=== PATIENT | female | born 2000 | race Caucasian/White ===

== ENCOUNTER 2023-08-17 13:30 | Outpatient (AMB) | payer OTHER, SELFPAY ==
--- NOTE | 2023-08-17 13:33 | MHC.OFFVIS ---
Intake Vital Signs 08/17/23 13:38 Height 5 ft 1 in Weight 210 lb BMI 39.7 BP 116/84 Blood Pressure Location Rt brachial Position Sitting Pulse 104 H Pulse Source Pulse Oximeter Pulse Oximetry (%) 99 Intake Visit Reasons: E-[employer]:RODRÍGUEZ/Insomnia/RLS?/concussion/BRIA/Unable to Lvm Intake Note: Patient presents for insomnia,BRIA and concussion. Patient states I've had alot of head trauma and a ot of symptoms with it to I also have insomnia. Allergies No Known Allergies Allergy (Verified 08/17/23 13:40) Medication List - Last Reconciled 08/17/23 by Glory Grace, ALEJANDRA alprazolam 0.5 mg PO DAILY PRN bupropion HCl 100 mg PO QAM dextroamphetamine-amphetamine 25 mg ER 1 cap PO QAM levonorgestrel-ethinyl estrad 0.1-20 mg-mcg (Vienva) 1 tab PO DAILY pantoprazole 40 mg PO DAILY topiramate 50 mg PO DAILY venlafaxine ER 37.5 mg PO DAILY HPI HPI Comments History of Present Illness Details Right-handed 23-yr-old female presents for new pt evaluation of headache and sleep disorder. Pt is accompanied by her friend. Pt reports she has had headaches since age 12-13 after she had a bad concussion. She had had 3 milder concussions prior to that. Headache questionnaire: Previous work-up? None Typical headache characteristics: Prodrome symptoms? Unsure Aura? Unsure Location, quality, characteristics? Pulling tightness in her mid-frontal- pressing/tightness pain. Pain intensity? 9/10 Associated symptoms? Photophobia, phonophobia, nausea, occasionally vomiting, brain fog, dizziness, yawning, fatigue, activity intolerance. Focal weakness, Parethesias, Autonomic s/s? Hand numbness (w/wo headaches), Postdrome? Usually not Triggers? not eating/drinking, poor sleep Any positional, valsalva, exertional, sexual activity triggers? None Menstrual triggers? None- on OCP Time of day? Usually later in the day Duration? A few hours Frequency? 4-5 times per week How does headache impact your life? She may not be able to do her daily activities. 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 Current acute medication use/interventions: Excedrin- not effective Previous acute medication use: None Current preventative medication use: Topiramate 50mg- for wet loss, but has not helped headaches. Venlafaxine- for mood, has not helped headaches, Previous preventative medication use: Sertraline- for mood and prevention. Non-pharmacological interventions: Ice pack History of musculoskeletal disorders or injury? Has some back pain. Had a back injury around age 12- from a figure skating accident. Used to have neck pain prior to perla mammoplasty in 2019. History of concussion/head injury? She had another concussion 2 yrs ago- s/s lasted just over a month. History of mood disorder? anxiety, depression, mood disorder, panic attacks. Currently looking for new psychiatrist. History of sleep disorder? Difficulty initiating and staying asleep, fatigue, snoring, am dry mouth. ESS- 12. She endorses BLE restlessness at rest and when in bed. She has h/o anemia. History of respiratory disease? Asthma History of CV disease? None History of coagulopathy? None History of endocrine or metabolic disease? None. Working w/ [employer] History of seizure? None History of GI disorder? GERD. Constipation, Diarrhea, blood in stool. Family planning? None- on OCP Family history of migraine or other headache disorder? mother has migraine and sleep apnea. PFSH Surgical History (Updated 08/17/23 @ 13:42 by ROBERT Isabel) Hx of bilateral breast reduction surgery Hx of cholecystectomy Family History (Updated 08/17/23 @ 13:43 by ROBERT Isabel) Mother Sleep apnea HTN (hypertension) Father Asthma Social History (Updated 08/17/23 @ 13:43 by ROBERT Isabel) Alcohol intake: current Patient Tobacco Use Status: Never used Tobacco Substance Use Type: Marijuana Questionnaire Restless Legs Rating Scale Overall, how would you rate the RLS discomfort in your legs or arms?: Severe Overall, how would you rate the need to move around because of your RLS symptoms?: Severe Overall, how much relief of your RLS arm or leg discomfort do you get from moving around?: Slight Relief Overall, how severe is your sleep disturbance from your RLS symptoms?: Severe How severe is your tiredness or sleepiness from your RLS symptoms?: Severe Overall, how severe is your RLS as a whole?: Severe How often do you get RLS symptoms?: Severe (This means 4 to 5 days a week.) When you have RLS symptoms, how severe are they on an average day?: Severe (This means 3 to 8 per 24 hour day.) Overall, how severe is the impact of your RLS symptoms on your ability to carry out your daily affairs, for example carrying out a satisfactory family, home, social, school, or work life?: Moderate How severe is your mood disturbance from your RLS symptoms-for example angry, depressed, sad, anxious, or irritable?: Moderate Total Score: 28 Rate your symptoms severity for the preceding week overall.: Severe Review of Systems Const Details: See scanned ROS form Physical Exam Vital Signs: Last Vital Signs Pulse 104 H 08/17/23 13:38 BP 116/84 08/17/23 13:38 Pulse Ox 99 08/17/23 13:38 BMI result Body Mass Index 39.7 Const Orientation/consciousness: patient oriented x3 HEENT Other: No palpable scalp tenderness. Mallampati grade IV Head: Yes normocephalic Resp Effort & Inspection: normal respiratory effort and able to speak in complete sentences Neuro Other: BUE- negative Tinel, Phalen, Medial compression tets Decreased right hand grasp Pronator drift- normal Right hand- decreased sensation General: patient oriented x3 Cranial nerves: Yes CN's II-XII intact bilaterally Cognition (Neuro): normal cognition Gait exam (Neuro): Normal gait present Deep tendon reflexes (DTR's): Right triceps reflex intensity grade: 2+, Left triceps reflex intensity grade: 2+, Rt Biceps (C5, C6): 2+, Left biceps reflex intensity grade: 2+, Right brachioradialis reflex intensity grade: 2+, Left brachioradialis reflex intensity grade: 2+, Right patellar reflex intensity grade: 2+ and Left patellar reflex intensity grade: 2+ Coordination: [id number] test normal Pupils: Normal pupillary reactivity/response: bilateral Psych Appearance: grossly normal Mental Status: mental status grossly normal Speech and movement: Normal speech and movement present Affect: normal affect Attitude: cooperative Thought process: Normal thought process present Assessment & Plan Assessment & Plan (1) Restless leg syndrome: Code(s): G25.81 - Restless legs syndrome (2) Anemia: Code(s): D64.9 - Anemia, unspecified (3) Numbness in both hands: Code(s): R20.0 - Anesthesia of skin (4) Worsening headaches: Code(s): R51.9 - Headache, unspecified (5) Weakness of right hand: Code(s): R29.898 - Other symptoms and signs involving the musculoskeletal system (6) Sleep difficulties: Code(s): G47.9 - Sleep disorder, unspecified (7) Snoring: Code(s): R06.83 - Snoring (8) Excessive daytime sleepiness: Code(s): G47.19 - Other hypersomnia (9) Chronic migraine without aura: Code(s): G43.709 - Chronic migraine without aura, not intractable, without status migrainosus Plan Pt advised to undergo: Brain MRI w/wo- to assess for central etiologies of worsening headaches, BUE paresthesias, decreased right hand grasp. BUE EMG/NCS HST to assess for sleep apnea. Will check labs to assess for common etiologies of RLS s/s. For overall headache management: Discussed importance of good self-care, including but not limited to maintaining a healthy diet, adequate fluid intake, adequate sleep, and engaging in regular physical activity. For headache triggers: Track headaches For acute headache treatment: Discussed importance of taking acute medications at the first sign of headache, however stressed importance of avoiding acute medication overuse (especially with combined headache medications). Trial Sumatriptan 100mg tab, 1/2 - 1 tab (50-100mg) at onset of headache, may repeat in 2 hours. Max of 2 tabs (200mg) per 24 hours. May adjunct with OTC Tylenol 650mg q 4 hours, Ibuprofen 600mg q 6 hours, or Naproxen 440mg q 12 hrs prn. Reviewed potential adverse effects of triptans, including but not limited to nausea, fatigue, chest tightness/tingling (usually passes within a few minutes), medication overuse headaches. Previous acute migraine medication trials: Excedrin Acute migraine medication contraindications: None at this time For headache prevention medication: Discussed that preventative medications should be taken routinely as prescribed for best effect, it may take several weeks for full effect to take effect. Start Emgality 240mg sc x's 1, then 120mg sc q month Continue Topiramate 50mg qd- for st loss Continue Venlafaxine 37.5mg qd- for mood Reviewed potential adverse effects of Emgality, including but not limited to injection site reactions. Previous migraine prevention medication trials: Sertraline- ineffective. Migraine prevention medication contraindications: Would not increase Topiramate furtehr- d/t pt already has paresthesias. BBs d/t asthma dx. Aimovig d/t constipation. Pt to follow-up in 3 months or sooner prn. Orders: Orders Comprehensive Met. Panel 08/17/23 D64.9 - Anemia, unspecified, G25.81 - Restless legs syndrome, R20.0 - Anesthesia of skin, R51.9 - Headache, unspecified MR head/brain wo/w con 08/17/23 R20.0 - Anesthesia of skin, R29.898 - Other symptoms and signs involving the musculoskeletal system, R51.9 - Headache, unspecified RT home sleep study Today G47.19 - Other hypersomnia, G47.9 - Sleep disorder, unspecified, R06.83 - Snoring Complete Blood Count Auto Diff 08/17/23 D64.9 - Anemia, unspecified, G25.81 - Restless legs syndrome, R20.0 - Anesthesia of skin, R51.9 - Headache, unspecified Vitamin B12 and Folate 08/17/23 D64.9 - Anemia, unspecified, G25.81 - Restless legs syndrome, R20.0 - Anesthesia of skin, R51.9 - Headache, unspecified Ferritin 08/17/23 D64.9 - Anemia, unspecified, G25.81 - Restless legs syndrome, R20.0 - Anesthesia of skin, R51.9 - Headache, unspecified IRON PROFILE 08/17/23 D64.9 - Anemia, unspecified, G25.81 - Restless legs syndrome, R20.0 - Anesthesia of skin, R51.9 - Headache, unspecified Folate 08/17/23 D64.9 - Anemia, unspecified, G25.81 - Restless legs syndrome, R20.0 - Anesthesia of skin, R51.9 - Headache, unspecified NE electromyogram (EMG) 08/17/23 R20.0 - Anesthesia of skin, R29.898 - Other symptoms and signs involving the musculoskeletal system Medications: New sumatriptan succinate 50 - 100 mg orally at onset of headache, may repeat in 2 hrs PRN; max 2 tabs per day or 4 tabs/week (may take with Ibuprofen) 12 tabs 6RF migraine headache 30 days galcanezumab-gnlm (Emgality Pen) 120 mg subcut ONCE 1 mL 6RF 30 days Coding Level of Care Code New Pt Level 4 (28984) Diagnoses Restless leg syndrome G25.81 Anemia D64.9 Numbness in both hands R20.0 Worsening headaches R51.9 Weakness of right hand R29.898 Sleep difficulties G47.9 Snoring R06.83 Excessive daytime sleepiness G47.19 Chronic migraine without aura G43.709
[2023-08-17 13:38] VITALS: BP 116/84; PULSE 104; O2SAT 99; BMI 39.7
== END 2023-08-17 15:14 | disposition home or self-care (01) ==
PROVIDERS: PCP Pediatrics; Visit Provider Nurse Practitioner Family
DX: G25.81 Restless legs syndrome (principal); D64.9 Anemia, unspecified; R20.0 Anesthesia of skin; R51.9 Headache, unspecified; R29.898 Other symptoms and signs involving the musculoskeletal system; G47.9 Sleep disorder, unspecified; R06.83 Snoring; G47.19 Other hypersomnia; G43.709 Chronic migraine without aura, not intractable, without status migrainosus
CPT/HCPCS: 99204

== ENCOUNTER → 2023-08-17 13:30 | Outpatient (BNVA) | payer OTHER, SELFPAY | PROVIDERS: PCP Pediatrics; Visit Provider Nurse Practitioner Family ==

== ENCOUNTER 2023-10-12 13:55 | Outpatient (REF) | payer OTHER, SELFPAY | END 2023-10-12 13:56 | disposition home or self-care (01) | LOC: HO.NEURO 13:55 | PROVIDERS: PCP Pediatrics; Visit Provider Nurse Practitioner Family | DX: R20.0 Anesthesia of skin (principal); R29.898 Other symptoms and signs involving the musculoskeletal system | CPT/HCPCS: 95886; 95911 ==

== ENCOUNTER → 2023-10-12 13:58 | Outpatient (BNV) | payer OTHER, SELFPAY | PROVIDERS: PCP Pediatrics; Visit Provider Physical Medicine & Rehabilitation | DX: R20.2 Paresthesia of skin (principal); M79.641 Pain in right hand; M79.642 Pain in left hand | CPT/HCPCS: 95886; 95911 ==

== ENCOUNTER → 2023-11-13 15:53 | Outpatient (REF) | payer OTHER, SELFPAY | LOC: HO.SL 15:53 | PROVIDERS: PCP Pediatrics; Visit Provider Nurse Practitioner Family | DX: G47.9 Sleep disorder, unspecified (principal); G47.19 Other hypersomnia; R06.83 Snoring | CPT/HCPCS: 95806 ==

== ENCOUNTER → 2023-11-13 16:01 | Outpatient (BNV) | payer OTHER, SELFPAY | PROVIDERS: PCP Pediatrics; Visit Provider Psychiatry & Neurology Neurology | DX: R06.83 Snoring (principal) | CPT/HCPCS: 95806 ==

== ENCOUNTER 2023-11-27 09:54 | Outpatient (AMB) | payer OTHER, SELFPAY ==
--- NOTE | 2023-11-27 10:10 | A.OFFVIS_ITS ---
Intake Vital Signs 11/27/23 10:11 Height 5 ft 1 in Weight 204 lb BMI 38.5 Pulse 100 Pulse Source Pulse Oximeter Pulse Oximetry (%) 99 Oxygen Delivery Method Room Air Intake Visit Reasons: 3 mo f/u-[place]elongo/Insonmina/RLs/concussion/Bari-LVM Intake Note: 3 month follow up insomnia. I've been sick lately because of my liver and stomach I'm looking into seeing a specialist at [facility]. Allergies No Known Allergies Allergy (Verified 11/27/23 10:15) Medication List - Last Reconciled 11/27/23 by ALEJANDRA Espinosa alprazolam 0.5 mg PO DAILY PRN bupropion HCl 100 mg PO QAM dextroamphetamine-amphetamine 25 mg ER 1 cap PO QAM galcanezumab-gnlm (Emgality Pen) 240 mg (2 mL) subcut ONCE 30 days levonorgestrel-ethinyl estrad 0.1-20 mg-mcg (Vienva) 1 tab PO DAILY pantoprazole 40 mg PO DAILY phentermine 15 mg PO DAILY sumatriptan succinate 50 - 100 mg orally at onset of headache, may repeat in 2 hrs PRN; max 2 tabs per day or 4 tabs/week (may take with Ibuprofen) 30 days topiramate 50 mg PO DAILY venlafaxine ER 37.5 mg PO DAILY HPI HPI Comments History of Present Illness Details 23-yr-old female presents for f/u visit. Pt reports she has had another exacerbation of her anorexia/vomiting s/s. She was out-of-work with this for 3 weeks in Oct. She continues to have days of vomiting, anorexia but when she does get hungry and eats- then she gets sick. She does have constant thirst- drinks water and Gatorade frequently. She is f/b PCP and weight loss clinic at [place]. Does need to establish care w/ an adult PCP. BUE EMG/NCS was normal. HST was done just recently, results pending. Initial lab work in August showed mildly elevated WBC, mildly low potassium, mildly elevated ALT, ferritin low normal at 26. She did have follow-up labs in October at [facility], which showed resolution of leukocytosis and hypokalemia, however her ALT and AST are now both elevated. See results below. Pt reports she has had migraines, more so when she does not feel well with her GI s/s. She continues to have some RUE numbness. In the past 2 weeks, she has had 2 migraine days per week. She tried Sumatriptan- caused some nausea, helped some. She did not start Emgality- was waiting for the loading dose. Baseline headache characteristics: Severe, Pulling tightness in her mid-frontal- pressing/tightness pain a/w photophobia, phonophobia, nausea, occasionally vom iting, brain fog, dizziness, yawning, fatigue, activity intolerance, Hand numbness (w/wo headaches). PFSH Surgical History Hx of bilateral breast reduction surgery Hx of cholecystectomy Family History Mother Sleep apnea HTN (hypertension) Father Asthma Social History (Updated 08/17/23 @ 13:43 by ROBERT Isabel) Alcohol intake: current Patient Tobacco Use Status: Never used Tobacco Substance Use Type: Marijuana Physical Exam Vital Signs: Last Vital Signs Pulse 100 11/27/23 10:11 Pulse Ox 99 11/27/23 10:11 Oxygen Delivery Method Room Air 11/27/23 10:11 BMI result Body Mass Index 38.5 Const General: cooperative and no acute distress Orientation/consciousness: patient oriented x3 Resp Effort & Inspection: normal respiratory effort and able to speak in complete sentences Neuro General: patient oriented x3 Cranial nerves: Yes CN's II-XII intact bilaterally Cognition (Neuro): normal cognition Psych Appearance: grossly normal Mental Status: mental status grossly normal Speech and movement: Normal speech and movement present Affect: normal affect Attitude: cooperative Results Reviewed Results Reviewed: BRL 10/11/23 11:15 08/17/23 15:39 WBC 8.4 12.6 H RBC 4.92 4.74 HGB 12.9 12.5 HCT 42 39.3 MCV 85.4 82.9 Platelet 325 299 ESR 15 Sodium 142 140 potassium 4.1 3.5 L chloride 107 108 bicarb level 24 19 anion gap 11 13 glucose level 94 73 BUN 11 11 creatinine 1.0 0.8 calcium 9.6 9.3 protein total 6.9 6.9 albumin 4.3 4.4 Ag ratio 1.7 1.8 alkaline phosphatase 91 98 lipase 20 AST 67 H 25 ALT 122 36 bilirubin total 0.6 0.6 vitamin B12 291 folic acid level 20 iron level 97 iron binding capacity unsaturated 342 iron binding capacity estimated 439 % iron sat 22 ferritin level 64 264 CRP 1.2 1.5 V-1-Bcyberkcxrs 207 Antitrypsin Phenotyping MM Ceruloplasmin 43 IgA 209 Tissue Transglutaminase Ab IgA < 0.5 Anti Hepatitis A IgM NEGATIVE Hepatitis B Surface Antigen NEGATIVE Hepatitis C Ab NEGATIVE Assessment & Plan Assessment & Plan (1) Chronic migraine without aura: Code(s): G43.709 - Chronic migraine without aura, not intractable, without status migrainosus (2) Nausea and vomiting: Code(s): R11.2 - Nausea with vomiting, unspecified (3) Postprandial vomiting: Code(s): R11.10 - Vomiting, unspecified (4) Weakness of right hand: Code(s): R29.898 - Other symptoms and signs involving the musculoskeletal system Plan Pt again advised to undergo: Brain MRI w/wo- to assess for central etiologies of worsening headaches, BUE paresthesias, decreased right hand grasp. HST completed- will review results when available. Reviewed recent labs- Aug 2024- notable for elevated WBC and K+- normal on f/u Oct 2023 labs, however increased AST/ALT. Will refer to GI. Reviewed BUE EMG/NCS- normal. For overall headache management: Continue to try to optimize good self-care, including but not limited to maintaining a healthy diet, adequate fluid intake, adequate sleep, and engaging in regular physical activity. For headache triggers: Track headaches For acute headache treatment: Hold Sumatriptan 100mg tab- not fully effective Trial rizatriptan 10 mg p.r.n., max daily dose 20 mg. Reviewed potential adverse effects of triptans, including but not limited to nausea, fatigue, chest tightness/tingling (usually passes within a few minutes), medication overuse headaches. Previous acute migraine medication trials: Excedrin Acute migraine medication contraindications: None at this time For headache prevention medication: Start Emgality 240mg sc x's 1, then 120mg sc q month Continue Topiramate 50mg qd- for wt loss Continue Venlafaxine 37.5mg qd- for mood Reviewed potential adverse effects of Emgality, including but not limited to injection site reactions. Previous migraine prevention medication trials: Sertraline- ineffective. Migraine prevention medication contraindications: Would not increase Topiramate further- d/t pt already has paresthesias. BBs d/t asthma dx. Aimovig d/t constipation. Future considerations: Amitriptyline which may help vomiting symptoms as well. Pt to follow-up in 3 months or sooner prn. Orders: Referrals Gastroenterology Referral G43.709 - Chronic migraine without aura, not intractable, without status migrainosus, R11.10 - Vomiting, unspecified, R11.2 - Nausea with vomiting, unspecified, R79.89 - Other specified abnormal findings of blood chemistry Medications: New rizatriptan max 2 tabs per day or 4 tabs per week 5 - 10 mg (0.5 - 1 x 10 mg) PO Q2H 21 days PRN 12 tabs 3RF migraine headache Changed From galcanezumab-gnlm (Emgality Pen) for 1st loading dose 120 mg subcut ONCE 30 days 2 mL 0RF To galcanezumab-gnlm (Emgality Pen) for 1st loading dose 240 mg (2 mL) subcut ONCE 30 days 2 mL 0RF Coding Level of Care Code Est Pt Level 4 (99635) Diagnoses Chronic migraine without aura G43.709 Nausea and vomiting R11.2 Postprandial vomiting R11.10 Weakness of right hand R29.897
[2023-11-27 10:11] VITALS: PULSE 100; O2SAT 99; BMI 38.5
== END 2023-11-27 11:05 | disposition home or self-care (01) ==
PROVIDERS: PCP Pediatrics; Visit Provider Nurse Practitioner Family
DX: G43.709 Chronic migraine without aura, not intractable, without status migrainosus (principal); R11.2 Nausea with vomiting, unspecified; R11.10 Vomiting, unspecified; R29.898 Other symptoms and signs involving the musculoskeletal system
CPT/HCPCS: 99214

== ENCOUNTER → 2023-11-27 09:54 | Outpatient (BNVA) | payer OTHER, SELFPAY | PROVIDERS: PCP Pediatrics; Visit Provider Nurse Practitioner Family ==

== ENCOUNTER 2023-12-31 10:25 | Outpatient (REF) | payer OTHER, SELFPAY ==
[2023-12-31 13:06] LABS: Alanine Aminotransferase 37 U/L (0-31); Albumin Level 4.1 g/dL (3.5-5.0); Alkaline Phosphatase 94 U/L (39-117); Aspartate Amino Transferase 26 U/L (5-31); Bilirubin Direct 0.2 mg/dL (0.0-0.5); Bilirubin Total 0.4 mg/dL (0.0-1.0); Lipase 12 U/L (8-78); Total Protein 7.3 g/dL (6.5-8.0)
[2023-12-31 13:25] LABS: Folate 8.8 ng/mL (> or = 4.0); Vitamin B12 285 pg/mL (200-900)
[2024-01-04 11:32] LABS: Vitamin D 25-OH, D2 <4 ng/mL; Vitamin D 25-OH, D3 35 ng/mL; Vitamin D 25-OH, Total 35 ng/mL (30-100)
[2024-01-05 16:28] LABS: Transglutaminase Ab IgG <1.0 U/mL; Transglutaminase IgA <1.0 U/mL
== END 2023-12-31 10:26 | disposition home or self-care (01) ==
LOC: HO.LAB 10:25
PROVIDERS: PCP Pediatrics; Visit Provider Nurse Practitioner Family
DX: R10.9 Unspecified abdominal pain (principal); E55.9 Vitamin D deficiency, unspecified; R74.01 Elevation of levels of liver transaminase levels; R19.7 Diarrhea, unspecified
CPT/HCPCS: 36415; 80076; 82306; 82607; 82746; 83690; 86364

== ENCOUNTER 2023-12-31 10:25 | Outpatient (AMB) | payer OTHER, SELFPAY ==
[2023-12-31 10:37] VITALS: BP 130/68; PULSE 78; O2SAT 99; BMI 38.5
--- NOTE | 2023-12-31 10:37 | A.OFFVIS_ITS ---
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 Patient reports that her symptoms of nausea and vomiting started about a year ago after [place]. Patient had couple episodes when she end up in the emergency room with last visit this past October. Patient reports that she used to smoke marijuana in the evening to help her go to sleep, however was told that that can cause hyperemesis and she stopped smoking. Patient states that she has not smoked since. Patient does not smoke any cigarettes does not drink any alcohol. She reports that when she gets those symptoms she will start vomiting and she is afraid to eat. In the past few weeks patient has been feeling okay without dyspepsia, dysphagia or odynophagia. No epigastric pain, however she does admit that she will have occasional loose stools. However patient does report that she is constipated and has been constipated for a long time. Patient reports that she was sent to middle school teacher when she was teenager for weight loss and she states that she rapidly last weight which caused her liver enzymes to go very high. Patient reports that since then she has gained lots of weight and now is going to bariatric services at [facility] for medical weight management. Patient does admit to be going under stress. 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 Patient denies any melena, hematochezia, unintentional weight loss or ribbon like stools. [facility] Surgical History Hx of bilateral breast reduction surgery Hx of cholecystectomy Family History Mother Sleep apnea HTN (hypertension) Father Asthma Social History Alcohol intake: current Patient Tobacco Use Status: Never used Tobacco Substance Use Type: Marijuana Review of Systems Const Denies weight gain and Denies weight loss ENT Reports no additional complaints, Denies dysphagia and Denies odynophagia Card Reports no additional complaints Resp Reports no additional complaints GI Reports abdominal pain, Denies belching, Denies melena, Denies bloating, Denies change in bowel habits, Reports constipation, Denies dysphagia, Denies excessive flatus, Denies dyspepsia, Denies heartburn, Denies diarrhea, Denies loose stools, Reports nausea, Denies odynophagia and Reports vomiting Reports no additional complaints Musc Reports no additional complaints Neuro Reports no additional complaints Psych Reports no additional complaints Endo Reports no additional complaints Physical Exam Vital Signs: Last Vital Signs Pulse 78 12/31/23 10:37 BP 130/68 12/31/23 10:37 Pulse Ox 99 12/31/23 10:37 Oxygen Delivery Method Room Air 12/31/23 10:37 BMI result Body Mass Index 38.5 Const General: healthy appearing and no acute distress Nutritional Appearance: obese Orientation/consciousness: patient oriented x3 Resp Effort & Inspection: normal respiratory effort, able to speak in complete sentences, no tracheal deviation and symmetric chest movement Auscultation: clear to auscultation bilaterally Cardio Rate: regular rate GI Inspection: Yes normal to inspection, No distended and Yes obesity Palpation (GI): Soft to palpation, not firm, nontender and No hepatosplenomegaly present Auscultation: normal bowel sounds General: Yes no CVA tenderness Back/Spine/Pelvis Back: no CVA tenderness Skin General skin exam: elasticity normal, turgor normal and dry skin Neuro General: patient oriented x3 Psych Appearance: grossly normal Mental Status: mental status grossly normal Assessment & Plan Assessment & Plan (1) Elevated LFTs: Code(s): R79.89 - Other specified abnormal findings of blood chemistry (2) Postprandial vomiting: Code(s): R11.10 - Vomiting, unspecified (3) Nausea and vomiting: Code(s): R11.2 - Nausea with vomiting, unspecified Qualifiers: Vomiting type: unspecified Qualified Code(s): R11.2 - Nausea with vomiting, unspecified (4) Postprandial epigastric pain: Code(s): R10.13 - Epigastric pain (5) IBS (irritable bowel syndrome): Code(s): K58.9 - Irritable bowel syndrome without diarrhea Qualifiers: Irritable bowel syndrome type: without diarrhea Qualified Code(s): K58.9 - Irritable bowel syndrome without diarrhea (6) History of cholecystectomy: Code(s): Z90.49 - Acquired absence of other specified parts of digestive tract (7) Constipation: Code(s): K59.00 - Constipation, unspecified Qualifiers: Constipation type: slow transit constipation Qualified Code(s): K59.01 - Slow transit constipation Plan We will rule out celiac, malabsorption, H pylori, thyroid study. Will recheck liver panel again. Patient will be started on Nexium. She was on pantoprazole, however she stopped taking it over a month ago. Avoid dietary triggers and late night snacking. Staying upright for minimum 3 hours after meals discussed with patient. Patient does report postprandial abdominal bloating. Low FODMAP diet discussed with patient. List of food recommended as well as list of food to avoid given to patient. Constipation, increase fluid intake and activity to promote better bowel motility. Patient can take senna daily. I will see patient in 3 months, sooner on as needed basis. If patient continues with symptoms despite current treatment we will send her for upper endoscopy to further evaluate for gastritis, esophagitis, duodenitis, gastric or peptic ulcers, celiac, H pylori. She is agreeable to this plan and verbalizes understanding of instructions. She was given the opportunity to ask questions and all questions answered. Thank you for allowing me to participate in her care Orders: Orders Transglutaminase Ab IgG Today R10.9 - Unspecified abdominal pain Transglutaminase IgA Today R10.9 - Unspecified abdominal pain Vitamin D 25-OH (D2 and D3) Today E55.9 - Vitamin D deficiency, unspecified H Pylori Breath Test Today K21.9 - Gastro-esophageal reflux disease without esophagitis Lipase Today R10.9 - Unspecified abdominal pain Liver Panel Today R74.01 - Elevation of levels of liver transaminase levels Vitamin B12 and Folate Today R19.7 - Diarrhea, unspecified Medications: New esomeprazole magnesium (Nexium) 40 mg PO DAILY 30 caps 5RF K21.9 - Gastro- esophageal reflux disease without esophagitis sennosides (Natural Senna Laxative) 17.2 mg (2 x 8.6 mg) PO BEDTIME 60 tabs 3RF constipation K59.00 - Constipation, unspecified Coding Level of Care Code New Pt Level 4 (21146) Diagnoses Elevated LFTs R79.89 Postprandial vomiting R11.10 Nausea and vomiting, unspecified vomiting type R11.2 Vomiting type: unspecified Postprandial epigastric pain R10.13 Irritable bowel syndrome without diarrhea K58.9 Irritable bowel syndrome type: without diarrhea History of cholecystectomy Z90.49 Slow transit constipation K59.01 Constipation type: slow transit constipation Time Spent (min) 45 Comment 30 minutes spent with patient and additional 15 minutes spent reviewing her records
== END 2023-12-31 11:40 | disposition home or self-care (01) ==
PROVIDERS: PCP Pediatrics; Visit Provider Nurse Practitioner Family
DX: R79.89 Other specified abnormal findings of blood chemistry (principal); R11.10 Vomiting, unspecified; R11.2 Nausea with vomiting, unspecified; R10.13 Epigastric pain; K58.9 Irritable bowel syndrome, unspecified; Z90.49 Acquired absence of other specified parts of digestive tract; K59.01 Slow transit constipation
CPT/HCPCS: 99204

== ENCOUNTER 2024-02-28 15:31 | Outpatient (AMB) | payer OTHER, SELFPAY ==
--- NOTE | 2024-02-28 15:32 | MHC.OFFVIS ---
Vital Signs 02/28/24 15:45 Height 5 ft 1 in Weight 200 lb 6 oz BMI 37.9 BP 130/80 Blood Pressure Location Lt brachial Position Sitting Pulse 105 H Pulse Source Pulse Oximeter Pulse Oximetry (%) 98 Oxygen Delivery Method Room Air Intake Visit Reasons: 3 mo f/u-[place]/RLs-LVM Intake Note: Patient presents for 3 months f/u. Headaches are less frequent and still difficulty sleeping at night. Wants to know if Emgality could effect weight or appetite? Still getting nausea episodes. Allergies No Known Allergies Allergy (Verified 02/28/24 15:41) Medication List - Last Reconciled 02/28/24 by ALEJANDRA Espinosa alprazolam 0.5 mg PO DAILY PRN bisacodyl (Dulcolax (bisacodyl)) 10 mg (2 x 5 mg) PO BEDTIME bupropion HCl SR 100 mg PO QAM dextroamphetamine-amphetamine 25 mg ER 1 cap PO QAM docusate sodium 100 mg PO DAILY esomeprazole magnesium (Nexium) 40 mg PO DAILY galcanezumab-gnlm (Emgality Pen) 240 mg (2 mL) subcut ONCE 30 days levonorgestrel-ethinyl estrad 0.1-20 mg-mcg (Vienva) 1 tab PO DAILY rizatriptan 5 - 10 mg (0.5 - 1 x 10 mg) PO Q2H PRN 21 days sennosides (Natural Senna Laxative) 17.2 mg (2 x 8.6 mg) PO BEDTIME sumatriptan succinate 50 - 100 mg orally at onset of headache, may repeat in 2 hrs PRN; max 2 tabs per day or 4 tabs/week (may take with Ibuprofen) 30 days topiramate 50 mg PO DAILY venlafaxine ER 37.5 mg PO DAILY HPI Comments Details: 23-yr-old female presents for f/u visit. Pt denies any significant interval medical changes. Has not had MRI brain yet. HST was inconclusive- she still has snoring, daytime tiredness and sleep difficulties. Pt has seen GI- initial work-up was negative. Started on omeprazole. Continues to have bouts of nausea. She is managing the constipation better- but has still had some breakthrough bouts. Has been craving salty snacks- which is new for her- she was wondering if this is r/t Emgality use. She reports she is having fewer migraine attacks. Now migraines come more so when there is a provoking trigger, such as not eating or drinking. She continues to have some RUE numbness. She did start Emgality- seems to be helping. Rizatriptan is more helpful. Baseline headache characteristics: Severe, Pulling tightness in her mid-frontal- pressing/tightness pain a/w photophobia, phonophobia, nausea, occasionally vomiting, brain fog, dizziness, yawning, fatigue, activity intolerance, Hand numbness (w/wo headaches). PFSH Surgical History Hx of bilateral breast reduction surgery Hx of cholecystectomy Family History Mother Sleep apnea HTN (hypertension) Father Asthma Social History Alcohol intake: current Patient Tobacco Use Status: Never used Tobacco Substance Use Type: Marijuana Physical Exam Vital Signs: Last Vital Signs Pulse 105 H 02/28/24 15:45 BP 130/80 02/28/24 15:45 Pulse Ox 98 02/28/24 15:45 Oxygen Delivery Method Room Air 02/28/24 15:45 BMI result Body Mass Index 37.9 Const General: cooperative and no acute distress Orientation/consciousness: patient oriented x3 Resp Effort & Inspection: normal respiratory effort and able to speak in complete sentences Neuro General: patient oriented x3 Cranial nerves: Yes CN's II-XII intact bilaterally Cognition (Neuro): normal cognition Psych Appearance: grossly normal Mental Status: mental status grossly normal Speech and movement: Normal speech and movement present Affect: normal affect Attitude: cooperative Assessment & Plan Assessment & Plan (1) Chronic migraine without aura: Code(s): G43.709 - Chronic migraine without aura, not intractable, without status migrainosus Category: Medical (2) Sleep difficulties: Code(s): G47.9 - Sleep disorder, unspecified Category: Medical (3) Snoring: Code(s): R06.83 - Snoring Category: Medical (4) Excessive daytime sleepiness: Code(s): G47.19 - Other hypersomnia Category: Medical (5) Weakness of right hand: Code(s): R29.898 - Other symptoms and signs involving the musculoskeletal system Category: Medical (6) RUE numbness: Code(s): R20.0 - Anesthesia of skin Category: Medical Plan Pt again advised to undergo Brain MRI w/wo- to assess for central etiologies of worsening headaches, BUE paresthesias, decreased right hand grasp. HST- inconclusive. Pt advsied to undergo in-lab sleep study to better assess for sleep apnea and PLMS. Reviewed BUE EMG/NCS- normal. ? For overall headache management: Continue to try to optimize good self-care, including but not limited to maintaining a healthy diet, adequate fluid intake, adequate sleep, and engaging in regular physical activity. For headache triggers: Track headaches ? For acute headache treatment: Continue rizatriptan 10 mg p.r.n., max daily dose 20 mg. Previous acute migraine medication trials: Excedrin Acute migraine medication contraindications: None at this time ? For headache prevention medication: Continue Emgality 120mg sc q month. This likely is not affecting her appetite- thoigh rarely may increase constipation risk. Continue Topiramate 50mg qd- for wt loss Continue Venlafaxine 37.5mg qd- for mood Reviewed potential adverse effects of Emgality, including but not limited to injection site reactions. Previous migraine prevention medication trials: Sertraline- ineffective. Migraine prevention medication contraindications: Would not increase Topiramate further- d/t pt already has paresthesias. BBs d/t asthma dx. Aimovig d/t constipation. Future considerations: Amitriptyline which may help vomiting symptoms as well. Qulipta- may help w/ wt loss. ? Pt to follow-up in 6 months or sooner prn. Orders: Orders RT PSG in-lab sleep study Today G47.19 - Other hypersomnia, G47.9 - Sleep disorder, unspecified, R06.83 - Snoring Medications: Discontinued sumatriptan succinate Discontinued Reason: Doctor's Order (0.5 - 1 x 100 mg) 50 - 100 mg orally at onset of headache, may repeat in 2 hrs PRN; max 2 tabs per day or 4 tabs/week (may take with Ibuprofen) 30 days 12 tabs 6RF migraine headache Coding Level of Care Code Est Pt Level 4 (95292) Diagnoses Chronic migraine without aura G43.709 Sleep difficulties G47.9 Snoring R06.83 Excessive daytime sleepiness G47.19 Weakness of right hand R29.898 RUE numbness R20.0
[2024-02-28 15:45] VITALS: BP 130/80; PULSE 105; O2SAT 98; BMI 37.9
== END 2024-02-28 16:40 | disposition home or self-care (01) ==
PROVIDERS: PCP Pediatrics; Visit Provider Nurse Practitioner Family
DX: G43.709 Chronic migraine without aura, not intractable, without status migrainosus (principal); G47.9 Sleep disorder, unspecified; R06.83 Snoring; G47.19 Other hypersomnia; R29.898 Other symptoms and signs involving the musculoskeletal system; R20.0 Anesthesia of skin
CPT/HCPCS: 99214

== ENCOUNTER → 2024-02-28 15:31 | Outpatient (BNVA) | payer OTHER, SELFPAY | PROVIDERS: PCP Pediatrics; Visit Provider Nurse Practitioner Family | DX: R11.2 Nausea with vomiting, unspecified (principal); G43.709 Chronic migraine without aura, not intractable, without status migrainosus; R11.10 Vomiting, unspecified ==

== ENCOUNTER 2024-03-31 11:06 | Outpatient (AMB) | payer OTHER, SELFPAY ==
--- NOTE | 2024-03-31 11:07 | A.OFFVIS_ITS ---
Vital Signs 03/31/24 11:18 Height 5 ft 1 in Weight 198 lb 13.711 oz BMI 37.6 BP 94/60 Blood Pressure Location Rt brachial Position Sitting Pulse 92 Pulse Source Pulse Oximeter Pulse Oximetry (%) 99 Oxygen Delivery Method Room Air Intake Visit Reasons: Follow up 3 months Intake Note: Melody presents to the office today for a scheduled 3 mos FUV. CC; Pt was rx'd senna and nexium at last visit. Pt was also instructed to stop taking nexium within the last 2 weeks. Pt did take the esomeprazole as of yesterday. Pt has confusion regarding the names of the medications and which ones to stop. Pt reports that they are still experiencing sx and have remained unchanged. Pt has been experiencing nausea, vomiting, lack of appetite. Pt has been having a lack of intake due to sx. Starch And Prosize Mixer Required: No Allergies No Known Allergies Allergy (Verified 03/31/24 11:15) HPI HPI Follow up 3 months: Details: LAST VISIT Elevated LFTs Postprandial vomiting Nausea and vomiting Postprandial epigastric pain IBS (irritable bowel syndrome) History of cholecystectomy Constipation Plan We will rule out celiac, malabsorption, H pylori, thyroid study. Will recheck liver panel again. Patient will be started on Nexium. She was on pantoprazole, however she stopped taking it over a month ago. Avoid dietary triggers and late night snacking. Staying upright for minimum 3 hours after meals discussed with patient. Patient does report postprandial abdominal bloating. Low FODMAP diet discussed with patient. List of food recommended as well as list of food to avoid given to patient. Constipation, increase fluid intake and activity to promote better bowel motility. Patient can take senna daily. I will see patient in 3 months, sooner on as needed basis. If patient continues with symptoms despite current treatment we will send her for upper endoscopy to further evaluate for gastritis, esophagitis, duodenitis, gastric or peptic ulcers, celiac, H pylori. She is agreeable to this plan and verbalizes understanding of instructions. She was given the opportunity to ask questions and all questions answered. ? Thank you for allowing me to participate in her care Orders Orders Transglutaminase Ab IgG Today R10.9 Transglutaminase IgA Today R10.9 Vitamin D 25-OH (D2 and D3) Today E55.9 H Pylori Breath Test Today K21.9 Lipase Today R10.9 Liver Panel Today R74.01 Vitamin B12 and Folate Today R19.7 Medications New esomeprazole magnesium (Nexium) 40 mg PO DAILY 30 caps 5RF K21.9 sennosides (Natural Senna Laxative) 17.2 mg (2 x 8.6 mg) PO BEDTIME 60 tabs 3RF constipation K59.00 * TODAY'S VISIT Patient is here today for follow-up and to discuss lab results. Patient is accompanied by her mother. Patient continues to have epigastric pain postprandially. Less vomiting, however she continues to have nausea and occasional vomiting postprandially. Patient had her blood work done and everything except for ALT was normal. Mildly elevated ALT, normal bili. Patient reports postprandial dyspepsia. Patient did not stop Nexium so we are unable to do breakfast today. Patient will take famotidine once or twice a day for the next couple weeks and will return for breath test. Patient denies any issues with anesthesia in the past. No history of sleep apnea. Not on any an ticoagulation medication. [facility] Surgical History Hx of bilateral breast reduction surgery Hx of cholecystectomy Family History Mother Sleep apnea HTN (hypertension) Father Asthma Social History Alcohol intake: current Patient Tobacco Use Status: Never used Tobacco Substance Use Type: Marijuana Review of Systems Const Denies weight gain and Denies weight loss ENT Reports no additional complaints, Denies dysphagia and Denies odynophagia Card Reports no additional complaints Resp Reports no additional complaints GI Denies abdominal pain, Denies belching, Denies melena, Denies bloating, Denies change in bowel habits, Denies dysphagia, Denies excessive flatus, Denies dyspepsia, Denies heartburn, Denies diarrhea, Denies loose stools, Denies nausea, Denies odynophagia and Denies vomiting Musc Reports no additional complaints Neuro Reports no additional complaints Psych Reports no additional complaints Endo Reports no additional complaints Physical Exam Vital Signs: Last Vital Signs Pulse 92 03/31/24 11:18 BP 94/60 03/31/24 11:18 Pulse Ox 99 03/31/24 11:18 Oxygen Delivery Method Room Air 03/31/24 11:18 BMI result Body Mass Index 37.6 Const General: healthy appearing and no acute distress Nutritional Appearance: obese Orientation/consciousness: patient oriented x3 Resp Effort & Inspection: normal respiratory effort, able to speak in complete sentences, no tracheal deviation and symmetric chest movement Auscultation: clear to auscultation bilaterally Cardio Rate: regular rate GI Inspection: Yes normal to inspection, No distended and Yes obesity Palpation (GI): Soft to palpation, not firm, nontender and No hepatosplenomegaly present Auscultation: normal bowel sounds General: Yes no CVA tenderness Back/Spine/Pelvis Back: no CVA tenderness Skin General skin exam: elasticity normal, turgor normal and dry skin Neuro General: patient oriented x3 Psych Appearance: grossly normal Mental Status: mental status grossly normal Results Reviewed Results Reviewed: Laboratory Tests 12/31/23 11:37 Total Bilirubin 0.4 Direct Bilirubin 0.2 AST 26 ALT 37 H Alkaline Phosphatase 94 Lipase 12 Vitamin B12 285 25-OH Vitamin D Total 35 Folate 8.8 Tiss Transglutamin IgG <1.0 Tiss Transglutamin IgA <1.0 Assessment & Plan Assessment & Plan (1) Elevated LFTs: Code(s): R79.89 - Other specified abnormal findings of blood chemistry Category: Medical (2) Postprandial vomiting: Code(s): R11.10 - Vomiting, unspecified Category: Medical (3) Nausea and vomiting: Code(s): R11.2 - Nausea with vomiting, unspecified Category: Medical Qualifiers: Vomiting type: unspecified Qualified Code(s): R11.2 - Nausea with vomiting, unspecified (4) Postprandial epigastric pain: Code(s): R10.13 - Epigastric pain (5) IBS (irritable bowel syndrome): Code(s): K58.9 - Irritable bowel syndrome without diarrhea Qualifiers: Irritable bowel syndrome type: without diarrhea Qualified Code(s): K58.9 - Irritable bowel syndrome without diarrhea (6) History of cholecystectomy: Code(s): Z90.49 - Acquired absence of other specified parts of digestive tract (7) Constipation: Code(s): K59.00 - Constipation, unspecified Qualifiers: Constipation type: slow transit constipation Qualified Code(s): K59.01 - Slow transit constipation Plan Patient is moving her bowels better now. Can continue taking Dulcolax daily. Start famotidine for the next 2 weeks and will resume Nexium after her breath testing. Discussed with patient avoiding dietary triggers and late night snacking. Staying upright for minimum 3 hours after meals discussed with patient. Patient will be sent for upper endoscopy to rule out gastritis, esophagitis, gastric or peptic ulcer, Bhatia's, H pylori. I will see patient a fter the procedure, sooner on as needed basis. She is agreeable to this plan and verbalizes understanding of instructions. She was given the opportunity to ask questions and all questions answered. Thank you for allowing me to participate in her care Medications: New famotidine (Pepcid) 20 mg PO BID 30 tabs 0RF K29.70 - Gastritis, unspecified, without bleeding Refilled bisacodyl (Dulcolax (bisacodyl)) 10 mg (2 x 5 mg) PO BEDTIME 180 tabs 3RF Coding Level of Care Code Est Pt Level 4 (97269) Diagnoses Elevated LFTs R79.89 Postprandial vomiting R11.10 Nausea and vomiting, unspecified vomiting type R11.2 Vomiting type: unspecified Postprandial epigastric pain R10.13 Irritable bowel syndrome without diarrhea K58.9 Irritable bowel syndrome type: without diarrhea History of cholecystectomy Z90.49 Slow transit constipation K59.01 Constipation type: slow transit constipation Time Spent (min) 35 Comment 20 minutes spent with patient and additional 15 minutes spent reviewing her records
[2024-03-31 11:18] VITALS: BP 94/60; PULSE 92; O2SAT 99; BMI 37.6
== END 2024-03-31 12:45 | disposition home or self-care (01) ==
PROVIDERS: PCP Pediatrics; Visit Provider Nurse Practitioner Family
DX: R79.89 Other specified abnormal findings of blood chemistry (principal); R11.10 Vomiting, unspecified; R11.2 Nausea with vomiting, unspecified; R10.13 Epigastric pain; K58.9 Irritable bowel syndrome, unspecified; Z90.49 Acquired absence of other specified parts of digestive tract; K59.01 Slow transit constipation
CPT/HCPCS: 99214

== ENCOUNTER → 2024-03-31 11:06 | Outpatient (BNVA) | payer OTHER, SELFPAY | PROVIDERS: PCP Pediatrics; Visit Provider Nurse Practitioner Family ==

== ENCOUNTER 2024-04-16 12:54 | Outpatient (REF) | payer OTHER, SELFPAY ==
[2024-04-17 11:36] LABS: H Pylori Breath Test Negative (Negative)
== END 2024-04-16 12:55 | disposition home or self-care (01) ==
LOC: HO.LNP 12:54
PROVIDERS: PCP Pediatrics; Visit Provider Nurse Practitioner Family
DX: R11.2 Nausea with vomiting, unspecified (principal); K21.9 Gastro-esophageal reflux disease without esophagitis
CPT/HCPCS: 83013; 99211

== ENCOUNTER 2024-04-16 12:54 | Outpatient (AMB) | payer OTHER, SELFPAY ==
--- NOTE | 2024-04-16 13:38 | AM.OFFVISNUR ---
Intake Visit Reasons: H Pylori test Allergies No Known Allergies Allergy (Verified 03/31/24 11:15) Nursing Note Patient presents for collection of H Pylori breath test. Patient has been fasting for 1 hour (nothing to eat, drink, no chewing gum or smoking) has not taken any antacid medication for at least 2 weeks and has no allergies to artificial sweeteners.?? Assessment & Plan Assessment & Plan (1) Nausea and vomiting: Code(s): R11.2 - Nausea with vomiting, unspecified Category: Medical Qualifiers: Vomiting type: unspecified Qualified Code(s): R11.2 - Nausea with vomiting, unspecified Plan Patient presents for collection of H Pylori breath test. Patient has been fasting for 1 hour (nothing to eat, drink, no chewing gum or smoking) has not taken any antacid medication for at least 2 weeks and has no allergies to artificial sweeteners.???This test checks for an overgrowth of bacteria in your stomach. We all have bacteria but some may have more than others. It is treatable. if the test comes back negative there is nothing else to do. If the test result is positive we will treat you with 2 antibiotics and a medication to decrease the acid in your stomach (PPI) for 2 weeks. Two weeks after you have completed the treatment we will retest you to make sure the overgrowth has resolved. Patient Instructions: Process for specimen collection and reason for testing was explained to the patient. Specimen collection. Patient instructed to take a deep breath and then exhale into the blue bag, filling it up as much as possible. Patient instructed to drink a mixture of water and the artificial sweetener with a straw. A 15 minute wait period was observed. Patient instructed to take a deep breath and then exhale into the pink bag, filling it up as much as possible.
== END 2024-04-16 13:39 | disposition home or self-care (01) ==
PROVIDERS: PCP Pediatrics; Visit Provider Nurse Practitioner Family
DX: R11.2 Nausea with vomiting, unspecified (principal)

== ENCOUNTER 2024-09-03 08:10 | Day surgery (SDC) | payer OTHER, SELFPAY ==
[2024-09-01 13:24] VITALS: BMI 37.6
--- NOTE | 2024-09-03 08:54 | HO.ANESPROP2 ---
HPI - Anesthesia Eval Consult details Narrative: colon screen PMFSH Active Problems Active Problems: All Active Problems RUE numbness (Acute) Elevated LFTs (Acute) Postprandial vomiting (Acute) Nausea and vomiting (Acute) Chronic migraine without aura (Acute) Excessive daytime sleepiness (Acute) Snoring (Acute) Sleep difficulties (Acute) Worsening headaches (Acute) Weakness of right hand (Acute) Numbness in both hands (Acute) Restless leg syndrome (Acute) Anemia (Acute) Past Medical History Medical History Sleep difficulties Postprandial vomiting RLS (restless legs syndrome) Anemia Migraines Family History Family History Mother Sleep apnea HTN (hypertension) Father Asthma Family history of problems with anesthesia: No Surgical History Surgical History Hx of bilateral breast reduction surgery Hx of cholecystectomy History of Problems with Anesthesia: No Social History Social History Alcohol intake: current Patient Tobacco Use Status: Never used Tobacco Substance Use Type: Marijuana Advance Directives: No Advance Directives Information Provided: Yes Meds Allergies Allergy/AdvReac Type Severity Reaction Status Date / Time No Known Allergies Allergy Verified 03/31/24 11:15 Home Medications ?Medication ?Instructions ?Recorded ?Confirmed ?Last Taken ?Type alprazolam 0.5 mg tablet 0.5 mg PO DAILY PRN Anxiety 08/17/23 09/01/24 Unknown History dextroamphetamine-amphetamine ER 1 cap PO QAM 08/17/23 09/01/24 Unknown History 25 mg 24hr capsule,extend release levonorgestrel-ethinyl estradiol 1 tab PO DAILY 08/17/23 09/01/24 Unknown History 0.1 mg-20 mcg tablet (Vienva) topiramate 50 mg tablet 50 mg PO DAILY 08/17/23 09/01/24 Unknown History bupropion HCl 150 mg tablet,12 hr 150 mg PO DAILY 03/31/24 09/01/24 Unknown History sustained-release ondansetron HCl 4 mg tablet 4 mg PO DAILY PRN Nausea And 03/31/24 09/01/24 Unknown History Vomiting venlafaxine 75 mg tablet,extended 75 mg PO DAILY 03/31/24 09/01/24 Unknown History release 24 hr Exam Height,Weight and Vital Signs: Height 5 ft 1 in Weight 90.265 kg Airway Mallampati Class: II TM Dist: >3cm Neck ROM: Full Denture: Upper Heart: rrr Lungs: cta Assessment and Plan Assessment Anesthesia Assessment: Anesthesia Plan Discussed Final Anesthetic Review Family History of Problems with Anesthesia: No History of Problems with Anesthesia: No NPO: Yes ASA Class: II Final Preanesthetic Review: No Changes in Pt Med Stat, Meds/Allgs Chart Reviewed, Consent Obtained/Reviewed and Anes Risks/Benef Reviewed Patient Risk: Low Procedure Risk: Low Anesthetic Plan Anesthetic Plan: MAC: Disposition: Standard PACU
[2024-09-03 08:57] VITALS: BMI 36.9
--- NOTE | 2024-09-03 09:03 | MHC.SHP ---
Pre-Procedural Eval Section A - 24 Hr Update-Section A only Date of Service: 09/03/24 Section B - Complete if H&P > 30 days Chief Complaint: Projectile vomiting,epigasgtric pain,vomiting,IBS Relevant Family History (Specify if Yes): No Relevant Social History: Other (specify) (thc) Present Medications: see Short Stay Collaborative assessment Medical History: Significant History (Sleep difficulties Postprandial vomiting RLS (restless legs syndrome) Anemia Migraines) History of Previous Operations: Relevant previous surgery/procedure and date(s) ( Hx of bilateral breast reduction surgery Hx of cholecystectomy) Allergies: Allergies Allergy/AdvReac Type Severity Reaction Status Date / Time No Known Allergies Allergy Verified 03/31/24 11:15 Review of Systems Sugical H&P ROS: Negative: Constitution, Cardiovascular, Respiratory, Neurological, Psychiatric, Hem-Onc, Allergic/Immunologic, Gastrointestinal, Genitourinary, Musculoskeletal, Integumentary, Endocrine and Eyes/Ears/Nose/Throat Exam Surgical H&P Exam: Normal: HEENT, Normal: Heart, Normal: Lungs, Normal: Extremities, Normal: Abdomen, Normal: Skin and Normal: Neurological Plan Diagnosis/Plan: Unchanged I have reviewed the history and physical and performed a pertinent physical examination on my patient. No changes have occurred unless specified. EGD, colo for assessment of sx Time Spent With Patient Time: Total time managing care of this patient today ____ minutes.
[2024-09-03 09:25] VITALS: BP 100/64; PULSE 88; RESP 16; TEMP 36.7; O2SAT 99
[2024-09-03 09:37] LABS: UPreg QC Valid YES; Urine Pregnancy NEGATIVE (NEGATIVE)
[2024-09-03] MEDS: Lactated Ringers 1,000 ML 50 ML IVCONT (09:38)
--- NOTE | 2024-09-03 10:24 | P.OPN-COLO_ITS ---
Colonoscopy Operative Note Operative Note Date of Service: 09/03/24 Narrative: Operative Information Procedure Description: EGD, Colonoscopy Indication: nausea, vomiting, abn bowel habit Anesthesia: MAC FLEXIBLE TRANSORAL UPPER GASTROINTESTINAL ENDOSCOPY AND COLONOSCOPY PROCEDURE NOTE UPPER ENDOSCOPY Consent: Indications for the procedure and potential complications of bleeding, perforation, reaction to medications and missed diagnosis were discussed with the patient and informed consent was obtained. Instrument: Olympus GIF H 190 J mid size upper endoscope Monitoring: Vital signs and clinical assessment, continuous EKG monitoring, Pulse oximetry, Carbon Dioxide monitoring and blood pressure monitoring were done throughout the procedure. Procedure: The patient was placed in the left lateral decubitis position and pre-procedure medications were administered and a bite block was placed. The endoscope was inserted into the mouth and advanced under direct vision to the third part of duodenum. A careful inspection was made as the upper endoscope was withdrawn including a retroflexed examination of the proximal stomach; Findings and interventions are described below. Findings: Larynx:normal Esophagus: GE junction at 38 cm, diaphragm hiatus at 38 cm, mild esophagitis, bx taken from GEJ, and random esophagus Stomach: Patchy erythema Biopsies were obtained. Grade 2 flap valve on retroflexed examination of the cardia. Duodenum: Normal bulb and descending duodenum, bx taken Intervention: Biopsies as noted above, COLONOSCOPY Instrument: Olympus variable stiffness pediatric scope 190L Colonoscopy Monitoring: Vital signs and clinical assessment, continuous EKG monitoring, Pulse oximetry, Carbon Dioxide monitoring and blood pressure monitoring were done throughout the procedure. Colon withdrawal time was 8 minutes. Procedure: The patient was placed in the left lateral decubitis position and pre-procedure medications were administered. After a digital rectal examination of the ano-rectum, the video colonoscope was inserted into the rectum and advanced through the colon to the cecum/TI. The colonoscope was slowly withdrawn in a retrograde panoramic fashion and the colon mucosa was carefully examined including a retroflexed view of the rectum. Findings and interventions are described below. Procedure Difficulty:moderate Findings: Terminal Ileum-not intubated Cecum:normal Ascending Colon: normal Transverse Colon -normal Descending Colon:normal Sigmoid Colon: normal Rectum: Retroflexion with small internal hemorrhoids, grade I Anorectum - normal Colon preparation: [place] Bowel Preparation Scale Right colon; 1 Transverse colon: 1 Left colon; 1 (0 = Unprepared colon segment with mucosa not seen due to solid stool that cannot be cleared. 1 = Portion of mucosa of the colon segment seen, but other areas of the colon segment not well seen due to staining, residual stool and/or opaque liquid. 2 = Minor amount of residual staining, small fragments of stool and/or opaque liquid, but mucosa of colon segment seen well. 3 = Entire mucosa of colon segment seen well with no residual staining, small fragments of stool or opaque liquid) Impression and Post Procedure Diagnosis: Endoscopy Findings: gastritis Colonoscopy Findings: poor prep internal hemorrhoids Plan: Await Pathology results Repeat Colonoscopy in 6-12 months or earlier if clinically indicated and compliance with prep High fiber diet leaflet avoid straining at stool, epsom salts and sitz bath, anusol supps or cream if H pylori pos then treat Above findings were reviewed with the patient and relevant handouts were provided if indicated.
[2024-09-03 10:29] VITALS: BP 92/54; PULSE 77; RESP 12; TEMP 36.4; O2SAT 98
[2024-09-03 10:44] VITALS: BP 110/75; PULSE 84; RESP 16; O2SAT 97
[2024-09-03 11:00] VITALS: BP 100/81; PULSE 89; RESP 16; TEMP 36.4; O2SAT 100
== END 2024-09-03 12:00 | disposition home or self-care (01) ==
PROVIDERS: Anesthesiology; PCP Pediatrics; Visit Provider Internal Medicine Gastroenterology
PROC: (CPT 45378; principal; 2024-09-03 09:50)
DX: K64.0 First degree hemorrhoids (principal); K58.9 Irritable bowel syndrome, unspecified; R19.4 Change in bowel habit; K29.70 Gastritis, unspecified, without bleeding; R79.89 Other specified abnormal findings of blood chemistry; R11.12 Projectile vomiting; R11.10 Vomiting, unspecified; Z90.49 Acquired absence of other specified parts of digestive tract
CPT/HCPCS: 45378; 43239; 81025; 88305; 88342; J2003; J2250; J2704

== ENCOUNTER → 2024-09-03 08:10 | Outpatient (BNV) | payer OTHER, SELFPAY | PROVIDERS: PCP Pediatrics; Visit Provider Internal Medicine Gastroenterology | DX: R11.2 Nausea with vomiting, unspecified (principal); K21.9 Gastro-esophageal reflux disease without esophagitis; K29.70 Gastritis, unspecified, without bleeding; R19.4 Change in bowel habit; K64.0 First degree hemorrhoids; Z91.199 Patient's noncompliance with other medical treatment and regimen due to unspecified reason | CPT/HCPCS: 43239; 45378 ==

== ENCOUNTER 2024-09-19 14:59 | Outpatient (AMB) | payer OTHER, SELFPAY ==
--- OUTSIDE RECORDS SUMMARY | 2024-09-19 15:02 | XMS_ITS ---
Author Name [facility] Organization Unknown History of Medication Use Medication Directions Dispensed Refills Start Date End Date [facility] acetaminophen (TYLENOL) tablet 650 mg 650 mg, oral, Once, On 09/13/24 at 0121, For 1 dose 09/15/2024 10/07/9999 completed cephalexin (KEFLEX) 500 mg capsule Take 1 capsule (500 mg total) by mouth 3 (three) times a day for 7 days. 09/15/2024 10/07/9999 active mupirocin (BACTROBAN) 2 % ointment Apply to each affected area twice daily for 5-days. 08/13/2024 10/07/9999 active LORazepam (ATIVAN) tablet 1 mg 1 mg, oral, Once, On 08/10/24 at 1329, For 1 dose 08/13/2024 10/07/9999 completed lidocaine-EPINEPHrin e-tetracaine (L.E.T.) 4-0.18-0.5 % topical gel Topical, Once, On 08/10/24 at 1329, For 1 dose 08/13/2024 10/07/9999 completed lidocaine (XYLOCAINE) 1 % injection 5 mL 5 mL, infiltration, Once, On 08/10/24 at 1329, For 1 dose 08/13/2024 10/07/9999 completed ondansetron (ZOFRAN-ODT) 4 MG disintegrating tablet Take 1 tablet (4 mg total) by mouth every 8 (eight) hours as needed for nausea. 05/07/2024 active cephalexin (KEFLEX) 500 MG capsule Take 1 capsule (500 mg total) by mouth 4 (four) times a day. 05/07/2024 active mupirocin (BACTROBAN) 2 % ointment Apply topically 3 (three) times a day. 05/07/2024 active lidocaine (PF) (XYLOCAINE-MPF) 1 % injection 5 mL 5 mL, Infiltration, Once, On Sun05/05/24 at 1515, For 1 dose 05/07/2024 completed cephalexin (KEFLEX) capsule 500 mg 500 mg, Oral, Once, On 05/05/24 at 1545, For 1 dose 05/07/2024 completed Problems Problem Status Onset Date Problem Type Date of Resoluti on Source Abscess of axilla, left active EncounterDiagnosisAct CTTJM H
--- NOTE | 2024-09-19 15:18 | A.OFFVIS_ITS ---
Intake Visit Reasons: 7 Month F/U Intake Note: Patient presents for 7 month follow up. Allergies budesonide [From Pulmicort] Allergy (Verified 09/19/24 15:19) Rash HPI Comments Details: 23-yr-old female presents for f/u visit. Pt denies any significant interval medical changes. She fell in 2012 hit her head on the concrete, has had a change in personality since. HST was inconclusive- she still has snoring, daytime tiredness and sleep difficulties. Diet: is poor, she is managing the constipation better. Has been craving salty snacks- which is new for her- she was wondering if this is d/t Emgality use. Sleep: Bedtime is 10pm, gets up at 12:30, and then at 4am, continues to have fragmented sleep daily, with snoring, choking and gasping for air and nightmares. Baseline headache characteristics: Severe, Pulling tightness in her mid-frontal- pressing/tightness pain a/w photophobia, phonophobia, nausea, occasionally vomiting, brain fog, dizziness, yawning, fatigue, activity intolerance, Hand n umbness (w/wo headaches). She reports she continues to have migraines, 2-3 a week lasting couple of hours, she is fatigued. Now migraines come more so when there is a provoking trigger, such as not eating or drinking. She continues to have some RUE numbness. She did start Emgality- seems to be helping. Rizatriptan is more helpful. 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 She is trying to find a PCP, hers is retiring, and needs a [facility] referral to manage her meds better. BMI is elevated, Struggles with weight, drinks beverages all day long, 64 ounces of water daily, drinks pedialyte 1-2 / week. Needs a pscyhiatrist to help her with navigating through some difficult challenges. [facility] Medical History Sleep difficulties Postprandial vomiting RLS (restless legs syndrome) Anemia Migraines Surgical History H/O eye surgery Hx of bilateral breast reduction surgery Hx of cholecystectomy Family History Mother Sleep apnea HTN (hypertension) Father Asthma Social History Alcohol intake: current Alcohol intake frequency: holidays/special occasions only Patient Tobacco Use Status: Never used Tobacco Substance Use Type: Marijuana Review of Systems Const All systems reviewed & are unremarkable except as noted in HPI and below ENT Reports Normal hearing present Neuro Reports Normal hearing present Physical Exam Const General: cooperative, comfortable and no acute distress Nutritional Appearance: average body habitus, obese (BMI is elevated ) and overweight Orientation/consciousness: patient oriented x3 Eyes Pupils: Equal, round and reactive pupils present Resp Effort & Inspection: normal respiratory effort and able to speak in complete sentences Neuro General: patient oriented x3 and moves all extremities Cranial nerves: Yes CN's II-XII intact bilaterally, Yes Facial sensation intact/muscles of mastication intact, Yes Equal, round and reactive pupils present, Yes Normal accommodation reflex present, Yes Bilaterally intact EOM present, Yes Nystagmus not present, Yes Normal facial strength present, Yes Midline tongue present, Yes Normal hearing present, Yes Ability to bilaterally rotate head present and Yes Ability to bilaterally elevate shoulders present Motor exam (neuro): 5/5 motor strength present throughout Deep tendon reflexes (DTR's): Right triceps reflex intensity grade: 2+, Left triceps reflex intensity grade: 2+, Rt Biceps (C5, C6): 2+, Left biceps reflex intensity grade: 2+, Right brachioradialis reflex intensity grade: 2+, Left brachioradialis reflex intensity grade: 2+, Right patellar reflex intensity grade: 2+ and Left patellar reflex intensity grade: 2+ Psych Appearance: grossly normal Mental Status: mental status grossly normal Affect: Labile affect present and Anxious affect present Attitude: cooperative and Avoids eye contact (attititude/behavior) Thought process: Normal thought process present Thought content: Normal thought content present Insight: Good insight present (Psych) Judgement: Good judgement present (Psych) Results Reviewed Results Reviewed: HST - inconclusive study GI Assessment & Plan Assessment & Plan (1) Sleep difficulties: Code(s): G47.9 - Sleep disorder, unspecified Category: Medical (2) Snoring: Code(s): R06.83 - Snoring Category: Medical (3) Excessive daytime sleepiness: Code(s): G47.19 - Other hypersomnia Category: Medical (4) Chronic migraine without aura: Code(s): G43.709 - Chronic migraine without aura, not intractable, without status migrainosus Category: Medical Qualifiers: Status migrainosus presence: without status migrainosus Intractability: intractable Qualified Code(s): G43.719 - Chronic migraine without aura, intractable, without status migrainosus Plan -Patient is looking for a PCP, hers is retiring, [place] [facility] [place]. -Patient needs ongoing therapy for mood, anxiety and depression, referral to Psychiatry. -Meds to be managed by Psychiatrist: Venlafaxine, Wellbutrin , Adderall , Alprazolam Prn, Topiramate -Obesity BMI is elevated, patient requested referral to Weight managemgent -HST was inconclusive patient continues to have fragmented sleep with snoring and abnormal sleep behaviours referral for In lab sleep study -Migraines are at baseline worse, some day and better Emgality and Rizatriptan continue to help, she will start monitoring frequency and intensity better, as lot so external factors into play at this time. Refilled Rizatriptan PRN migraine onset. Emgality she doesn't need right now. Patient Education: Diet and Exercise, speak to a therapist, and focus on sleep hygiene strategies. Orders: Orders MR head/brain wo/w con 02/28/24 R11.2 - Nausea with vomiting, unspecified, R20.0 - Anesthesia of skin, R29.898 - Other symptoms and signs involving the musculoskeletal system, R51.9 - Headache, unspecified RT PSG in-lab sleep study Today G43.709 - Chronic migraine without aura, not intractable, without status migrainosus, G47.19 - Other hypersomnia, G47.9 - Sleep disorder, unspecified, R06.83 - Snoring Referrals Medical Weight Management Referral E66.9 - Obesity, unspecified Psychiatry Outpatient Consultation Service F32.A - Depression, unspecified, F41.0 - Panic disorder [episodic paroxysmal anxiety], F41.9 - Anxiety disorder, unspecified Medications: Refilled rizatriptan max 2 tabs per day or 4 tabs per week 5 - 10 mg (0.5 - 1 x 10 mg) PO Q2H 21 days PRN 12 tabs 3RF migraine headache Coding Level of Care Code Est Pt Level 4 (63893) Diagnoses Sleep difficulties G47.9 Snoring R06.83 Excessive daytime sleepiness G47.19 Intractable chronic migraine without aura and without status migrainosus G43.719 Status migrainosus presence: without status migrainosus Intractability: intractable
== END 2024-09-19 16:08 | disposition home or self-care (01) ==
PROVIDERS: PCP Pediatrics; Visit Provider Physician Assistant Medical
DX: G47.9 Sleep disorder, unspecified (principal); R06.83 Snoring; G47.19 Other hypersomnia; G43.719 Chronic migraine without aura, intractable, without status migrainosus
CPT/HCPCS: 99214

== ENCOUNTER 2024-10-20 09:23 | Outpatient (REF) | payer OTHER, SELFPAY ==
--- OUTSIDE RECORDS SUMMARY | 2024-10-20 12:02 | XMS_ITS | Continuity of Care Document ---
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 Name Role Phone Marcia Grey MD Primary Care Physician [id number] Date(s): 07/28/24 - 09[facility]19/24 [facility] [address], [address] [place] [id number] Attending Physician: Liya Polanco MD Referring Physician: Marcia Grey MD Encounter Type: Pre Office Visit Allergies, Adverse Reactions, Alerts Substance Criticality Severity Reaction Reaction Severity Status Pulmicort Turbuhaler Active Medications acetaminophen 325 mg oral tablet 975 mg, 3, tablet, By Mouth, Every 6 hours, PRN, # 90 tablet, Refills 0, Tot. Refills 0, Maintenance, as needed for pain, 02/07/23 10:30:00 AM EDT, Route to Pharmacy Electronically, [facility]/pharmacy #[id number],Partial fill upon patient request if the prescription is for a schedule II opioid drug., 153, cm, 12/06/22 11:12:00 EST, Height, 94.6, kg, 02/07/23 8:22:00 EDT, Dry Weight Start Date: 02/07/23 Status: Ordered Quantity: 90.0 Unit: tablet Repeat number: 1 Adderall 20 mg oral tablet 1 tablet = 20 mg, By Mouth, Daily in AM, 0 Refills, Maintenance, 06/14/18 2:04:53 PM EDT Start Date: 06/14/18 Status: Ordered Repeat number: 1 Albuterol (Eqv-ProAir HFA) 90 mcg/inh inhalation aerosol TAKE 2 PUFFS BY MOUTH EVERY 4 HOURS NEEDED Start Date: 12/27/20 Status: Ordered Repeat number: 1 hydrALAZINE 0 Refills, Maintenance, 09/14/22 3:58:00 PM EST, Partial fill upon patient request if the prescription is for a schedule II opioid drug. Start Date: 09/14/22 Status: Ordered Repeat number: 1 ibuprofen 800 mg oral tablet 800 mg, 1, tablet, By Mouth, Every 8 hours, # 50 tablet, Refills 0, Tot. Refills 0, Maintenance, 02/07/23 10:30:00 AM EDT, Route to Pharmacy Electronically, [facility]/pharmacy #[id number], Partial fill upon patient request if the prescription is for a schedule II opioid drug., 153, cm, 12/06/22 11:12:00 EST, Height, 94.6, kg, 02/07/23 8:22:00 EDT, Dry Weight Start Date: 02/07/23 Status: Ordered Quantity: 50.0 Unit: tablet Repeat number: 1 venlafaxine 37.5 mg oral capsule, extended release 1 capsule = 37.5 mg, By Mouth, Daily, # 30 capsule, 1 Refills, Maintenance, 06/24/21 1:36:00 PM EDT,ER Capsule, [facility]/pharmacy #[id number], Partial fill upon patient request if the prescription is for a schedule II opioid drug., 155, cm, 06/09/21 17:07:00 EDT, Height, 72.7, kg, 06/09/21 17:07:00 EDT, Dry Weight Start Date: 06/24/21 Status: Ordered Quantity: 30.0 Unit: capsule Repeat number: 2 Vienva 100 mcg-20 mcg oral tablet 1 tablet, By Mouth, Daily, # 84 tablet, 3 Refills, Maintenance, 11/08/23 2:32:00 PM EST, [facility] ST[id number], 84, TAKE 1 TABLET BY MOUTH EVERY DAY, 154, cm, 03/28/23 8:33:00 EDT, Height, 90.1, kg, 238:33:00 EDT, Dry Weight Start Date: 11/08/23 Status: Ordered Quantity: 84.0 Unit: tablet Repeat number: 1 Vienva 100 mcg-20 mcg oral tablet See Instructions, TAKE 1 TABLET BY MOUTH EVERY DAY, # 84 tablet, 1 Refills, Maintenance, 09/18/24 5:20:00 PM EST, [id number], 84, TAKE 1 TABLET BY MOUTH EVERY DAY, 154, cm, 06/03/24 17:43:00 EDT, Height, 90.1, kg, 03/28/23 8:33:00 EDT, Dry Weight Start Date: 09/18/24 Status: Ordered Quantity: 84.0 Unit: tablet Repeat number: 2 Wellbutrin By Mouth, 0 Refills, Maintenance, 09/14/22 3:57:00 PM EST, Partial fill upon patient request if the prescription is for a schedule II opioid drug. Start Date: 09/14/22 Status: Ordered Repeat number: 1 Xanax 0.25 mg oral tablet 0.25 mg, 1, tablet, By Mouth, 3 times a day, PRN, Refills 0, Maintenance, for anxiety, 05/14/19 2:24:28 PM EDT Start Date: 05/14/19 Status: Ordered Repeat number: 1 Problem List Condition Confirmation Course Effective Dates Status H ealth Status Informant Breast mass Confirmed Active Childhood obesity Confirmed Active Chronic tension-type headache Confirmed Active Ha duct, cyst Confirmed Active Incomplete emptying of bladder Confirmed Active Obese class II Confirmed Active Oligomenorrhea Confirmed Active Contraception management Confirmed Active Social History Social History Type Response Smoking Status Never (less than 100 in lifetime) entered on: 06/09/21 Sex Female Sex Representation Female (finding) Patient Care team information Care Team Personnel Name: Marcia Grey MD Position: [facility] Physician - Pediatrics Member Role: PCP Address: [address] [place] [address] [place] [address]- Telecom: Care Team Related Persons Name: COREY ORDOÑEZ Name: OSWALDO MENDOZA Name: CHA MENDOZA Name: CHA MENDOZA Insurance Providers Guarantor name: [facility] Plan Information #: 1 Payer: [facility] POS Member Number: [id number] Policy Number: NA Group Number: NA Health Plan Information #: 2 Payer: [facility] POS Member Number: [id number] Policy Number: NA Group Number: NA
[2024-10-20 12:39] LABS: C Reactive Protein 12.06 mg/dL (< or = 0.50)
== END 2024-10-20 09:24 | disposition home or self-care (01) ==
LOC: HO.LAB 09:23
PROVIDERS: PCP Nurse Practitioner Family; Visit Provider Nurse Practitioner Family
DX: K58.9 Irritable bowel syndrome, unspecified (principal)
CPT/HCPCS: 36415; 86140

== ENCOUNTER 2024-10-20 09:23 | Outpatient (AMB) | payer OTHER, SELFPAY ==
--- NOTE | 2024-10-20 09:31 | MHC.OFFVIS ---
Vital Signs 10/20/24 09:32 Height 5 ft 1 in Weight 190 lb BMI 35.9 BP 101/59 L Blood Pressure Location Lt brachial Position Sitting Pulse 103 H Intake Visit Reasons: s/p EGD + [place] Intake Note: Patient follow up for EGD/Colonoscopy results. Patient cc: abdominal discomfort with bloating, acid reflex with burning sensation, diarrhea and couples of weeks constipation with bloody BM. 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 Can continue taking Dulcolax daily. Start famotidine for the next 2 weeks and will resume Nexium after her breath testing. Discussed with patient avoiding dietary triggers and late night snacking. Staying upright for minimum 3 hours after meals discussed with patient. Patient will be sent for upper endoscopy to rule out gastritis, esophagitis, gastric or peptic ulcer, Bhatia's, H pylori. I will see patient after the procedure, sooner on as needed basis. She is agreeable to this plan and verbalizes understanding of instructions. She was given the opportunity to ask questions and all questions answered. ? Thank you for allowing me to participate in her care Medications New famotidine (Pepcid) 20 mg PO BID 30 tabs 0RF K29.70 Refilled bisacodyl (Dulcolax (bisacodyl)) 10 mg (2 x 5 mg) PO BEDTIME 180 tabs 3RF UPPER ENDOSCOPY AND COLONOSCOPY Findings: Larynx:normal Esophagus: GE junction at 38 cm, diaphragm hiatus at 38 cm, mild esophagitis, bx taken from GEJ, and random esophagus Stomach: Patchy erythema Biopsies were obtained. Grade 2 flap valve on retroflexed examination of the cardia. Duodenum: Normal bulb and descending duodenum, bx taken Intervention: Biopsies as noted above, COLONOSCOPY Instrument: Olympus variable stiffness pediatric scope 190L Colonoscopy Monitoring: Vital signs and clinical assessment, continuous EKG monitoring, Pulse oximetry, Carbon Dioxide monitoring and blood pressure monitoring were done throughout the procedure. Colon withdrawal time was 8 minutes. Procedure: The patient was placed in the left lateral decubitis position and pre-procedure medications were administered. After a digital rectal examination of the ano-rectum, the video colonoscope was inserted into the rectum and advanced through the colon to the cecum/TI. The colonoscope was slowly withdrawn in a retrograde panoramic fashion and the colon mucosa was carefully examined including a retroflexed view of the rectum. Findings and interventions are described below. Procedure Difficulty:moderate Findings: Terminal Ileum-not intubated Cecum:normal Ascending Colon: normal Transverse Colon -normal Descending Colon:normal Sigmoid Colon: normal Rectum: Retroflexion with small internal hemorrhoids, grade I Anorectum - normal Colon preparation: [place] Bowel Preparation Scale Right colon; 1 Transverse colon: 1 Left colon; 1 (0 = Unprepared colon segment with mucosa not seen due to solid stool that cannot be cleared. 1 = Portion of mucosa of the colon segment seen, but other areas of the colon segment not well seen due to staining, residual stool and/or opaque liquid. 2 = Minor amount of residual staining, small fragments of stool and/or opaque liquid, but mucosa of colon segment seen well. 3 = Entire mucosa of colon segment seen well with no residual staining, small fragments of stool or opaque liquid) Impression and Post Procedure Diagnosis: Endoscopy Findings: gastritis Colonoscopy Findings: poor prep internal hemorrhoids Plan: Await Pathology results Repeat Colonoscopy in 6-12 months or earlier if clinically indicated and compliance with prep High fiber diet leaflet avoid straining at stool, epsom salts and sitz bath, anusol supps or cream if H pylori pos then treat Above findings were reviewed with the patient and relevant handouts were provided if indicated. PATHOLOGY RESULTS Diagnosis A. Duodenum, biopsy: Duodenal mucosa with preserved villi and no specific change. B. Stomach, biopsy: Gastric antral and body mucosa with minimal chronic inactive gastritis; negative for H.pylori, intestinal metaplasia and dysplasia. C. Gastroesophageal junction, biopsy: Squamous mucosa with hyperplasia and rare intraepithelial eosinophils (up to 1 per high-power field), suggesting esophagitis; no columnar mucosa present. D. Esophagus, random, biopsy: Squamous mucosa with no specific change; no columnar mucosa present. E. Colon, random, biopsy: Colonic mucosa with lymphoid aggregates and no specific change TODAY'S VISIT Patient is here today for follow-up after endoscopy and colonoscopy. Patient denies any ill effects from the prep, anesthesia or procedure itself. Patient had suboptimal prep and colonoscopy was recommended to be repeated in 6-12 months. Patient reports that she has been having loose stools. Denies any blood or mucus in her stools. Reports that any time she eats she will have epigastric pain. Patient reports that when she has loose stools she does not feel like she empties her bowels completely. Patient's sometimes have to sit in the toilet for a while before having a bowel movement. Patient is not taking any PPI. Patient states that when she was started taking Nexium, however she reports that she did not have any change. Did not noticed any difference so she stopped taking it. Currently patient does not have a PCP so she is unable to get her medication filled. Patient does feel stressed out. New PCP appointment is in April. Will try to send message to schedulers to see if they can book something sooner for patient. Patient denies melena, hematochezia. Reports dyspepsia without dysphagia or odynophagia. [facility] Medical History Sleep difficulties Postprandial vomiting RLS (restless legs syndrome) Anemia Migraines Surgical History H/O eye surgery Hx of bilateral breast reduction surgery Hx of cholecystectomy Family History Mother Sleep apnea HTN (hypertension) Father Asthma Social History Alcohol intake: current Alcohol intake frequency: holidays/special occasions only Patient Tobacco Use Status: Never used Tobacco Substance Use Type: Marijuana Review of Systems Const Denies weight gain and Denies weight loss ENT Reports no additional complaints, Denies dysphagia and Denies odynophagia Card Reports no additional complaints Resp Reports no additional complaints GI Reports abdominal pain, Denies belching, Denies melena, Reports bloating, Denies change in bowel habits, Reports constipation, Denies dysphagia, Denies excessive flatus, Reports dyspepsia, Denies heartburn, Denies diarrhea, Reports loose stools, Reports nausea, Denies odynophagia and Denies vomiting Reports no additional complaints Musc Reports no additional complaints Neuro Reports no additional complaints Psych Reports no additional complaints Endo Reports no additional complaints Physical Exam Vital Signs: Last Vital Signs Pulse 103 H 10/20/24 09:32 BP 101/59 L 10/20/24 09:32 BMI result Body Mass Index 35.9 Const General: healthy appearing and no acute distress Nutritional Appearance: obese Orientation/consciousness: patient oriented x3 Resp Effort & Inspection: normal respiratory effort, able to speak in complete sentences, no tracheal deviation and symmetric chest movement Auscultation: clear to auscultation bilaterally Cardio Rate: regular rate GI Inspection: Yes normal to inspection, No distended and Yes obesity Palpation (GI): Soft to palpation, not firm, nontender and No hepatosplenomegaly present Auscultation: normal bowel sounds General: Yes no CVA tenderness Back/Spine/Pelvis Back: no CVA tenderness Skin General skin exam: elasticity normal, turgor normal and dry skin Neuro General: patient oriented x3 Psych Appearance: grossly normal Mental Status: mental status grossly normal Assessment & Plan Assessment & Plan (1) Nausea and vomiting: Code(s): R11.2 - Nausea with vomiting, unspecified Category: Medical Qualifiers: Vomiting type: unspecified Qualified Code(s): R11.2 - Nausea with vomiting, unspecified (2) Postprandial vomiting: Code(s): R11.10 - Vomiting, unspecified Category: Medical (3) Elevated LFTs: Code(s): R79.89 - Other specified abnormal findings of blood chemistry Category: Medical (4) Postprandial epigastric pain: Code(s): R10.13 - Epigastric pain (5) IBS (irritable bowel syndrome): Code(s): K58.9 - Irritable bowel syndrome, unspecified Qualifiers: Irritable bowel syndrome type: with both diarrhea and constipation Qualified Code(s): K58.2 - Mixed irritable bowel syndrome (6) History of cholecystectomy: Code(s): Z90.49 - Acquired absence of other specified parts of digestive tract (7) Constipation: Code(s): K59.00 - Constipation, unspecified Qualifiers: Constipation type: slow transit constipation Qualified Code(s): K59.01 - Slow transit constipation (8) GERD (gastroesophageal reflux disease): Code(s): K21.9 - Gastro-esophageal reflux disease without esophagitis Qualifiers: Esophagitis presence: with esophagitis Esophagitis bleeding: without hemorrhage Qualified Code(s): K21.00 - Gastro-esophageal reflux disease with esophagitis, without bleeding Plan Patient will start taking lansoprazole in the morning and sucralfate at bedtime. Avoid dietary triggers and late night snacking. Staying upright for minimum 3 hours after meals discussed with patient. Frequent diarrhea, however patient does admit that she is constipated as well. Will send her to get CRP and fecal calprotectin. We will rule out IBD versus IBS. Patient will try fiber with probiotics. However she was encouraged to take Dulcolax in the evening to help her empty her bowels completely. Mild elevation in liver enzymes. Patient is on Topamax preventative for migraine headaches the elevation could be related to that. Message sent to surgical schedulers to book colonoscopy as patient had suboptimal prep. Patient will follow-up after. Long discussion about diet choices. Patient and her mom were given list of food recommended as well as list of food to avoid. They are both agreeable to plan of care and verbalizes understanding of instructions. They were given the opportunity to ask questions and all questions answered. Thank you for allowing me to participate in her care Orders: Orders Calprotectin, Fecal Today R15.9 - Full incontinence of feces C Reactive Protein Today K58.9 - Irritable bowel syndrome, unspecified Medications: New sucralfate 1 g PO BEDTIME 30 tabs 4RF R19.7 - Diarrhea, unspecified lansoprazole 30 mg PO DAILY 30 caps 3RF NS K21.9 - Gastro-esophageal reflux disease without esophagitis Refilled bisacodyl (Dulcolax (bisacodyl)) 10 mg (2 x 5 mg) PO BEDTIME 180 tabs 3RF Discontinued esomeprazole magnesium (Nexium) Discontinued Reason: Doctor's Order 40 mg PO DAILY 30 caps 5RF K21.9 - Gastro-esophageal reflux disease without esophagitis sennosides (Natural Senna Laxative) Discontinued Reason: Doctor's Order 17.2 mg (2 x 8.6 mg) PO BEDTIME 60 tabs 3RF constipation K59.00 - Constipation, unspecified docusate sodium Discontinued Reason: Doctor's Order 100 mg PO DAILY 30 caps 3RF K59.00 - Constipation, unspecified Coding Level of Care Code Est Pt Level 4 (03509) Diagnoses Nausea and vomiting, unspecified vomiting type R11.2 Vomiting type: unspecified Postprandial vomiting R11.10 Elevated LFTs R79.89 Postprandial epigastric pain R10.13 Irritable bowel syndrome with both constipation and diarrhea K58.2 Irritable bowel syndrome type: with both diarrhea and constipation History of cholecystectomy Z90.49 Slow transit constipation K59.01 Constipation type: slow transit constipation Gastroesophageal reflux disease with esophagitis without hemorrhage K21.00 Esophagitis presence: with esophagitis Esophagitis bleeding: without hemorrhage Time Spent (min) 40 Comment 25 minutes spent with patient and additional 15 minutes spent reviewing her records
[2024-10-20 09:32] VITALS: BP 101/59; PULSE 103; BMI 35.9
== END 2024-10-20 10:19 | disposition home or self-care (01) ==
PROVIDERS: PCP Pediatrics; Visit Provider Nurse Practitioner Family
DX: R11.2 Nausea with vomiting, unspecified (principal); R11.10 Vomiting, unspecified; R79.89 Other specified abnormal findings of blood chemistry; R10.13 Epigastric pain; K58.2 Mixed irritable bowel syndrome; Z90.49 Acquired absence of other specified parts of digestive tract; K59.01 Slow transit constipation; K21.00 Gastro-esophageal reflux disease with esophagitis, without bleeding
CPT/HCPCS: 99214

== ENCOUNTER → 2024-11-05 14:02 | Outpatient (BNVA) | payer OTHER, SELFPAY | PROVIDERS: PCP Nurse Practitioner Family; Visit Provider Surgery ==

== ENCOUNTER 2024-12-12 11:56 | Outpatient (AMB) | payer OTHER, SELFPAY ==
--- NOTE | 2024-12-12 11:58 | A.OFFPC_ITS ---
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 patient also needs med refill Cover Creaser Required: No Allergies budesonide [From Pulmicort] Allergy (Verified 12/12/24 12:16) Rash Medication List - Last Reconciled 12/12/24 by Xin Murray, CARRIER DRIVER- alprazolam 0.5 mg PO DAILY PRN bupropion HCl SR 150 mg PO DAILY dextroamphetamine-amphetamine 30 mg (Adderall) 30 mg PO DAILY famotidine (Pepcid) 20 mg PO BID 90 days galcanezumab-gnlm (Emgality Pen) 240 mg (2 mL) subcut ONCE 30 days lansoprazole 30 mg PO DAILY NS levonorgestrel-ethinyl estrad 0.1-20 mg-mcg (Vienva) 1 tab PO DAILY ondansetron HCl mg PO DAILY rizatriptan 5 - 10 mg (0.5 - 1 x 10 mg) PO Q2H PRN 21 days sucralfate 1 g PO BEDTIME topiramate mg PO DAILY venlafaxine ER 100 mg PO DAILY Tobacco use date assessed: 12/12/24 Dental Screening Dental Screen Date: 12/12/24 Did you have a dental visit in the last 12 months?: Yes Did you have a dental problem in the last 6 months where you did not have access to dental care?: No Was dental information given to patient?: Patient has dentist HPI HPI Comments History of Present Illness Details Hyun 24 y/o f with anemia, chronic migraine w ithout aura, generalized anxiety disorder with panic, major depressive disorder, obesity, RLS, elevated LFTs, IBS-C, aDHD s/p bilateral breast reduction surgery, cholecystectomy Health Maintenance: Colon/EGD 08/2024 at [facility] PAP active w MANAGER MATERIAL at [facility] Tdap 2022 Flu 2023 Specialists: Neurology Gastroenterology @ [facility] and at [facility] Psychiatry [facility] in [place] Weight management senior controller History of Present Illness - The patient is a 24-year-old female pr esenting to [facility] as a new patient with multiple chronic issues and seeking intermittent [place] certification due to chronic illnesses. - Anemia history of: Recent lab results indicate no current anemia concerns; previously noted in history without recent labs at current facility. - Chronic Migraine: Managed under the me re of neurology with ongoing consideration for updated imaging. - Generalized Anxiety Disorder with Kristopher c and Major Depressive Disorder: Actively treated with alprazolam, bupropion, and venlafaxine. Needs referral to counselor and med prescriber. PCP was managing. - Obesity: Under management with potenti al surgical intervention requested; paperwork prepared for submission. - Gastroesophageal Reflux Disease (GERD) and Constipation: Managed with a combination of medications including Pepcid, lansoprazole, sucralfate, and intermittent use of Zofran. Active w GI - Attention Deficit Hyperactivity Disord er (ADHD): Medication management ongoing with adderall. 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 - Psychosocial: Seeking management for [facility]; involves neurology, psychiatry, and gastrointestinal care. - Weight Management: Currently engaged w [facility] weight management services and considering surgical options for obesity. Review of Systems - Gastrointestinal: Reports chronic GERD , episodes of severe vomiting and diarrhea, managed with Pepcid, lansoprazole, and sucralfate. - Psychiatric: Reports anxiety and panic , depressive episodes; currently medicated. - Neurological: Reports chronic migraine s; under neurologic care. - Musculoskeletal: Reports restless legs syndrome; managed without specific medication noted. Physical Exam General: Well developed, well nourished, in no acute distress. Appears stated age. Head: Normocephalic, atraumatic. Eyes: Pupils are equal, round and reactive to light and accommodation. Conjunctivae are clear. scleras nonicteric Lungs: Clear to auscultation bilaterally. No rales, rhonchi or wheeze noted. Good air flow in all ricketts. Heart: Regular rate and rhythm. No murmurs, click, rubs or gallops are noted. Abdomen: Bowel sounds present in all quadrants. The abdomen is soft, mildly tender generally speaking with no masses or organomegaly noted. No hernias are noted. Psych: Normal eye contact, affect and mood appropriate, and normal interactions. Patient is alert and appropriate to context. Results Labs from 11/2024 done by outside GI provider reviewed in detail along w/ the ones from today - Labs: Iron studies and ferritin levels normal, no presence of anemia; liver enzymes near normal, ALT mildly elevated; Hepatitis A IgG positive, IgM negative. CBC, TSH WNL Discussion Notes During the visit, I discussed with the patient the results of her lab tests, indicating that she does not have current anemia and her liver enzyme levels are mostly normal. Past exposure to Hepatitis A was noted; however, this does not indicate active infection. The patient?s request for FMLA was acknowledged, and the necessary documentation was initiated. I outlined the proper management of her mental health and chronic migraine conditions as led by current specialists, neurology, and psychiatry, and coordinated the ongoing medication management. I provided options for potentially expediting her mental health appointment process and filled prescriptions for needed medications. The patient expressed understanding of the ongoing management of her conditions and was agreeable to the plan. Follow-up in terms of employment certification and mental health management was established, with instructions for interim communication through the patient portal. Assessment and Plan 1. Anemia: No current concerns from rece nt labs; continued observation recommended. 2. Chronic Migraine: Managed by neurolog y with ongoing medication and imaging evaluations. 3. Generalized Anxiety Disorder with Partida ic and Major Depressive Disorder: Managed with medications, pending psychiatry follow-up for comprehensive updates in care. NN referral 4. Obesity: Candidate for surgical inter vention, pending final decision and administrative completion. 5. Gastroesophageal Reflux Disease (GERD ) and Constipation: Medications managing symptoms effectively; continues under current regimen unless new symptoms arise. FU with GI locally and at [place] 6. Past Hepatitis A Infection: Previous exposure noted, no current active treatment necessary at this time. Patient Instructions - Continue current medication therapy as prescribed. - Follow up with specialists as schedule d: neurology, gastroenterology, weight management. - Utilize patient portal for health comm unication related to appointments or new symptoms. - Submit FMLA certification paperwork fo r HR according to guidelines provided. - Expect contact from nurse navigation valeria connelly within two weeks; reach out via patient portal if not contacted. RTO April CPE sooner PRN Consent Patient was informed and verbally consented to the use of an ambient scribe for clinic note documentation during this visit. Total time spent caring for the patient today was 45 minutes. This includes time spent before the visit reviewing the chart, time spent during the visit, and time spent after the visit on documentation, reviewing laboratory results, diagnostic imaging, medications, performing a medically necessary evaluation, counseling on diagnoses, care coordination, ordering appropriate tests, ordering appropriate medications, review of tests performed by other providers, reporting test results with the patient, communication with other healthcare providers. [facility] Medical History (Updated 12/12/24 @ 15:54 by Xin Murray, [facility]) Anemia Anxiety and depression Bipolar affect, depressed Concussion GERD (gastroesophageal reflux disease) Migraines Postprandial vomiting RLS (restless legs syndrome) Shingles Sleep difficulties Surgical History H/O eye surgery Hx of bilateral breast reduction surgery Hx of cholecystectomy Family History (Updated 12/12/24 @ 12:59 by Melinda Delgadillo MA) Mother Sleep apnea HTN (hypertension) High cholesterol Father Asthma Social History (Updated 12/12/24 @ 12:10 by Melinda Delgadillo MA) Household Members: Family Both parents involved: Yes Caregiver staying overnight: No Housing: House Are you a primary career development engineer to a significant other at home: No Do you presently have visiting nurse or other home services: No 75 years or older and lives alone: No Alcohol intake: current Alcohol intake frequency: holidays/special occasions only Patient Tobacco Use Status: Never used Tobacco e-Cigarette/Vaping Use: Never Used Second Hand Smoke Exposure: No Substance Use Type: Marijuana service: No Current occupational status: employed 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 1. Little interest or pleasure in doing things: more than half the days 2. Feeling down, depressed, or hopeless: several days 3. Trouble falling or staying asleep, or sleeping too much: more than half the days 4. Feeling tired or having little energy: more than half the days 5. Poor appetite or overeating: more than half the days 6. Feeling bad about yourself - or that you are a failure or have let yourself or your family down: more than half the days 7. Trouble concentrating on things, such as reading the newspaper or watching television: not at all 8. Moving or speaking so slowly that other people could have noticed. Or the opposite - being so fidgety or restless that you have been moving around a lot more than usual: not at all 9. Thoughts that you would be better off or of hurting yourself in some way: not at all Total score: 11 Depression Screening Interpretation: Positive Depression Screening Follow-up: Existing condition and In treatment Depression Screening Done: Yes 06121 - PHQ-9 Billing: Yes Source: Developed by Drs. Jeff Stewart, Tonya Noel, Jean Carlos Nova and colleagues, with an educational funmi from [employer]. Thrive Questionnaire Date Thrive assessed: 12/12/24 I am a: Patient What is your living situation today?: I have a steady place to live Within the past 12 months, did the food you bought not last and you didn't have the money to get more?: Never true Within the past 12 months, did you worry whether your food would run out before you got money to buy more?: Never true Do you have trouble paying for medicines?: No Do you have trouble getting transportation to medical appointments?: No Do you have trouble paying your heating and electricity bill?: No Do you have trouble taking care of your child, family member or friend?: No Do you have trouble with day-to-day activities such as bathing, preparing meals, shopping, managing finances, etc.?: No Are you currently unemployed and looking for a job?: No Are you interested in more education?: Yes Please select the resources that you would like help with: Education and None Currently or been in a relationship where the following occur: I choose not to answer THRIVE Score: 0 AUDIT C Alcohol Use Questionnaire (AUDIT-C) 1. How often do you have a drink containing alcohol?: 2-4 times a month 2. How many drinks containing alcohol do you have on a typical day when you are drinking?: 1 or 2 3. How often do you have six or more drinks on one occasion?: Never Total Score: 2 Score Reviewed/Action Taken: Yes REGGIE-7 AMB Questionnaire REGGIE-7 Date REGGIE - 7 assessed: 12/12/24 Feeling nervous, anxious, or on edge: 2 = More than half the days Not being able to stop or control worryin = More than half the days Worrying too much about different things: 2 = More than half the days Trouble relaxin = More than half the days Being so restless that it is hard to sit still: 1 = Several days Becoming easily annoyed or irritable: 1 = Several days Feeling afraid as if something awful might happen: 1 = Several days Total REGGIE-7 score (0-4 normal; 5-9 mild; 10-14 moderate; 15-21 severe): 11 Source: Developed by Drs. Jeff Stewart, Tonya Noel, Jean Carlos Nova and colleagues, with an educational funmi from [employer]. REGGIE-7 Assessment Billing REGGIE-7 Assessment Tool: REGGIE-7 Assessment 00071 Physical exam (Primary Care) Vital Signs: Last Vital Signs Temp 96.8 F 12/12/24 12:10 Pulse 81 12/12/24 12:10 Resp 12 12/12/24 12:10 BP 98/67 12/12/24 12:10 Pulse Ox 99 12/12/24 12:10 Oxygen Delivery Method Room Air 12/12/24 12:10 BMI result Body Mass Index 34.8 BMI Assessment/Plan discussion: High BMI High, discussed plan: lifestyle Tobacco/Smoking Status: Tobacco use Status Tobacco use date assessed 12/12/24 12/12/24 12:12 Patient Tobacco Use Status Never used Tobacco 12/12/24 12:10 e-Cigarette/Vaping Use Never Used 12/12/24 12:12 PHQ-9: PHQ-9 Score PHQ-9: Total score 11 12/12/24 12:58 Depression Screening Interpretation: Positive Depression Screening Follow-up: Existing condition and In treatment Thrive Assessment: Date of Thrive Assessment Date Thrive assessed 12/12/24 12/12/24 12:01 Currently or been in a relationship where the following occur: I choose not to answer Coding Level of Care Code New Pt Level 4 (53218) Complex EM visit Add On G2211 Diagnoses REGGIE (generalized anxiety disorder) F41.1 Moderate episode of recurrent major depressive disorder F33.1 Major depression episode severity: moderate ADHD (attention deficit hyperactivity disorder), inattentive type F90.0 Intractable chronic migraine without aura and without status migrainosus G43.719 Intractability: intractable Status migrainosus presence: without status migrainosus Elevated LFTs R79.89 Encounters for administrative purpose Z02.9 Obesity, Class I, BMI 30.0-34.9 (see actual BMI) E66.811 BMI 34.0-34.9,adult Z68.34 Additional Codes REGGIE-7 Assessment Billing - REGGIE-7 Assessment Tool: REGGIE-7 Assessment 94577 ([id number]) PHQ-9 - 46830 - PHQ-9 Billing: Yes ([id number]) Assessment & Plan Assessment & Plan (1) REGGIE (generalized anxiety disorder): Code(s): F41.1 - Generalized anxiety disorder Category: Medical (2) MDD (major depressive disorder), recurrent episode: Code(s): F33.9 - Major depressive disorder, recurrent, unspecified Category: Medical Qualifiers: Major depression episode severity: moderate Qualified Code(s): F33.1 - Major depressive disorder, recurrent, moderate (3) ADHD (attention deficit hyperactivity disorder), inattentive type: Code(s): F90.0 - Attention-deficit hyperactivity disorder, predominantly inattentive type Category: Medical (4) Chronic migraine without aura: Code(s): G43.709 - Chronic migraine without aura, not intractable, without status migrainosus Category: Medical Qualifiers: Intractability: intractable Status migrainosus presence: without status migrainosus Qualified Code(s): G43.719 - Chronic migraine without aura, intractable, without status migrainosus (5) Elevated LFTs: Code(s): R79.89 - Other specified abnormal findings of blood chemistry Category: Medical (6) Encounters for administrative purpose: Code(s): Z02.9 - Encounter for administrative examinations, unspecified Plan: Intermittent FMLA 12/12-06/14/25 incapacity 1/week x 3 days per episode appts 1/week x 1 day per appt (7) Obesity, Class I, BMI 30.0-34.9 (see actual BMI): Code(s): E66.811 - Obesity, class 1 Category: Medical (8) BMI 34.0-34.9,adult: Code(s): Z68.34 - Body mass index [BMI] 34.0-34.9, adult Category: Medical Plan . Orders: Referrals Nurse Navigator Referral F33.9 - Major depressive disorder, recurrent, unspecified, F41.1 - Generalized anxiety disorder, F90.0 - Attention-deficit hyperactivity disorder, predominantly inattentive type Medications: New dextroamphetamine-amphetamine 30 mg (Adderall) 30 mg PO DAILY 30 tabs 0RF alprazolam 0.5 mg PO DAILY PRN 10 tabs 0RF Anxiety Changed From venlafaxine ER 100 mg PO DAILY To venlafaxine ER 75 mg PO DAILY 90 tabs 0RF Patient Instructions: Walk-In Care (Urgent Care): We Make it Easy Walk-in for urgent medical issues such as: ? Seasonal Allergies ? Insect Bites ? Cough ? Diarrhea ? Acute Asthma Attacks ? Back, Knee or Joint Pain ? Ear Infection ? Fever without a Rash ? Headaches ? Nausea ? [place], Rash or Skin Irritation ? Sore Throat ? Sports Physicals ? Vomiting Most insurances are accepted. Patients do not need to be part of the [facility] to seek care at the walk-in clinic. Locations [address] [place] [address] , [place] [address] ? [phone] [facility] Walk-In Care in [place] provides services to ages 18 and over. Open Sunday-Sunday: 8 a.m. to 5 p.m. and Sunday: 9 a.m. to 3 p.m.* *Hours may vary due to staffing availability. To confirm Walk-In Care hours in [place], please call [phone]. [address] [place] [address] ? [phone] [facility] Walk-In Care in [place] provides services to ages 12 and over. Open Sunday-Sunday: 8 a.m. to 5 p.m. Hours may vary due to staffing availability. To confirm Walk-In Care hours in [place], please call [phone]. LABORATORY SERVICES: [facility] Lab ? Primary Location [address] [place] [address] Sunday through Sunday 6:00 AM ? 5:00 PM Sunday 7:00 AM ? 11:00 AM* [phone] The [facility] is centrally located near the front entrance of the [facility] for easy outpatient access. Convenient parking is provided for outpatients. *Hours may vary due to staffing availability. To confirm Laboratory hours for any location, please call [phone]. Offsite Location For your convenience, we offer offsite laboratory draw stations at the following locations: [address], [place] ? [facility] [address], [address], [place] Sunday through Sunday 7:30 AM ? 1:00 PM* [phone] *Hours may vary due to staffing availability. To confirm Laboratory hours for any location, please call [phone]. [place] ? [facility] [address] [facility] [place] Sunday through Sunday 6:00 AM ? 3:30 PM* Sunday 6:30 AM ? 3 PM* [phone] *Hours may vary due to staffing availability. To confirm Laboratory hours for any location, please call [phone] [place] [address] Sunday through Sunday 7:30 AM ? 4:00 PM* [phone] *Hours may vary due to staffing availability. To confirm Laboratory hours for any location, please call [phone] [place] [address] Sunday through 9:00 AM ? 4:00 PM* *Hours may vary due to staffing availability. To confirm Laboratory hours for any location, please call [phone]. Appointments are not necessary. Walk-ins are welcome. Like all the departments throughout the [facility], our Lab undergoes frequent reviews to ensure the quality and accuracy of test results, and our staff takes special pride in its status as a nationally accredited facility. Patient Portal: ONE PATIENT. ONE RECORD. BETTER CARE. [facility] has a fully integrated, cutting- edge mobile electronic health information system that has revolutionized the way we care for our patients and manage our organization. This system improves communication and coordination enabling us to provide safe, higher-quality care, and an overall positive experience for staff and patients. Our first priority, as always, is to deliver the highest quality care possible. The system is running in the background supporting that priority. This portal is for all [facility] services and practices. If you are experiencing any technical difficulties with enrolling or logging into the Patient Portal please complete the [facility] Patient Portal Technical Support Form. [facility] now offers a new secure on-line interactive tool for patients to review their health information ? ?Patient Portal. This interactive web portal will enable patients and their families to take an active role in their care by providing easy, secure access to their health information via the internet. The Patient Portal provides patients with instant access to their health information, including laboratory results, medications, allergies, demographic information, visit history, and more. In addition to managing their own care, parents and health care proxies with authorized consent will appreciate the ability to access the records of those individuals for whom they provide care. Please note: if you wish to gain access (Proxy) to another patient?s portal, you will be required to come to the Medical Records Department in person at [facility]. Both the patient giving proxy access and the proxy will need to provide photo identification and complete the appropriate authorization. The Patient Portal also allows track their appointments online. The [facility] Patient Portal also saves patients time by allowing them to submit updates to their demographic and contact information prior to their visits. Portal email notifications will also alert patients to any new activity on their portal, such as test results and new appointments. In order to initially enroll in the [facility] Patient Portal, you will need to enter some required information including the following: * your [facility] Medical Record number * your personal home email address * name * date of Please note: In order to enroll in the [facility] Patient Portal, we need to have your email address on file in your electronic medical record. ?The email address needs to be specific for one person (yourself) in order for your Portal enrollment to be successful. ?You can update your email address in person with our Registration staff when you are registering for a hospital visit. ?Otherwise, you will need to come to the Health Information Management (Medical Records) Department at [facility]. ?We are open from Sunday ? Sunday from 7:30 a.m. ? 4:30 p.m. ?You will be required to present a photo id. Once you have successfully enrolled in the Patient Portal, you will receive a one-time user id and password for the Portal, sent to your email address. ?This will allow you to log into the Patient Portal within 99 hrs and reset your own logon id and password, and define personal security questions. ?Once your permanent login and password have been set, you can log into the [facility] Patient Portal at any time via the blue button above or from the Portal Logon button on any page of the [facility] website. [facility] encourage all of our patients to enroll in Patient Portal as it presents a valuable opportunity for patients and their families to actively participate in their care and stay healthy Welcome to [facility]. ?We look forward to working with you.
[2024-12-12 12:10] VITALS: BP 98/67; PULSE 81; RESP 12; TEMP 36; O2SAT 99; BMI 34.8
--- OUTSIDE RECORDS SUMMARY | 2024-12-12 13:48 | XMS_ITS | Encounter Summary ---
Author Organization [facility] Address [address] [place] [address] Care Team Providers Care Rn Imcu Name Role Phone Xin Murray APRN Primary Care Provider + Encounter Details Date Type Department Care Team (Late st Contact Info) Description 10/22/2024 Scanned Document [address] [place] [phone] Provider, Generic Social History Tobacco Use Types Packs/Day Years Used Date Smoking Tobacco: Never Assessed Sex and Gender Information Value Date Recorded Sex Assigned at Not on file Gender Identity Not on file Sexual Orientation Not on file documented as of this encounter Plan of Treatment Not on file documented as of this encounter Visit Diagnoses Not on filedocumented in this encounter Care Teams Rn Imcu Relationship Specialty Start Date End Date Xin Murray APRN [address] [place] [phone] PCP - General Family Medicine 10/22/24 documented as of this encounter
--- OUTSIDE RECORDS SUMMARY | 2024-12-12 13:48 | XMS_ITS | Clinical Summary ---
Author Organization [facility] Address [address] [place] [address] Care Team Providers Care Mill Attendant Name Role Phone Braeden Murrayistin Deejay GLORIA Primary Care Provider + Allergies Active Allergy Reactions Criticality Noted Date Comments Budesonide Hives Medium 10/15/2023 Medications Medication Sig Dispensed Refills Start Date End Date Status amphetamine-dextroamph etamine (ADDERALL XR) 30 MG 24 hr capsule Take 30 mg by mouth every morning. 08/07/2024 Active buPROPion (WELLBUTRIN SR) 150 MG 12 hr tablet Take 150 mg by mouth every morning. 08/06/2024 Active levonorgestrel-ethinyl estradiol (Vienva) 0.1-20 MG-MCG per tablet See Instructions, TAKE 1 TABLET BY MOUTH EVERY DAY, # 84 tablet, 1 Refills, Maintenance, 09/18/24 5:20:00 PM EST, [facility], 84, TAKE 1 TABLET BY MOUTH EVERY DAY, 154, cm, 06/03/24 17:43:00 EDT, Height, 90.1, kg, 03/28/23 8:33:00 EDT, Dry Weight 09/18/2024 Active sucralfate (CARAFATE) 1 g tablet 10/20/2024 Active topiramate (TOPAMAX) 100 MG tablet TAKE 1 TABLET BY MOUTH 2 TIMES DAILY FOR 90 DAYS. 09/15/2024 Active venlafaxine 75 MG Tablet SR 24 hr Take 75 mg by mouth 1 time. Active Encounters Date Type Department Care Team Description 10/22/2024 4:30 PM EST Office Visit [facility] [address] [place] [address] Earl Celis MD [place], [place], [place] Viral URI with cough (Primary Dx) 10/22/2024 Scanned Document [facility] [address] [facility] [address] [place] [phone] Provider, Generic 10/22/2024 Travel 10/22/2024 Scanned Document [facility] [address] [facility] [address] [place] [phone] Provider, Generic from Last 3 Months Social History Tobacco Use Types Packs/Day Years Used Date Smoking Tobacco: Never Assessed Sex and Gender Information Value Date Recorded Sex Assigned at Not on file Gender Identity Not on file Sexual Orientation Not on file Last Filed Vital Signs Vital Sign Reading Time Taken Comments Blood Pressure 126/81 10/22/2024 4:26 PM EST Pulse 88 10/22/2024 4:26 PM EST Temperature 37.4 ??C (99.4 ??F) 10/22/2024 4:26 PM ES T Respiratory Rate 16 10/22/2024 4:26 PM EST Oxygen Saturation 100% 10/22/2024 4:26 PM EST Inhaled Oxygen Concentration - - Weight 86.2 kg (190 lb) 10/22/2024 4:26 PM EST Height 154.9 cm (5' 1 ) 10/22/2024 4:26 PM EST Body Mass Index 35.9 10/22/2024 4:26 PM EST Plan of Treatment Health Maintenance Due Date Last Done Comments Hepatitis C Virus Screening 2000 HIV Screening 2013 HPV Vaccines (1 - 3-dose series) 2015 DTaP/Tdap/Td Vaccines (1 - Tdap) 2019 Hepatitis B Vaccines (1 of 3 - 19+ 3-dose series) 2019 Pap Smear (Ages 21-65) 2021 Influenza Vaccine 05/08/2024 COVID-19 Vaccine (2 - 2023-2 5 season) 2024 10/05/2021 Pneumococcal Vaccine: Pediat liana (0-5 Years) and At-Risk Patients (6 to 49 Years) Aged Out No longer eligible b ased on patient's age to complete this topic Procedures Procedure Name Priority Date/Time Associated Diagnosis Comments POCT RAPID INFLUENZA Routine 10/22/2024 4:46 PM EST Viral URI with cough POCT RAPID COVID-19 AG (FDA EUA) Routine 10/22/2024 4:37 PM EST Viral URI with cough from Last 3 Months Results * POCT Rapid Influenza (10/22/2024 4:46 PM EST) Inflenza A Ag Negative Negative Influenza B Ag Negative Negative Nasopharyngeal 10/22/2024 4: 46 PM EST [facility] POINT OF CARE TEST O RDERABLES * POCT Rapid COVID-19 Antigen (FDA EUA) (10/22/2024 4:37 PM EST) COVID-19 Rapid Antigen, POC (FDA EUA) Negative Result Comments: A Positive Result does not rule out bacterial infection or co-infection with other viruses. Clinical correlation advised. A Negative Result in symptomatic patients should be considered presumptive and needs confirmation by PCR. Kit Lot Number [id number] Print Graphic Designer Pass Pass Swab, Nasal Specimen from nose / Unknown 10/22/2024 4:37 PM EST [facility] POINT OF CARE TEST O RDERABLES from Last 3 Months Care Teams Mill Attendant Relationship Specialty Start Date End Date Xin Murray APRN [address] [place] [phone] PCP - General Family Medicine 10/22/24
--- OUTSIDE RECORDS SUMMARY | 2024-12-12 13:48 | XMS_ITS | Encounter Summary ---
Author Organization [facility] Address [address] [place] [phone] Care Team Providers Care Math Instructor Name Role Phone Xin Murray NP Primary Care Provider [phone] Reason for Visit * Reason Onset Date Comments Other 12/08/2024 Medical records Encounter Details Date Type Department Care Team ([facility] Contact Info) Description 12/08/2024 Telephone [facility] at [address] [place] [address] [place] [phone] Orin Ahn MD [address] [place] [phone] Other (Medical records) Social History Tobacco Use Types Packs/Day Years Used Date Smoking Tobacco: Never Assessed PHQ-2 Answer Date Recorded PHQ-2 Total Score 0 12/10/2024 Comments Unknown Sex and Gender Information Value Date Recorded Sex Assigned at Not on file Legal Sex Female 1:32 PM EST Gender Identity Not on file Sexual Orientation Not on file documented as of this encounter Miscellaneous Notes * Telephone Encounter - Christina Escobar - 12/09/2024 12:02 PM EST Copied from [facility] #[id number]. Topic: General Inquiry - General Inquiry >> Dec 09, 2024 12:00 PM Christina Phillip wrote: I called Xiomara MARTINEZ [phone] left detailed message regarding fax request sent yesterday. Pt is scheduled for tomorrow with Dr. Ahn and will need records prior to visit or we'll need to r/s pt's appt. Pod:Bariatrics/Colorectal/Digestive (BCD) * Telephone Encounter - Christina Escobar - 12/08/2024 4:51 PM EST Copied from [facility] #[id number]. Topic: General Inquiry - General Inquiry >> Dec 08, 2024 4:50 PM Christina Phillip wrote: Per IB message from Jimy Covington Anamika Margaret Chudhury, MD [facility] Digestive HealthScheduling; Dolores Grant This patient is a second opinion appointment. Please obtain imaging, endoscopic reports, labs, recent OV notes from MICHELLE Bobo at [facility] [place]. Make sure that this info is in the chart before herappt on Sunday. If we cannot get this information before Sunday, the appointment should be rescheduled as I cannot formulate a plan without access to her extensive prior work-up. I faxed request to [facility] attn Viri Bobo, AUTOMATION TESTER fax [phone] direct tel#[phone] for the above requested records. Pod:Bariatrics/Colorectal/Digestive (BCD) documented in this encounter Plan of Treatment Upcoming Encounters Date Type Department Care Team ([facility] st Contact Info) Description 03/24/2025 9:30 AM EDT Office Visit [facility] at [address] [place] [phone] Orin Ahn MD [address] [place] [phone] documented as of this encounter Visit Diagnoses Not on filedocumented in this encounter Care Teams Math Instructor Relationship Specialty Start Date End Date Xin Murray NP [address] [place] [phone] PCP - General 11/17/24 documented as of this encounter
--- OUTSIDE RECORDS SUMMARY | 2024-12-12 13:48 | XMS_ITS | Clinical Summary ---
Author Organization [facility] Address [address] [place] [address] Phone Care Team Providers Care Speech Pathology Teacher Name Role Phone Marcia Grey MD Primary Care Provider [phone] Allergies No known active allergies Medications topiramate (TOPAMAX) 100 mg tabletIndication s:Other obesity due to excess calories TAKE 1 TABLET BY MOUTH 2 TIMES DAILY FOR 90 DAYS. 180 tablet 09/15/2024 Active Active Problems No known active problems Encounters Date Type Department Care Team Description 09/12/2024 9:50 PM EST - 09/13/2024 2:31 AM EST Emergency [facility] Emergency [address] [place] [phone] Brijesh Hua MD Contusion of left lower extremity, initial encounter (Primary Dx); Traumatic ecchymosis of left lower leg, initial encounter Discharge Disposition: Home or Self Care from Last 3 Months Surgical History Surgery Date Site/Laterality Comments CHOLECYSTECTOMY PROCEDURE:CHOLECYSTECTOMY Medical History Medical History Date Comments Asthma DX:Asthma Social History Tobacco Use Types Packs/Day Years Used Date Smoking Tobacco: Never Smokeless Tobacco: Never Alcohol Use Standard Drinks/Week Comments Never 0 (1 standard drink = 0.6 oz pur e alcohol) Comments Unknown Sex and Gender Information Value Date Recorded Sex Assigned at Female 08/10/2024 2:11 PM EST Legal Sex Female 3:17 PM EST Gender Identity Not on file Sexual Orientation Not on file Obstetrics History Last Filed Vital Signs Vital Sign Reading Time Taken Comments Blood Pressure 114/81 09/12/2024 9:47 PM EST Pulse 94 09/12/2024 9:47 PM EST Temperature 37.2 ??C (99 ??F) 09/12/2024 9:47 PM EST Respiratory Rate 17 09/12/2024 9:47 PM EST Oxygen Saturation 98% 09/12/2024 9:47 PM EST Inhaled Oxygen Concentration - - Weight 88.5 kg (195 lb) 09/12/2024 9:47 PM EST Height 154.9 cm (5' 1 ) 09/12/2024 9:47 PM EST Body Mass Index 36.84 09/12/2024 9:47 PM EST Plan of Treatment Health Maintenance Due Date Last Done Comments Gonorrhea/Chlamydia Screening 2000 HPV Vaccines (1 - 3-dose series) 2015 DTaP,Tdap,and Td Vaccines (1 - Tdap) 2019 Hepatitis B Vaccines (1 of 3 - 19+ 3-dose series) 2019 Pneumococcal Vaccine: Pediat rics (0 to 5 Years) and At-Risk Patients (6 to 64 Years) (1 of 2 - PCV) 2019 Cervical Cancer Screening: P ap Smear 2021 Cholesterol Screening (Lipid Panel) 11/06/2023 Depression Screening 11/06/2023 HIV Screening 11/06/2023 Hepatitis C Screening 11/06/2023 Social Influencers of Health Screening 11/06/2023 COVID-19 Vaccine (2 - 2023-2 5 season) 2024 10/05/2021 Influenza Vaccine (#1) 2024 HIB Vaccines Aged Out No longer eligi ble based on patient's age to complete this topic Hepatitis A Vaccines Aged Out No long er eligible based on patient's age to complete this topic IPV Vaccines Aged Out No longer eligi ble based on patient's age to complete this topic MMR Vaccines Aged Out No longer eligi ble based on patient's age to complete this topic Meningococcal ACWY Vaccine Aged Out N o longer eligible based on patient's age to complete this topic Meningococcal B Vacine Aged Out No lo nger eligible based on patient's age to complete this topic RSV Immunization Patients Un bianca 20 months Aged Out No longer eligible b ased on patient's age to complete this topic Varicella Vaccines Aged Out No longer eligible based on patient's age to complete this topic Procedures Procedure Name Priority Date/Time Associated Diagnosis Comments XR TIBIA FIBULA 2 VIEWS LEFT STAT 09/13/2024 1:41 AM EST from Last 3 Months Results * XR Tibia Fibula 2 Views Left (09/13/2024 1:41 AM EST) Anatomical Region Laterality Modality Lower Extremities, Lower Leg Left Rad iographic Imaging 09/13/2024 2:04 AM EST Impressions 09/13/2024 2:04 AM EST 1. No acute fracture or dislocation injury identified at the left tibia or left fibula. This document has been electronically signed by: Huey Galindo MD on 09/13/2024 02:04:00 Narrative 09/13/2024 2:04 AM EST 2 view left tibia-fibula Comparison: None Findings No acute fractures or dislocations. Normal bony alignment. Small posterior calcaneal enthesophyte at the site of the Achilles tendon insertion. Procedure Note Huey Galindo MD - 09/13/2024 2 view left tibia-fibula Comparison: None Findings No acute fractures or dislocations. Normal bony alignment. Smallposterior calcaneal enthesophyte at the site of the Achilles tendon insertion. IMPRESSION: 1. No acute fracture or dislocation injury identified at the left tibiaor left fibula. This document has been electronically signed by: Huey Galindo MD on 09/13/2024 02:04:00 Brijesh Hua MD IMG XR PROCEDURES Final Result from Last 3 Months Insurance * Guarantor: Melody Grover Account Type Relation to Patient Date of Phone Billing Address Personal/Family Self 2000 [address] [place] [address] [facility] Care Teams Speech Pathology Teacher Relationship Specialty Start Date End Date Marcia Grey MD [address] [place] [phone] PCP - General 12/28/22
--- OUTSIDE RECORDS SUMMARY | 2024-12-12 13:48 | XMS_ITS | Encounter Summary ---
Author Organization [facility] Address [address] [place] [address] Care Team Providers Care Merchandising Director Name Role Phone Xin Murray APRN Primary Care Provider + Encounter Details Date Type Department Care Team (Late st Contact Info) Description 10/22/2024 Scanned Document [address] [place] [phone] Provider, Generic Social History Tobacco Use Types [...] on filedocumented in this encounter Care Teams Merchandising Director Relationship Specialty Start Date End Date Xin Murray APRN [address] [place] [phone] PCP - General Family Medicine 10/22/24 documented as of this encounter
--- OUTSIDE RECORDS SUMMARY | 2024-12-12 13:48 | XMS_ITS | Encounter Summary ---
Author Organization [facility] Address [address] [place] [id number] Care Team Providers Care Director [employer] Name Role Phone Xin Murray NP Primary Care Provider [id number] Reason for Referral * Consultation (Urgent) - New Request Specialty Diagnoses / Procedures Referred By Contac t Referred To Contact Gastroenterology Diagnoses Transaminitis Steven Mooney MD [address] [place] [address] [id number] [place] [address] Phone: tel: fax: [facility] [address] [facility] [address] [place] [address] Phone: tel: fax: Referral ID Status Reason Start Date Expiration Date Visits Requested Visits Authorized [id number] New Request Specialty Services Required 11/17/2024 11/17/2025 1 1 Reason for Visit * Reason Comments Abdominal Pain Intermittent RUQ abd pain x 1 year with N/V with intermittent diarrhea and constipation. Pt seen by GI outpatient and tested of h.pylori, colonoscopy, all came back negative. Pt scheduled to have another test outpatient. Pt seen at multiple hospitals in [place] for similar symptoms. Pt recommended by a GI MD Delaney to come to [place]. Poor Po intake. Hx pf gallbladder removal at 15 y.o. Encounter Details Date Type Department Care Team ([facility] Contact Info) Description 11/17/2024 2:47 PM EST - 11/17/2024 8:48 PM EST Emergency [facility] Emergency Department [address] [place] [phone] John Styles MD [address] [place] [phone] Transaminitis (Primary Dx); Nonspecific mesenteric lymphadenitis; Abdominal pain, vomiting, and diarrhea Discharge Disposition: Home or Self Care Social History Tobacco Use Types Packs/Day Years Used Date Smoking Tobacco: Never Assessed Comments Unknown Sex and Gender Information Value Date Recorded Sex Assigned at Not on file Legal Sex Female 1:32 PM EST Gender Identity Not on file Sexual Orientation Not on file documented as of this encounter Last Filed Vital Signs Vital Sign Reading Time Taken Comments Blood Pressure 109/72 11/17/2024 8:31 PM EST Pulse 75 11/17/2024 8:31 PM EST Temperature 37.2 ??C (98.9 ??F) 11/17/2024 8:31 PM ES T Respiratory Rate 16 11/17/2024 8:31 PM EST Oxygen Saturation 98% 11/17/2024 8:31 PM EST Inhaled Oxygen Concentration - - Weight - - Height - - Body Mass Index - - documented in this encounter Discharge Instructions * Attachments The following attachments cannot be sent through Care Everywhere. * Mesenteric Lymphadenitis Discharge Instructions (Maldivian) * Severe Abdominal Pain (Maldivian) documented in this encounter Medications at Time of Discharge famotidine (PEPCID) 20 mg tablet Take 1 tablet (20 mg total) by mouth 2 (two) times daily. 30 tablet 11/17/2024 ondansetron (ZOFRAN) 4 mg tablet Take 2 tablets (8 mg total) by mouth every 8 (eight) hours as needed for nausea. 12 tablet 11/17/2024 documented as of this encounter ED Notes * Feng Donnelly RN - 11/17/2024 8:47 PM EST Pt is discharged home AAOx4, VSS, NAD, AVS printed and given to pt, Pt ambulatory and left with mother. * Feng Donnelly RN - 11/17/2024 7:26 PM EST 7:26 PM Report received from TERESA Zhang. Continuation of care. Chief Complaint Patient presents with Abdominal Pain Intermittent RUQ abd pain x 1 year with N/V with intermittent diarrhea and constipation. Pt seen by outpatient and tested of h.pylori, colonoscopy, all came back negative. Pt scheduled to have another test outpatient. Pt seen at multiple hospitals in [place] for similar symptoms. Pt recommended by a GI MD Delaney to come to [place]. Poor Po intake. Hx pf gallbladder removal at 15 y.o. Encounter Diagnoses Code Name Primary? R74.01 Transaminitis Yes I88.0 Nonspecific mesenteric lymphadenitis R10.9, R11.10, R19.7 Abdominal pain, vomiting, and diarrhea * John Styles MD - 11/17/2024 3:07 PM EST Chief Complaint Patient presents with Abdominal Pain Intermittent RUQ abd pain x 1 year with N/V with intermittent diarrhea and constipation. Pt seen by outpatient and tested of h.pylori, colonoscopy, all came back negative. Pt scheduled to have another test outpatient. Pt seen at multiple hospitals in [place] for similar symptoms. Pt recommended by a GI MD Delaney to come to [place]. Poor Po intake. Hx pf gallbladder removal at 15 y.o. History of Present Illness The patient, with a history of cholecystectomy, presents with recurrent abdominal pain, vomiting, and diarrhea. The symptoms have been increasing in frequency and severity, to the point where she is unable to keep anything down. She has been under the care of a lighter in [place], who has performed a colonoscopy and suggested further imaging studies, such as a CT scan or ultrasound. However, these have not yet been arranged. The lighter has raised the possibility of Crohn's disease as a diagnosis, but this has not been confirmed. The patient also reports new onset chest pain, which has not been previously experienced. 24F G0 with PMH migraines, ADHD, anxiety, cholecystectomy (age 15), GERD who presents to the ED with two years of intermittent diffuse abdominal pain, nausea, vomiting, diarrhea. States that episodeshad been mostly present every few months, now becoming more frequent 2-3x monthly. Also notes BR blood in the stool with nearly every BM, though this has been present many years prior to her presenting concern. Denies known triggers, tends to avoid eating to prevent episodes but recently has began having episodes regardless. Last night, patient could not keep down water, which prompted her visit to the ED today. Currently, patient continues to report right-sided cramping abdominal pain, which radiates around to her back. Also notes epigastric pain that radiates towards her chest. Today patient also reports new 8/10 chest pressure like something sitting on her chest . Denies SOB, RODRÍGUEZ/dizziness, vaginal bleeding, hematemesis. Per patient, follows with GI Makayla [facility]o at [facility], H.pylori, colonoscopy neg. CRP elevated, recommended CT with contrast. Patient's mother present at bedside and contributes to history. MDM: 24F with chronic epigastric/right abdominal pain n/v/d, as well as chest pressure likely due to costochondritis. CXR normal. CTAP with mesentery lymph node. Lipase to evaluate for pancreatitis. Labs s/f transaminitis, which is of unsure significance for acute etiology given patient is s/p cholecystectomy. Discussed with GI, recommends outpatient follow up. Will po challenge and re-evaluate. An acute or life threatening problem was considered during this evaluation A decision regarding hospitalization was made during this visit Patient does not require admission or further ED Observation at this time External data reviewed: Labs Care limited by SDOH: Leveler Helper Access. Care limited due to: No primary care doctor Directly spoke with: Machine Adjuster (GI-urgent follow-up) Physical Exam ED Triage Vitals [11/17/24 1333] BP: 109/77 Pulse: (!) 98 Pulse from O2 sat: n/a Resp: 16 Temp: 98.2 ??F (36.8 ??C) Temp src: Oral SpO2: 97 % BP 104/71 Pulse 71 Temp 98 ??F (36.7 ??C) (Oral) Resp 17 SpO2 100% Physical Exam Constitutional: General: She is not in acute distress. Appearance: She is well-developed. She is not ill-appearing. HENT: Head: Normocephalic and atraumatic. Mouth/Throat: Mouth: Mucous membranes are moist. Pharynx: Oropharynx is clear. Eyes: Extraocular Movements: Extraocular movements intact. Cardiovascular: Rate and Rhythm: Normal rate and regular rhythm. Heart sounds: No murmur heard. Pulmonary: Effort: Pulmonary effort is normal. No respiratory distress. Breath sounds: Normal breath sounds. No wheezing, rhonchi or rales. Chest: Chest wall: Tenderness (sternal ttp) present. Abdominal: General: Abdomen is flat. Bowel sounds are normal. There is no distension. Palpations: Abdomen is soft. There is no mass. Tenderness: There is abdominal tenderness in the right upper quadrant, epigastric area and periumbilical area. There is no right CVA tenderness, left CVA tenderness, guarding or rebound. Hernia: No hernia is present. Skin: General: Skin is warm and dry. Capillary Refill: Capillary refill takes less than 2 seconds. Neurological: General: No focal deficit present. Mental Status: She is alert. Psychiatric: Mood and Affect: Mood normal. Behavior: Behavior normal. Physical Exam CHEST: Lungs clear to auscultation, regular rate and rhythm. ABDOMEN: Tenderness in epigastric area and right upper quadrant. Procedures Attestation/Critical Care Clinical Impressions as of 11/17/241911 Transaminitis Nonspecific mesenteric lymphadenitis Abdominal pain, vomiting, and diarrhea ED Disposition No disposition selected since last refresh of note. Attending Supervised: Resident I saw and examined the patient. I agree with the findings and plan of care as documented in the resident's note except as noted below. Additional acute and/or chronic problems addressed: Concern for intractable vomiting in the setting of chronic abdominal pain, vomiting, diarrhea Plan for labs including CBC, BMP, LFTs, lipase, CT abdomen pelvis Assessment & Plan Recurrent Abdominal Pain, Vomiting, Diarrhea Frequent episodes of abdominal pain, vomiting, and diarrhea. History of gallbladder removal. Possible diagnosis of Crohn's disease under consideration by GI specialist in [place]. Patient is not able to keep anything down. -Order CT scan to further evaluate the cause of symptoms. -Order blood work and urine test to rule out other causes. -Consider prescribing Ondansetron for nausea control. Chest Pain New onset of chest pain reported. No further details provided in the conversation. -Consider chest x-ray to evaluate the cause of chest pain. Follow-up -Review results of CT scan, blood work, and urine test. -Discuss next steps based on test results. -Consider referral to a lighter if necessary. Electronically signed: Linda Rodriguez MD ([id number]) Obstetrics and Gynecology Best contact via [facility] 11/17/24 7:12 PM I provided a concise overview of the ambient note generation solution. Melody Grover or their legally authorized hardware supplies sales representative verbally consented to a temporary audio recording of their visit to assist with completing the visit documentation using an AI-powered solution. This note was reviewed for accuracy by John Styles MD who performed the clinical service. John Goins MD 11/17/24 191 documented in this encounter Plan of Treatment Upcoming Encounters Date Type Department Care Team (Late st Contact Info) Description 03/24/2025 9:30 AM EDT Office Visit [facility] [address] [place] [id number] Orin Ahn MD [address] [place] [phone] Scheduled Referrals Name Type Priority Associated Diagnoses Order Schedule Ambulatory referral to Gastroenterology Outpatient Referral Routine Transaminitis Ordered: 11/17/2024 documented as of this encounter Procedures Procedure Name Priority Date/Time Associated Diagnosis Comments CT ABDOMEN PELVIS W IV CONTRAST STAT 11/17/2024 5:28 PM EST XR CHEST PA AND LATERAL Within 1 hour (STAT) 11/17/2024 5:23 PM EST COMPREHENSIVE METABOLIC PANEL STAT 11/17/2024 5:07 PM EST CBC WITH AUTO DIFFERENTIAL STAT 11/17/2024 5:07 PM EST CBC AND DIFFERENTIAL STAT 11/17/2024 5:07 PM EST LIPASE STAT 11/17/2024 5:07 PM EST COMPREHENSIVE METABOLIC PANEL STAT 11/17/2024 5:07 PM EST POCT URINE STAT 11/17/2024 4:59 PM EST documented in this encounter Results * CT Abdomen Pelvis with IV Contrast without oral (BMI>25) (11/17/2024 5:28 PM EST) Anatomical Region Laterality Modality Abdomen, Pelvis, Ortho Pelvis, Abdomen and Pelvi s Computed Tomography 11/17/2024 5:37 PM EST Impressions 11/17/2024 6:10 PM EST No acute findings. Subcentimeter mesenteric lymph nodes are nonspecific. [facility] Classification: Routine. Report initiated by: ??José Antonio Burns MD Reported and signed by: Anali Da Silva MD [facility] Narrative 11/17/2024 6:[address] ABDOMEN PELVIS W IV CONTRAST HISTORY: 2 years of chronic abdominal pain, presents with acute worsening. Right-sided abdominal pain radiating to back. COMPARISON: No similar prior imaging is available for comparison at this time. TECHNIQUE: CT images of the abdomen and pelvis were obtained from the diaphragms to the pubic symphysis after the administration of intravenous contrast. IV CONTRAST: ??80 ML IOHEXOL (OMNIPAQUE) 350 MG IODINE/ML INJECTION FINDINGS: LUNG BASES: Unremarkable. LIVER: Unremarkable. GALLBLADDER: Surgically absent. SPLEEN: Unremarkable. PANCREAS: Unremarkable. ADRENALS: Unremarkable. KIDNEYS: Unremarkable. BOWEL: No evidence of bowel obstruction. APPENDIX: Unremarkable. (Image 594 series 3) PERITONEUM: Unremarkable. LYMPH NODES: Prominent subcentimeter mesenteric lymph nodes.. VESSELS: Unremarkable. URINARY BLADDER: Decompressed and unremarkable. PELVIS: Unremarkable. BONES & SOFT TISSUE: No aggressive osseous lesion. Procedure Note Anali Da Silva MD - 11/17/2024 CT ABDOMEN PELVIS W IV CONTRAST HISTORY: 2 years of chronic abdominal pain, presents with acute worsening.Right- sided abdominal pain radiating to back. COMPARISON: No similar prior imaging is available for comparison at thistime. TECHNIQUE: CT images of the abdomen and pelvis were obtained from thediaphragms to the pubic symphysis after the administration of intravenouscontrast. IV CONTRAST: 80 ML IOHEXOL (OMNIPAQUE) 350 MG IODINE/ML INJECTION FINDINGS: LUNG BASES: Unremarkable. LIVER: Unremarkable. GALLBLADDER: Surgically absent. SPLEEN: Unremarkable. PANCREAS: Unremarkable. ADRENALS: Unremarkable. KIDNEYS: Unremarkable. BOWEL: No evidence of bowel obstruction. APPENDIX: Unremarkable. (Image 594 series 3) PERITONEUM: Unremarkable. LYMPH NODES: Prominent subcentimeter mesenteric lymph nodes.. VESSELS: Unremarkable. URINARY BLADDER: Decompressed and unremarkable. PELVIS: Unremarkable. BONES & SOFT TISSUE: No aggressive osseous lesion. IMPRESSION: No acute findings. Subcentimeter mesenteric lymph nodes are nonspecific. [facility] Classification: Routine. Report initiated by: José Antonio Burns MD Reported and signed by: Anali Da Silva MD [facility] John Styles MD IMG CT ORDERABLES Final Result * CXR (11/17/2024 5:23 PM EST) Anatomical Region Laterality Modality Chest Digital Radiogra phy 11/17/2024 5:24 PM EST Impressions 11/17/2024 5:26 PM EST No acute cardiothoracic abnormality. [facility] Classification: Routine. Report initiated by: ??Hanny Sanford MD, MS Reported and signed by: Anali Da Silva MD [facility] Narrative 11/17/2024 5:26 PM EST XR CHEST PA AND LATERAL INDICATION: chest pain COMPARISON: NONE FINDINGS: ?? The cardiomediastinal silhouette is within normal limits. No focal consolidation, pulmonary edema, pneumothorax, or pleural effusion. There is no acute displaced osseous injury. Right upper quadrant surgical clips. Procedure Note Anali Da iSlva MD - 11/17/2024 XR CHEST PA AND LATERAL INDICATION: chest pain COMPARISON: NONE FINDINGS: The cardiomediastinal silhouette is within normal limits. No focal consolidation, pulmonary edema, pneumothorax, or pleuraleffusion. There is no acute displaced osseous injury. Right upper quadrant surgical clips. IMPRESSION: No acute cardiothoracic abnormality. [facility] Classification: Routine. Report initiated by: Hanny Sanford MD, MS Reported and signed by: Anali Da Silva MD [facility] John Styles MD [facility] ORDERABLES Final Result * (ABNORMAL) Comprehensive metabolic panel (11/17/2024 5:07 PM EST) Sodium 141 136 - 144 mmol/L 11/17/2024 6:13 PM [facility] Potassium 3.6 3.3 - 5.3 mmol/L 11/17/2024 6:13 PM [facility] Chloride 107 98 - 107 mmol/L 11/17/2024 6:13 PM [facility] CO2 20 20 - 30 mmol/L 11/17/2024 6:13 PM [facility] Anion Gap 14 7 - 17 11/17/2024 6:13 PM [facility] Glucose 83 70 - 100 mg/dL 11/17/2024 6:13 PM [facility] BUN 9 6 - 20 mg/dL 11/17/2024 6:13 PM [facility] Creatinine 0.99 0.40 - 1.30 mg/dL 11/17/2024 6:13 PM [facility] Calcium 8.9 8.8 - 10.2 mg/dL 11/17/2024 6:13 PM [facility] BUN/Creatinine Ratio 9.1 8.0 - 23.0 11/17/2024 6:13 PM [facility] Total Protein 7.3 5.9 - 8.3 g/dL 025 6:13 PM [facility] Comment:As of 2024, th e reference interval for Total Protein has been changed from (6.6 to 8.7 g/dL) to (5.9 to 8.3 g/dL). Albumin 4.2 3.6 - 5.1 g/dL 11/17/2024 6:13 PM [facility] Comment:As of 2024, th e reference interval for Albumin has been changed from (3.6 to 4.9 g/dL) to (3.6 to 5.1 g/dL). Total Bilirubin 0.6 <=1.2 mg/dL 11/17/19 6:13 PM [facility] Alkaline Phosphatase 133(H) 9 - 122 U/L 11/17/2024 6:13 PM [facility] Alanine Aminotransferase (ALT) 113(H) 10 - 35 U/L 11/17/2024 6:13 PM [facility] Comment:Calcium dobesilate c an cause artificially low ALT results at therapeutic concentrations Aspartate Aminotransferase (AST) 76(H) 10 - 35 U/L 11/17/2024 6:13 PM [facility] Globulin 3.1 2.0 - 3.9 g/dL 11/17/2024 6:13 PM [facility] Comment:As of 2024, e reference interval for Globulin has been changed from (2.3 to 3.5 g/dL) to (2.0 to 3.9 g/dL). A/G Ratio 1.4 1.0 - 2.2 11/17/2024 6:13 PM [facility] AST/ALT Ratio 0.7 Reference Range Not Established 11/17/2024 6:13 PM [facility] eGFR (Creatinine) >60 >=60 mL/min/1.73m2 11/17/2024 6:13 PM [facility] Comment: [facility] utilizes CKD-EPI Creatinine 2020 to report eGFR. Values < 60 mL/min/1.73 m2 may indicate CKD if present for more than three months AND creatinine is at steady state. The eGFR provides a rough estimate of kidney function. For further guidance, please refer to the CKD: Adult Leveler Helper Signature pathway. Creatinine Delta 11/17/19 6:13 PM [facility] Comment:No previous creatini ne <5.00 mg/dL is available within the previous 12 months to calculate a delta creatinine. Blood Venipuncture / Unknown 11/17/2024 5:07 PM EST 11/17/2024 5:23 PM EST us oJhn Styles MD LAB BLOOD ORDERABLES Fi nal Result [facility] MEDICINE [address] [place] [address] * (ABNORMAL) CBC auto differential (11/17/2024 5:07 PM EST) WBC 7.4 4.0 - 11.0 x1000/??L 11/17/2024 5:32 PM [facility] RBC 4.79 4.00 - 6.00 M/??L 11/17/2024 5:32 PM [facility] Hemoglobin 12.8 11.7 - 15.5 g/dL 11/17/2024 5:32 PM [facility] Hematocrit 40.10 35.00 - 45.00 % 11/17/2024 5:32 PM [facility] MCV 83.7 80.0 - 100.0 fL 11/17/2024 5:32 PM [facility] MCH 26.7(L) 27.0 - 33.0 pg 11/17/2024 5:32 PM [facility] MCHC 31.9 31.0 - 36.0 g/dL 11/17/2024 5:32 PM [facility] RDW-CV 13.7 11.0 - 15.0 % 11/17/2024 5:32 PM [facility] Platelets 259 150 - 420 x1000/??L 11/17/2024 5:32 PM [facility] MPV 10.5 8.0 - 12.0 fL 11/17/2024 5:32 PM [facility] Neutrophils 36.8(L) 39.0 - 72.0 % 11/17/2024 5:32 PM [facility] Lymphocytes 44.2 17.0 - 50.0 % 11/17/2024 5:32 PM [facility] Monocytes 13.8(H) 4.0 - 12.0 % 11/17/2024 5:32 PM [facility] Eosinophils 4.2 0.0 - 5.0 % 11/17/2024 5:32 PM [facility] Basophil 0.5 0.0 - 1.4 % 11/17/2024 5:32 PM [facility] Immature Granulocytes 0.5 0.0 - 1.0 % 11/17/2024 5:32 PM [facility] nRBC 0.0 0.0 - 1.0 % 11/17/2024 5:32 PM [facility] Absolute Lymphocyte Count 3.27 0.60 - 3.70 x 1000/??L 11/17/2024 5:32 PM [facility] Monocyte Absolute Count 1.02(H) 0.00 - 1.00 x 1000/??L 11/17/2024 5:32 PM [facility] Eosinophil Absolute Count 0.31 0.00 - 1.00 x 1000/??L 11/17/2024 5:32 PM [facility] Basophil Absolute Count 0.04 0.00 - 1.00 x 1000/??L 11/17/2024 5:32 PM [facility] Absolute Immature Granulocyte Count 0.04 0.00 - 0.30 x 1000/??L 11/17/2024 5:32 PM [facility] Absolute nRBC 0.00 0.00 - 1.00 x 1000/??L 11/17/2024 5:32 PM [facility] ANC (Abs Neutrophil Count) 2.71 2.00 - 7.60 x 1000/??L 11/17/2024 5:32 PM [facility] Blood Venipuncture / Unknown 11/17/2024 5:07 PM EST 11/17/2024 5:23 PM EST us John Styles MD LAB BLOOD ORDERABLES Fi nal Result [facility] OF LAB[facility]ATORY MEDICINE [address] [place] [address] * Lipase (11/17/2024 5:07 PM EST) Lipase 26 11 - 55 U/L 11/17/2024 5:57 PM EST [facility] Blood Venipuncture / Unknown 11/17/2024 5:07 PM EST 11/17/2024 5:23 PM EST John Styles MD LAB BLOOD ORDERABLES Fi nal Result [facility] LAB[facility]ATORY MEDICINE [address] [place] [address] * POCT urine (11/17/2024 4:59 PM EST) Preg Test, Ur, POC Negative Negative [facility] Line in Control Window? (+ Control) Yes [facility] Background Clear? (- Control) Yes [facility] Kit Lot Number [id number] [facility] Expiration Date 03/04/2026 [facility] Urine URINE SPECIMEN / Unknown 11/17/2024 4:59 PM EST Result [facility] John Styles MD POINT OF CARE TEST ORDE RABFRANCK Final Result Performing Organization Address [facility] Co de Phone Number [facility] documented in this encounter Visit Diagnoses Diagnosis Transaminitis- Primary Nonspecific elevation of levels of transaminase or lactic acid dehydrogenase (LDH) Nonspecific mesenteric lymphadenitis Abdominal pain, vomiting, and diarrhea documented in this encounter Administered Medications Inactive Administered Medications - up to 3 most recent administrations Medication Order MAR Action Action Date Dose Rate Site famotidine (PEPCID) tablet 20 mg 20 mg, Oral, ONCE, On Sun11/17/24 at 1600, For 1 dose, Common Side Effects: Dizziness, headache, stomach upset, confusion., Pharmacist will implement [facility] Renal Dose Adjustment Protocol unless otherwise specified: Implement Protocol Given 11/17/2024 5:01 PM EST 20 mg iohexoL (OMNIPAQUE) 350 mg iodine/mL injection 80 mL 80 mL, Intravenous, IMG ONCE PRN, other, Starting on Sun11/17/24 at 1729, For 1 dose, Vesicant agents may cause severe tissue damage, including necrosis, if they extravasate into tissue; Common Side Effects: Headache, nausea, allergic reaction. Given 11/17/2024 5:29 PM EST 80 mLs ondansetron (ZOFRAN-ODT) disintegrating tablet 4 mg 4 mg, Translingual, ONCE, On Sun11/17/24 at 1600, For 1 dose, Common Side Effects: Lightheaded, stomach upset, headache. Given 11/17/2024 5:01 PM EST 4 mg Oral/Enteral Rehydration Fluids (Electrolyte Drink/Water) 960 mL 960 mL, Oral, Every 4 Hours While Awake, First dose on Sun11/17/24 at 2200, Consider sugar-free products for diabetic patients. Consider electrolyte drink for patients with low serum electrolytes. For flowsheet documentation, document actual volume consumed, regardless of the ordered volume (goal volume) 480 mL = 16 fluid ounces = 2 cups 960 mL = 32 fluid ounces = 4 cups Electrolyte Drink = gatorade or pedialyte or equivalent Approximate target time if ordered as a one time bolus - finish 480 mL (2 Cups) over 1 hour and 30 minutes - finish 960 mL (4 Cups) over 3 hours, Fluid Type: Water, Electrolyte Drink sodium chloride 0.9% large volume syringe for autoinjector 20 mL 20 mL, Intravenous, IMG ONCE PRN, other, Imaging, Starting on Sun11/17/24 at 1729, For 1 dose Given 11/17/2024 5:29 PM EST 20 mLs documented in this encounter Active and Recently Administered Medications Times are shown in EST. Scheduled Medication Order 11/15/2024 11/16/2024 11/17/2024 famotidine (PEPCID) tablet 20 mg (COMPLETED) 20 mg, Oral, ONCE, On Sun11/17/24 at 1600, For 1 dose, Common Side Effects: Dizziness, headache, stomach upset, confusion., Pharmacist will implement [facility] Renal Dose Adjustment Protocol unless otherwise specified: Implement Protocol 1701 (Given - Provid er: Owen Walter RN) ondansetron (ZOFRAN-ODT) disintegrating tablet 4 mg (COMPLETED) 4 mg, Translingual, ONCE, On Sun11/17/24 at 1600, For 1 dose, Common Side Effects: Lightheaded, stomach upset, headache. 170 (Given - Provid er: Owen Walter RN) Oral/Enteral Rehydration Fluids (Electrolyte Drink/Water) 960 mL 960 mL, Oral, Every 4 Hours While Awake, First dose on Sun11/17/24 at 2200, Consider sugar-free products for diabetic patients. Consider electrolyte drink for patients with low serum electrolytes. For flowsheet documentation, document actual volume consumed, regardless of the ordered volume (goal volume) 480 mL = 16 fluid ounces = 2 cups 960 mL = 32 fluid ounces = 4 cups Electrolyte Drink = gatorade or pedialyte or equivalent Approximate target time if ordered as a one time bolus - finish 480 mL (2 Cups) over 1 hour and 30 minutes - finish 960 mL (4 Cups) over 3 hours, Fluid Type: Water, Electrolyte Drink PRN Medication Order 11/15/2024 11/16/2024 11/17/2024 iohexoL (OMNIPAQUE) 350 mg iodine/mL injection 80 mL (COMPLETED) 80 mL, Intravenous, IMG ONCE PRN, other, Starting on Sun11/17/24 at 1729, For 1 dose, Vesicant agents may cause severe tissue damage, including necrosis, if they extravasate into tissue; Common Side Effects: Headache, nausea, allergic reaction. 1728 (Given - Provid er: Griselda Szymanski) sodium chloride 0.9% large volume syringe for autoinjector 20 mL (COMPLETED) 20 mL, Intravenous, IMG ONCE PRN, other, Imaging, Starting on Sun11/17/24 at 1729, For 1 dose 1728 (Given - Provid er: Griselda Szymanski) documented in this encounter Care Teams [employer] Relationship Specialty Start Date End Date Xin Murray NP [address] [place] [phone] PCP - General 11/17/24 documented as of this encounter
--- OUTSIDE RECORDS SUMMARY | 2024-12-12 13:48 | XMS_ITS | Encounter Summary ---
Author Organization [facility] Address [address] [place] [address] Care Team Providers Care Rac Specialist Name Role Phone Xin Murray SLIDE FASTENERS INSPECTOR Primary Care Provider [phone] Reason for Visit * Reason Onset Date Comments Other 12/09/2024 Encounter Details Date Type Department Care Team (Late st Contact Info) Description 12/09/2024 Telephone EXTERNAL REFERRAL SOURCE [address] [place] [address] Xin Murray, [employer]IDE [employer]STEN[employer] INSPECTOR [address] [place] [address] Other Social History Tobacco Use Types Packs/Day Years [...] encounter Miscellaneous Notes * Telephone Encounter - Allyson Tran - 12/09/2024 1:27 PM EST Copied from [facility] #[id number]. Topic: General Inquiry - General Inquiry >> Dec 09, 2024 1:21 PM Allyson Villalba wrote: Called patient at the request of provider to ask about previous GI provider and recent procedures. Patient stated the last colonoscopy and upper endoscopy was 11.27.24. Pod:Bariatrics/Colorectal/Digestive (BCD) documented in this encounter Plan of Treatment Upcoming Encounters Date Type Department Care Team (Late st Contact Info) Description 03/24/2025 9:30 AM EDT Office Visit [facility] [address] [facility] [address] [place], [place] [phone] Orin Ahn MD [address] [place] [address] documented as of this encounter Visit Diagnoses Not on filedocumented in this encounter Care Teams Rac Specialist Relationship Specialty Start Date End Date Xin Murray NP [address] [place] [address] PCP - General 11/17/24 documented as of this encounter
--- OUTSIDE RECORDS SUMMARY | 2024-12-12 13:48 | XMS_ITS | Clinical Summary ---
Author Organization [facility] Address [address] [place] [address] Care Team Providers Care Cp Bleacher Operator Name Role Phone Marcia Grey MD Primary Care Provider [phone] Allergies Active Allergy Reactions Criticality Noted Date Comments Budesonide 10/15/2023 Medications Medication Sig Dispensed Refills Start Date End Date Status ondansetron (ZOFRAN-ODT) 4 MG disintegrating tablet Take 1 tablet (4 mg total) by mouth every 8 (eight) hours as needed for nausea. 15 tablet 0 10/15/2023 Active mupirocin (BACTROBAN) 2 % ointment Apply topically 3 (three) times a day. 22 g 0 05/05/2024 Active cephalexin (KEFLEX) 500 MG capsule Take 1 capsule (500 mg total) by mouth 4 (four) times a day. 28 capsule 0 05/05/2024 Active Active Problems No known active problems Social History Tobacco Use Types Packs/Day Years Used Date Smoking Tobacco: Never Smokeless Tobacco: Never Tobacco Cessation:Counseling Given: Not Answered Alcohol Use Standard Drinks/Week Comments Never 0 (1 standard drink = 0.6 oz pur e alcohol) Sex and Gender Information Value Date Recorded Sex Assigned at Female 10/15/2023 10:41 AM EST Gender Identity Not on file Sexual Orientation Not on file Job Start Date Occupation Industry Not on file Not on file Not on file Last Filed Vital Signs Vital Sign Reading Time Taken Comments Blood Pressure 109/86 05/05/2024 2:26 PM EDT Pulse 84 05/05/2024 2:26 PM EDT Temperature 36.6 ??C (97.9 ??F) 05/05/2024 2:26 PM ED T Respiratory Rate 18 05/05/2024 2:26 PM EDT Oxygen Saturation 98% 05/05/2024 2:26 PM EDT Inhaled Oxygen Concentration - - Weight 89.8 kg (198 lb) 05/05/2024 2:26 PM EDT Height 154.9 cm (5' 1 ) 05/05/2024 2:26 PM EDT Body Mass Index 37.41 05/05/2024 2:26 PM EDT Plan of Treatment Health Maintenance Due Date Last Done Comments Hepatitis B Vaccines (1 of 3 - 3-dose series) 2000 Hepatitis C Screening 2000 COVID-19 Vaccine (#1) 2000 Depression Screening 2012 Gonorrhea and Chlamydia Screening 2013 Preventative Health Evaluation 2018 DTap / Tdap / Td (1 - Tdap) 2019 Cervical Cancer Screening (P ap Smear) 2021 Influenza Vaccine (#1) 2024 Pneumococcal Vaccine Aged Out No long er eligible based on patient's age to complete this topic RSV Ped < 20 months Aged Out No longe r eligible based on patient's age to complete this topic Care Teams Cp Bleacher Operator Relationship Specialty Start Date End Date Marcia Grey MD [address] [place] [address] PCP - General Pediatrics 10/15/23
--- OUTSIDE RECORDS SUMMARY | 2024-12-12 13:49 | XMS_ITS | Encounter Summary ---
Author Organization [facility] Address [address] [place] [phone] Care Team Providers Care Specialist Wound Care Name Role Phone Xin Murray NP Primary Care Provider [phone] Encounter Details Date Type Department Care Team (Late st Contact Info) Description 12/09/2024 Scanned Document [facility] SCHEDULING [address] [place], [place] [phone] Provider, Historical . Social History Tobacco Use Types Packs/Day Years Used Date Smoking Tobacco: Never Assessed PHQ-2 Answer Date Recorded PHQ-2 Total Score 0 12/10/2024 Comments Unknown Sex and Gender Information Value Date Recorded Sex Assigned at Not on file Legal Sex Female 1:32 PM EST Gender Identity Not on file Sexual Orientation Not on file documented as of this encounter Plan of Treatment Upcoming Encounters Date Type Department Care Team (Late st Contact Info) Description 03/24/2025 9:30 AM EDT Office Visit [facility] at [address] [place] [phone] Orin Ahn MD [address] [place] [phone] documented as of this encounter Procedures Procedure Name Priority Date/Time Associated Diagnosis Comments LAB SCAN Routine 10/20/2024 1:37 PM EST LAB SCAN Routine 10/20/2024 1:30 PM EST COLONOSCOPY (IMAGES) Routine 09/03/2024 1:33 PM EST documented in this encounter Results * Lab Scan (10/20/2024 1:37 PM EST) Historical Provider LAB BLOOD ORDERABLES Final R esult * Lab Scan (10/20/2024 1:30 PM EST) Historical Provider LAB BLOOD ORDERABLES Final R esult * Colonoscopy (09/03/2024 1:33 PM EST) [facility] Provider GI PROCEDURE ORDERABLES Laura l Result documented in this encounter Visit Diagnoses Not on filedocumented in this encounter Care Teams Specialist Wound Care Relationship Specialty Start Date End Date Xin Murray NP [address] [place] [address] PCP - General 11/17/24 documented as of this encounter
--- OUTSIDE RECORDS SUMMARY | 2024-12-12 13:49 | XMS_ITS | Clinical Summary ---
Author Organization [facility] Address [address] [id number] Care Team Providers Care Build Automation Engineer Name Role Phone Marcia Grey MD Primary Care Provider [phone] Source Comments Please note that some or all of the patient's information could have additional privacy protections. State laws allow health care providers to render certain types of treatment to minors without parental consent. Please do not assume that this information can be shared solely by obtaining just the consent of the patient's parent/guardian. Please determine if all or part of the patient's care was rendered without parent/guardian involvement. And, if so, obtain the minor's consent prior to disclosure.[facility] Allergies No known active allergies Medications sertraline (ZOLOFT) 50 MG tabletIndications :Chronic post-traumatic headache, not intractable Take 1 daily 90 tablet 1 03/30/2015 Active Active Problems Problem Noted Date Diagnosed Date Post-concussion headache 09/30/2015 Obesity due to excess calori es, unspecified obesity severity 09/30/2015 Anxiety disorder 03/30/2015 Resolved Problems Problem Noted Date Diagnosed Date Resolved Date Headache due to old concussion 03/30/2015 09/30/2015 Concussion 08/18/2014 09/30/2015 Social History Tobacco Use Types Packs/Day Years Used Date Smoking Tobacco: Never Alcohol Use Standard Drinks/Week Comments Not Asked 0 (1 standard drink = 0.6 oz pur e alcohol) Comments Unknown Sex and Gender Information Value Date Recorded Sex Assigned at Not on file Legal Sex Female 11:37 AM EDT Gender Identity Not on file Sexual Orientation Not on file Last Filed Vital Signs Vital Sign Reading Time Taken Comments Blood Pressure 110/59 09/30/2015 1:17 PM EST Pulse 76 09/30/2015 1:17 PM EST Temperature - - Respiratory Rate - - Oxygen Saturation - - Inhaled Oxygen Concentration - - Weight 89.4 kg (197 lb 1.5 oz) 09/30/2015 1:17 P M EST Height 154.1 cm (5' 0.67 ) 09/30/2015 1:17 PM ES T Body Mass Index 37.65 09/30/2015 1:17 PM EST Plan of Treatment Health Maintenance Due Date Last Done Comments DTaP/TDAP/TD VACCINES (1 - Tdap) 2007 ADOLESCENT HIV SCREENING 2013 COVID-19 Vaccine ( - 2023-2 5 season) 2024 INFLUENZA (#1) 2024 NIRSEVIMAB VACCINES UNDER 8 MONTHS Aged Out No longer eligible based on patient's age to complete this topic Insurance * Guarantor: OSWALDO GROVER Account Type Relation to Patient Date of Phone Billing Address Personal/Family Father 1899 [address] [place] [address] [employer] Care Teams Build Automation Engineer Relationship Specialty Start Date End Date Marcia Grey MD [address] [place] [address] PCP - General 07/14/14
--- OUTSIDE RECORDS SUMMARY | 2024-12-12 13:49 | XMS_ITS | Encounter Summary ---
Author Organization [facility] and [facility] Address [address] [place] [address] Care Team Providers Care Line O Scribe Operator Name Role Phone Xin Murray NP Primary Care Provider [phone] Reason for Referral * Imaging (Routine) - New Request Specialty Diagnoses / Procedures Referred By Bea shaw Referred To Contact Diagnoses Abnormal liver function tests Procedures US ABDOMEN COMPLETE Orin Ahn MD [address] [place] [phone] Phone: tel: fax: Referral ID Status Reason Start Date Expiration Date V isits Requested Visits Authorized [id number] New Request 12/10/2024 12/10/2025 1 1 Reason for Visit * Reason Comments Initial Evaluation New Patient Visit GI consult * Consultation (Urgent) - New Request Specialty Diagnoses / Procedures Referred By Bea shaw Referred To Contact Gastroenterology Diagnoses Transaminitis Steven Mooney MD [address] [facility] [id number] [place] [address] Phone: tel: fax: [facility] [address] [facility] [address] [facility] [address] [place] [address] Phone: tel: fax: Referral ID Status Reason Start Date Expiration Date Visits Requested Visits Authorized [id number] New Request Specialty Services Required 11/17/2024 11/17/2025 1 1 Encounter Details Date Type Department Care Team (Late st Contact Info) Description 12/10/2024 9:00 AM EST [facility] Visit [facility] [address] [place] [phone] Orin Ahn MD [address] [place] [phone] Abnormal liver function tests (Primary Dx); Bilious vomiting with nausea; Rectal bleeding Social History Tobacco Use Types Packs/Day Years Used Date Smoking Tobacco: Never Tobacco Cessation:Counseling Given: Not Answered Alcohol Use Standard Drinks/Week Comments Yes 0 (1 standard drink = 0.6 oz pur e alcohol) rarely PHQ-2 Answer Date Recorded PHQ-2 Total Score 0 12/10/2024 Comments Unknown Sex and Gender Information Value Date Recorded Sex Assigned at Not on file Legal Sex Female 1:32 PM EST Gender Identity Not on file Sexual Orientation Not on file documented as of this encounter Last Filed Vital Signs Vital Sign Reading Time Taken Comments Blood Pressure 104/73 12/10/2024 8:58 AM EST Pulse 70 12/10/2024 8:53 AM EST Temperature 36.2 ??C (97.2 ??F) 12/10/2024 8:53 AM ES T Respiratory Rate - - Oxygen Saturation 100% 12/10/2024 8:53 AM EST Inhaled Oxygen Concentration - - Weight 84.2 kg (185 lb 11.2 oz) 12/10/2024 8:53 AM EST Height 153 cm (5' 0.25 ) 12/10/2024 8:53 AM EST Body Mass Index 35.97 12/10/2024 8:53 AM EST documented in this encounter Patient Instructions * Patient Instructions* Orin Ahn MD - 12/10/2024 9:00 AM EST Ultrasound was ordered Labs were drawn Start Miralax as needed for constipation We will consider starting a Tricyclic anti-depressant (nortriptyline)--speak with your doctor documented in this encounter Progress Notes * Orin Ahn MD - 12/10/2024 9:00 AM EST Images from the original note were not included. [facility] NEW PATIENT OFFICE VISIT History of Present Illness: Referred by: Xin Murray NP Reason for referral: Nausea and vomiting Ms. Grover is a 24 year old woman who presents as a second option for nausea and vomiting. For approximately one and a half to two years, she has experienced recurrent episodes of severe nausea and vomiting, which have progressively increased in frequency to up to a few times a month. These episodes are characterized by severe nausea,vomiting, and inability to tolerate PO. Lately, she has experienced diarrhea, right-sided abdominal pain, and bloating along with episodes. 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 She has lost approximately ten pounds over the course of her illness, primarily during episodes when sheis unable to eat. She has had several visits to the ED, during which she is treated suppotively. Outpatient imaging with CT, EGD and colonsocopy were non-diagnostic. She was treated with antibiotics, possibly amoxicillin or Augmentin, for a suspected gastrointestinal infection on one occasion, which provided temporary relief. She was recently evaluated at the [facility], and was noted again to have elevated liver tests. She has been prescribed Zofran for nausea, which she takes as needed, but reports it only provides minimal relief. She also takes Lansoprazole for acid reflux. Her father notes that she has recently been on a more regular eating schedule, which seems to have improved her overall condition. She has a history of using marijuana for insomnia, which she discontinued over a year ago after being advised it might contribute to her symptoms. Though her episodes are associated with diarrhea, she has constipation with hard stools and occasional bright red blood, likely from hemorrhoids, between episodes. No regular use of [id number] supplements or alcohol, consuming alcohol only on special occasions. Of note, the patient has been off of her psychiatric medications for anxiety, depression and ADHD for more than a month because her previous doctor retired. Patient History: There are no active problems to display for this patient. Past Surgical History: Procedure Laterality Date CHOLECYSTECTOMY COLONOSCOPY NASAL ENDOSCOPY Past Medical History: Diagnosis Date ADHD Anxiety Depression Gastritis Migraines No family history on file. Not on File Social History Socioeconomic History Marital status: Single Tobacco Use Smoking status: Never Vaping Use Vaping status: Never Used Substance and Sexual Activity Alcohol use: Yes Comment: rarely Drug use: Yes Types: Marijuana Social Drivers of Health Financial Resource Strain: Medium Risk (01/20/2022) Received from [facility] Financial Resource Strain Financial Concerns: 2 Transportation Needs: Unknown (12/15/2021) Received from [facility] Transportation Needs Lack of Transportation (Medical): 0 Physical Activity: Unknown (12/15/2021) Received from [facility] Physical Activity Calculated Minutes of Exercise per Week:: 0 Stress: Unknown (12/15/2021) Received from [facility] Stress Patient Reported Major Stressor(s): 0 Patient Reported Strengths: 1 Patient Reported Source(s) of Support: 1 Social Connections: Unknown (12/15/2021) Received from [facility] Social Connections Social Connection Calculated Score: 0 Housing Stability: Unknown (12/15/2021) Received from [facility] Housing Stability Housing Concerns: 0 Current Outpatient Medications: Current Outpatient Medications on File Prior to Visit Medication Sig Dispense Refill famotidine (PEPCID) 20 mg tablet Take 1 tablet (20 mg total) by mouth 2 (two) times daily. 30 tablet 0 ondansetron (ZOFRAN) 4 mg tablet Take 2 tablets (8 mg total) by mouth every 8 (eight) hours as needed for nausea. 12 tablet 0 No current facility-administered medications on file prior to visit. Physical Exam: BP 104/73 (Site: r a, Position: Sitting, Cuff Size: Large) Pulse 70 Temp 97.2 ??F (36.2 ??C) Ht 5' 0.25 (1.53 m) Wt 84.2 kg SpO2 100% BMI 35.97 kg/m?? Physical Exam: Constitutional: she appears well-developed and well-nourished. No distress. HENT: Normocephalic. Moist mucous membranes. No oropharyngeal lesions. Eyes: No scleral icterus or conjunctival pallor Cardiovascular: Normal rate and regular rhythm. No LE edema. Pulmonary/Chest: Effort normal and breath sounds normal. No respiratory distress. she has no wheezes. Abdominal: Normal bowel sounds, soft, nondistended, no masses, nontender, no guarding or rebound. Neurological: she is alert and oriented to person, place, and time. Skin: Skin is warm and dry. Psychiatric: she has a normal mood and affect. Labs & Diagnostics: Lab Review: I have reviewed the patient's pertinent laboratory data. Significant findings include: Complete Blood Count Lab Results Component Value Date WBC 7.4 11/17/2024 HGB 12.8 11/17/2024 HCT 40.10 11/17/2024 MCV 83.7 11/17/2024 PLT 259 11/17/2024 Complete Metabolic Panel Lab Results Component Value Date NA 141 11/17/2024 K 3.6 11/17/2024 CL 107 11/17/2024 CO2 20 11/17/2024 BUN 9 11/17/2024 CREATININE 0.99 11/17/2024 GLU 83 11/17/2024 CALCIUM 8.9 11/17/2024 PROT 7.3 11/17/2024 ALBUMIN 4.2 11/17/2024 BILITOT 0.6 11/17/2024 ALT 113 (H) 11/17/2024 AST 76 (H) 11/17/2024 ALKPHOS 133 (H) 11/17/2024 LIPASE 26 11/17/2024 12/31/23 Alt = 37 AST = 26, AP = 94, BT = 0.4 10/20/24 CRP = 12.06 Diagnostics: 09/03/24 EGD: Mild esophagitis, patchy gastric erythema (esophagitis, neg EoE, neg HP, neg celiac) 09/03/24 Colonoscopy: Poor prep (BBPS 3), internal hemorrhoids, otherwise normal 11/17/24 CT: IMPRESSION: No acute findings. Subcentimeter mesenteric lymph nodes are nonspecific. Assessment & Plan: Ms. Grover is a 24 year old woman who presents to discuss episodic nausea and vomiting. She has consistently had elevated liver enzymes, which were higher than baseline recently, in a mixed pattern.We will perform a full serologic evaluation and obtain an US. The US will also serve to evaluate the cause of her pain and exclude choledocholithiasis (she is s/p cholecystectomy). If this work-up is negative, we discussed treatment for a DBGI, specifically cyclic vomiting syndrome. She will be establishing care with a new PMD and hopes to restart her psych medications. She will inquire about whether there are any concerns about stating a low dose TCA for CVS, as well. In themeantime, she will continue prn zofran as abortive therapy and work on lifestyle modifications. Of note, she has been abstinent from cannabis for 1 year.. The patient does have intermittent rectal bleeding that sounds consistent with benign anorectal disease. She had a colonoscopy that was notable for a poor prep,which will eventually need to be repeated. In the meantime, she will use Miralax as needed for constipation. 1. Abnormal liver function tests - Hepatic function panel; Future - Hepatitis B surface antibody ([facility]); Future - Hepatitis B surface antigen ([facility]); Future - Hepatitis B core antibody, total; Future - Ceruloplasmin; Future - DAVID IFA screen w/rflx titer and pattern, IFA; Future - Mitochondria M2 antibody (IgG), EIA; Future - Smooth Muscle Ab Screen w/ Rflx Titer ([facility]); Future - Liver-kidney microsome antibody, IgG ([facility]); Future - Immunoglobulin G; Future - Hepatitis A antibody, total ([facility] Q); Future - GAMMA GT; Future - Iron, TIBC and ferritin panel ([facility]); Future - Hepatitis C Ab with reflex to HCV PCR; Future - US ABDOMEN COMPLETE - Hepatic function panel - Hepatitis B surface antibody ( [facility]) - Hepatitis B surface antigen ([facility]) - Hepatitis B core antibody, total - Ceruloplasmin - DAVID IFA screen w/rflx titer and pattern, IFA - Mitochondria M2 antibody (IgG), EIA - Smooth Muscle Ab Screen w/ Rflx Titer ([facility]) - Liver-kidney microsome antibody, IgG ([facility]) - Immunoglobulin G - Hepatitis A antibody, total ([facility]) - GAMMA GT - Iron, TIBC and ferritin panel ([facility]) - Hepatitis C Ab with reflex to HCV PCR 2. Bilious vomiting with nausea - ondansetron (ZOFRAN) 8 mg tablet; Take 1 tablet (8 mg total) by mouth every 12 (twelve) hours as needed for nausea or vomiting. Dispense: 60 tablet; Refill: 2 -Will consider TCA for CVS based on work up and clinical course 3. Rectal bleeding -Eventual repeat colonoscopy Orin Ahn MD 12/10/24 10:58 AM documented in this encounter Miscellaneous Notes * Addendum Note - Danis Stewart - 12/10/2024 9:00 AM ESTAddended by: DANIS STEWART on: 12/10/2024 07:45 PM Modules accepted: Orders documented in this encounter Plan of Treatment Upcoming Encounters Date Type Department Care Team (Late st Contact Info) Description 03/24/2025 9:30 AM EDT Office Visit [facility] [address] [address] Orin Ahn MD [address] [place] [phone] Pending Results Name Type Priority Associated Diagnoses Date /Time Smooth Muscle Ab Screen w/ Rflx Titer ([facility]) Lab Routine Abnormal liver function tests 12/10/2024 9:40 AM EST Scheduled Orders Name Type Priority Associated Diagnoses Orde r Schedule Smooth Muscle Ab Screen w/ Rflx Titer ([facility]) Lab Routine Abnormal liver function tests Expected: 12/10/2024, Expires: 02/08/2026 US ABDOMEN COMPLETE Imaging Routine Abnormal liver function tests Ordered: 12/10/2024 documented as of this encounter Procedures Procedure Name Priority Date/Time Associated Diagnosis Comments HEPATITIS A ANTIBODY, IGG ([facility]) Routine 12/10/2024 9:40 AM EST Abnormal liver function tests MITOCHONDRIA M2 ANTIBODY (IGG), EIA Routine 12/10/2024 9:40 AM EST Abnormal liver function tests IRON AND TIBC Routine 12/10/2024 9:40 AM EST Abnormal liver function tests LIVER-KIDNEY MICROSOME ANTIBODY, IGG ([facility] Q [facility]) Routine 12/10/2024 9:40 AM EST Abnormal liver function tests HEPATITIS C AB WITH REFLEX TO HCV PCR Routine 12/10/2024 9:40 AM EST Abnormal liver function tests IRON AND TIBC Routine 12/10/2024 9:40 AM EST Abnormal liver function tests HEPATITIS A ANTIBODY, IGM Routine 12/10/2024 9:40 AM EST Abnormal liver function tests CERULOPLASMIN Routine 12/10/2024 9:40 AM EST Abnormal liver function tests HEPATITIS B CORE ANTIBODY, TOTAL Routine 12/10/2024 9:40 AM EST Abnormal liver function tests HEPATITIS B SURFACE ANTIBODY ([facility]) Routine 12/10/2024 9:40 AM EST Abnormal liver function tests HEPATITIS B SURFACE ANTIGEN ([facility]) Routine 12/10/2024 9:40 AM EST Abnormal liver function tests DAVID IFA SCREEN W/REFL TO TITER AND PATTERN, IFA Routine 12/10/2024 9:40 AM EST Abnormal liver function tests GAMMA GT Routine 12/10/2024 9:40 AM EST Abnormal liver function tests IMMUNOGLOBULIN G Routine 12/10/2024 9:40 AM EST Abnormal liver function tests FERRITIN Routine 12/10/2024 9:40 AM EST Abnormal liver function tests HEPATIC FUNCTION PANEL Routine 9:40 AM EST Abnormal liver function tests documented in this encounter Results * Hepatitis A antibody, IgM (12/10/2024 9:40 AM EST) Hepatitis A Antibody, IgM Negative Negative 12/10/2024 11:07 PM EST [facility] Blood ARM NEC / Unknown Venipuncture / Unknown 12/10/2024 9:40 AM EST 12/10/2024 2:56 PM EST Orin Ahn MD LAB BLOOD ORDE RABLES Final Result [facility] [address] [place] [address] * Hepatitis A antibody, IgG (Y) (12/10/2024 9:40 AM EST) Hepatitis A Antibody, IgG Positive Negative 12/10/2024 11:03 PM EST [facility] Blood ARM NEC / Unknown Venipuncture / Unknown 12/10/2024 9:40 AM EST 12/10/2024 2:56 PM EST Orin Ahn MD LAB BLOOD ORDE RABLES Final Result [facility] [address] [place] [address] * Ferritin (12/10/2024 9:40 AM EST) Ferritin 40 13 - 150 ng/mL 12/10/2024 4:11 PM EST [facility] Blood ARM NEC / Unknown Venipuncture / Unknown 12/10/2024 9:40 AM EST 12/10/2024 3:14 PM EST Orin Ahn MD LAB BLOOD ORDE RABLES Final Result [facility] [address] [place] [address] * Iron and TIBC (12/10/2024 9:40 AM EST) [facility] Iron 141 37 - 145 ug/dL 12/10/2024 4:11 PM EST [facility] Comment:In the presence of h igh ferritin concentrations >1200 ng/mL, the assumption that serum iron is almost completely bound to transferrin is no longer valid. Therefore, such iron results should not be used to calculate Total Iron Binding Capacity (TIBC) or percent transferrin saturation (%SAT). Iron Saturation 36 15 - 50 % 4:11 PM EST [facility] TIBC 394 250 - 450 ug/dL 12/10/2024 4:11 PM EST [facility] Blood ARM NEC / Unknown Venipuncture / Unknown 12/10/2024 9:40 AM EST 12/10/2024 3:14 PM EST Orin Ahn MD LAB BLOOD ORDE RABLES Final Result [facility] [address] [phone] * Hepatitis C Ab with reflex to HCV PCR (12/10/2024 9:40 AM EST) [facility] Hepatitis C Antibody Negative Negative 12/10/2024 6:37 PM [facility] Comment:A negative result do es not exclude HCV infection, since antibodies are not detectable for 4-8 weeks after initial infection, or may not develop in compromised hosts. In high-risk individuals, repeat antibody testing in 2 months and/or HCV RNA PCR should be considered. Blood ARM NEC / Unknown Venipuncture / Unknown 12/10/2024 9:40 AM EST 12/10/2024 2:56 PM EST Orin Ahn MD LAB BLOOD ORDE RABLES Final Result [facility] [address] [place] [address] * GAMMA GT (12/10/2024 9:40 AM EST) GGT 34 <48 U/L 12/10/2024 4:11 PM EST [facility] Blood ARM NEC / Unknown Venipuncture / Unknown 12/10/2024 9:40 AM EST 12/10/2024 3:14 PM EST Orin Ahn MD LAB BLOOD ORDE RABLES Final Result [facility] [address] [place] [address] * Immunoglobulin G (12/10/2024 9:40 AM EST) Immunoglobulin G 1,241 700 - 1,600 mg/dL 12/10/2024 4:29 PM EST [facility] Blood ARM NEC / Unknown Venipuncture / Unknown 12/10/2024 9:40 AM EST 12/10/2024 3:14 PM EST Orin Ahn MD LAB BLOOD ORDE RABLES Final Result [facility] [address] [place] [address] * Liver-kidney microsome antibody, IgG ([facility] Q [facility]) (12/10/2024 9:40 AM EST) Liver-Kidney Microsomal Ab, IgG <2.0 <=20.0 Units 12/11/2024 1:46 PM EST [facility] Comment: Reference Interval: ? <=20.0 Units = Negative ?20.1-24.9 Units = Equivocal ? >=25.0 Units = Positive ?? Autoimmune hepatitis (AIH) can be categorized into three groups based on the presence of particular autoantibodies. AIH Type 1 (the more common type) usually demonstrates a positive DAVID and Smooth Muscle antibodies. AIH Type 2 is characterized by the absence of DAVID and Smooth Muscle antibodies and the presence of LKM-1 antibodies(cytochrome P450 2D6). AIH Type 3 is characterized by Soluble Liver antibodies, which react with liver cytokeratins. Blood ARM NEC / Unknown Venipuncture / Unknown 12/10/2024 9:40 AM EST 12/10/2024 2:57 PM EST us Orin Ahn MD LAB BLOOD ORDE SHAE Final Result [facility] [address] [place] [address] * Mitochondria M2 antibody (IgG), EIA (12/10/2024 9:40 AM EST) Mitochondrial M2 Antibody, IgG 1.3 <4.0 U/mL 12/11/2024 7:15 PM EST [facility] Comment: Reference Interval: ?<4 U/mL = Negative ? 4-6 U/mL = Equivocal ? >6 U/mL = Positive ? Mitochondrial M2 Antibody, IgG is useful for establishing the diagnosis of primary biliary cirrhosis (PBC). Autoantibodies directed against multiple mitochondrial antigens have been identified in PBC and other autoimmune disorders (M1-M9); however, autoantibodies directed against the M2 antigen fraction of the inner mitochondrial membrane, including PDC-E2, BCOADC-E2 and OGDC-E2, are the most sensitive and specific for PBC. ??A positive result with this assay can be used in conjunction with clinical findings as diagnostic for PBC. As of 10/09/2024, this assay is being performed on the [employer] System with results reported quantitively by [employer]. Blood ARM NEC / Unknown Venipuncture / Unknown 12/10/2024 9:40 AM EST 12/10/2024 2:57 PM EST Orin Ahn MD LAB BLOOD ORDE RABFRANCK Final Result [facility] [address] [place] [address] * DAVID IFA screen w/rflx titer and pattern, IFA (12/10/2024 9:40 AM EST) DAVID <1:80 <1:80 (Negative ) 12/11/2024 3:23 PM EST [facility] Comment: Specimen tested using a HEp-2 indirect immunofluorescent assay. Effective June 16, 2024, DAVID testing will be performed on the [employer] IFA platform. Please note; previous results may not directly correlate due to method change. Blood ARM NEC / Unknown Venipuncture / Unknown 12/10/2024 9:40 AM EST 12/10/2024 2:57 PM EST us Orin Ahn MD LAB BLOOD ORDE SHAE Final Result Performing Organization Address [facility] Co de Phone Number [facility] [address] [place] [address] * Ceruloplasmin (12/10/2024 9:40 AM EST) Pathologist [facility] Ceruloplasmin 39 18 - 51 mg/dL 12/10/2024 4:07 PM EST [facility] Blood ARM NEC / Unknown Venipuncture / Unknown 12/10/2024 9:40 AM EST 12/10/2024 3:14 PM EST Orin Ahn MD LAB BLOOD ORDE RABFRANCK Final Result [facility] [address] [place] [address] * Hepatitis B core antibody, total (12/10/2024 9:40 AM EST) Hepatitis B Core Antibody, Total Negative Negative 12/10/2024 6:35 PM EST [facility] Blood ARM NEC / Unknown Venipuncture / Unknown 12/10/2024 9:40 AM EST 12/10/2024 2:56 PM EST Orin Ahn MD LAB BLOOD ORDE RABFRANCK Final Result Performing Organization Address [facility] Co de Phone Number [facility] [address] [place] [address] * Hepatitis B surface antigen ([facility] L LMW Y) (12/10/2024 9:40 AM EST) Pathologist [facility] Hepatitis B Surface Antigen Negative Negative 12/10/2024 6:36 PM EST [facility] Blood ARM NEC / Unknown Venipuncture / Unknown 12/10/2024 9:40 AM EST 12/10/2024 2:56 PM EST Orin Ahn MD LAB BLOOD ORDE SHAE Final Result Performing Organization Address [facility] de Phone Number [facility] [address] [place] [address] * Hepatitis B surface antibody ([facility] L LMW Y) (12/10/2024 9:40 AM EST) Pathologist [facility] Hepatitis B Surface Antibody <8.00 > or = 12 mIU/mL 12/10/2024 6:33 PM EST [facility] Comment: Patient is considered to be not immune to infection with HBV. This assay was restandardized from the 1st to the 2nd WHO International Reference Standard on 03/19/18. A slight upward shift in values was noted. Blood ARM NEC / Unknown Venipuncture / Unknown 12/10/2024 9:40 AM EST 12/10/2024 2:56 PM EST Orin Ahn MD LAB BLOOD ORDCrystal SHAE Final Result [facility] [address] [place] [address] * (ABNORMAL) Hepatic function panel (12/10/2024 9:40 AM EST) Total Bilirubin 0.9 <=1.2 mg/dL 12/11/19 25 4:11 PM [facility] Bilirubin, Direct 0.3(H) <=0.2 mg/dL 2024 4:11 PM [facility] Alkaline Phosphatase 76 9 - 122 U/L 12/10/2024 4:11 PM [facility] Alanine Aminotransferase (ALT) 44(H) 10 - 35 U/L 12/10/2024 4:11 PM [facility] Comment:Calcium dobesilate c an cause artificially low ALT results at therapeutic concentrations Aspartate Aminotransferase (AST) 25 10 - 35 U/L 12/10/2024 4:11 PM [facility] AST/ALT Ratio 0.6 Reference Range Not Established 12/10/2024 4:11 PM [facility] DEPARTMENT OF LABORATORY MEDICINE Total Protein 7.2 5.9 - 8.3 g/dL 025 4:11 PM [facility] DEPARTMENT OF LABORATORY MEDICINE Comment:As of 2024, th e reference interval for Total Protein has been changed from (6.6 to 8.7 g/dL) to (5.9 to 8.3 g/dL). Albumin 4.1 3.6 - 5.1 g/dL 12/10/2024 4:11 PM [facility] DEPARTMENT OF LABORATORY MEDICINE Comment:As of 2024, th e reference interval for Albumin has been changed from (3.6 to 4.9 g/dL) to (3.6 to 5.1 g/dL). Globulin 3.1 2.0 - 3.9 g/dL 12/10/2024 4:11 PM [facility] DEPARTMENT OF LABORATORY MEDICINE Comment:As of 2024, th e reference interval for Globulin has been changed from (2.3 to 3.5 g/dL) to (2.0 to 3.9 g/dL). A/G Ratio 1.3 1.0 - 2.2 12/10/2024 4:11 PM EST [facility] DEPARTMENT OF LABORATORY MEDICINE Blood ARM NEC / Unknown Venipuncture / Unknown 12/10/2024 9:40 AM EST 12/10/2024 3:14 PM EST Orin Ahn MD LAB BLOOD ORDE SHAE Final Result [facility] DEPARTMENT OF LABORATORY MEDICINE [address] [place] [address] documented in this encounter Visit Diagnoses Diagnosis Abnormal liver function tests- Primary Other abnormal blood chemistry Bilious vomiting with nausea Rectal bleeding Hemorrhage of rectum and anus documented in this encounter Care Teams Line O Scribe Operator Relationship Specialty Start Date End Date Xin Murray NP [address] [place] [id number] PCP - General 11/17/24 documented as of this encounter
--- OUTSIDE RECORDS SUMMARY | 2024-12-12 13:49 | XMS_ITS | Clinical Summary ---
Author Organization [address] Address [address] [place] [phone] Phone Care Team Providers Care Shell Mold Bonder Name Role Phone Xin Murray NP Primary Care Provider [phone] [id number] Medications famotidine (PEPCID) 20 mg tablet Take 1 tablet (20 mg total) by mouth 2 (two) times daily. 30 tablet 5 Active ondansetron (ZOFRAN) 4 mg tablet Take 2 tablets (8 mg total) by mouth every 8 (eight) hours as needed for nausea. 12 tablet 5 Active ondansetron (ZOFRAN) 8 mg tabletIndicati ons:Bilious vomiting with nausea Take 1 tablet (8 mg total) by mouth every 12 (twelve) hours as needed for nausea or vomiting. 60 tablet 2 5 Active famotidine (PEPCID) 20 mg tablet Take 1 tablet (20 mg total) by mouth 2 (two) times daily. 30 tablet 5 11/17/19 25 Discontinued ondansetron (ZOFRAN) 4 mg tablet Take 2 tablets (8 mg total) by mouth every 8 (eight) hours as needed for nausea. 12 tablet 5 11/17/19 25 Discontinued Encounters Date Type Department Care Team Description 12/10/2024 9:00 AM EST Office Visit [facility] [address] [phone] Orin Ahn MD Abnormal liver function tests (Primary Dx); Bilious vomiting with nausea; Rectal bleeding 12/09/2024 Scanned Document [facility] SCHEDULING [address] [place] [address] Provider, Historical 12/09/2024 Telephone EXTERNAL REFERRAL SOURCE [address] [place] [address] Xin Murray NP Other 12/08/2024 [facility] at [address] [facility] [address] [place] [address] Orin Ahn MD Other (Medical records) 11/17/2024 2:47 PM EST - 11/17/2024 8:48 PM EST Emergency [facility] Emergency Department [address] [place] [address] John Styles MD Transaminitis (Primary Dx); Nonspecific mesenteric lymphadenitis; Abdominal pain, vomiting, and diarrhea Discharge Disposition: Home or Self Care from Last 3 Months Social History Tobacco [...] 12/10/2024 8:53 AM ES T Respiratory Rate 16 11/17/2024 8:31 PM EST Oxygen Saturation 100% 12/10/2024 8:53 AM EST Inhaled Oxygen Concentration - - Weight 84.2 kg (185 lb 11.2 oz) 12/10/2024 8:53 AM EST Height 153 cm (5' 0.25 ) 12/10/2024 8:53 AM EST Body Mass Index 35.97 12/10/2024 8:53 AM EST Plan of Treatment Upcoming Encounters Date Type Department Care Team (Late st Contact Info) Description 03/24/2025 9:30 AM EDT Office Visit [facility] [address] [phone] Orin Ahn MD [address] [place] [phone] Health Maintenance Due Date Last Done Comments MMR Vaccines (1 of 1 - Stand ramona series) 2001 DTaP/TDaP Vaccines (1 - Tdap) 2007 HIV screening 2013 Varicella Vaccines (1 of 2 - 13+ 2-dose series) 2013 HPV vaccine series (1 - 3-do se series) 2015 Chlamydia screening 2017 Hepatitis B vaccine series ( 1 of 3 - 19+ 3-dose series) 2019 Tetanus adult (Td q 10,TDAP once) 2020 Cervical cancer screening 2021 Influenza vaccine 05/08/2024 Covid-19 vaccine series (1 - 2023-25 season) 2024 RSV Discussion (1 - 1-dose 7 5+ series) 2075 Hepatitis C screening Completed 12/10/2024 HIB Vaccines Aged Out No longer eligi ble based on patient's age to complete this topic Hepatitis A Vaccines Aged Out No long er eligible based on patient's age to complete this topic IPV Vaccines Aged Out No longer eligi ble based on patient's age to complete this topic Meningococcal Vaccine Aged Out No andrew amelia eligible based on patient's age to complete this topic Pneumococcal Vaccine (2 - 49 years) Aged Out No longer eligible b ased on patient's age to complete this topic Rotavirus Vaccines Aged Out No longer eligible based on patient's age to complete this topic Procedures Procedure Name Priority Date/Time Associated Diagnosis Comments HEPATITIS A ANTIBODY, IGM Routine 12/10/2024 9:40 AM EST Abnormal liver function tests HEPATITIS A ANTIBODY, IGG (YH) Routine 12/10/2024 [...] liver function tests HEPATIC FUNCTION PANEL Routine 12/10/2024 9:40 AM EST Abnormal liver function tests CT ABDOMEN PELVIS W IV CONTRAST STAT 11/17/2024 5:28 PM EST XR CHEST PA AND LATERAL Within 1 hour (STAT) 11/17/2024 5:23 PM EST COMPREHENSIVE METABOLIC PANEL STAT 11/17/2024 5:07 PM EST CBC AND DIFFERENTIAL STAT 11/17/2024 5:07 PM EST COMPREHENSIVE METABOLIC PANEL STAT 11/17/2024 5:07 PM EST CBC WITH AUTO DIFFERENTIAL STAT 11/17/2024 5:07 PM EST LIPASE STAT 11/17/2024 5:07 PM EST POCT URINE STAT 11/17/2024 4:59 PM EST LAB SCAN Routine 10/20/2024 1:37 PM EST LAB SCAN Routine 10/20/2024 1:30 PM EST from Last 3 Months Results * Hepatitis A antibody, IgG () (12/10/2024 9:40 AM EST) Hepatitis A Antibody, IgG Positive Negative 12/10/2024 11:03 PM EST [facility] Blood ARM NEC / Unknown Venipuncture / Unknown 12/10/2024 9:40 AM EST 12/10/2024 2:56 PM EST Orin Ahn MD LAB BLOOD BALAJI KAUFMAN Final Result [facility] [address] [place] [address] * Mitochondria M2 antibody (IgG), EIA (12/10/2024 9:40 AM EST) Mitochondrial M2 Antibody, IgG 1.3 <4.0 U/mL 12/11/2024 7:15 PM EST [facility] Comment: Reference Interval: [...] this assay is being performed on the [employer] System with results reported quantitively by [employer]. Blood ARM NEC / Unknown Venipuncture / Unknown 12/10/2024 9:40 AM EST 12/10/2024 2:57 PM EST Orin Ahn MD LAB BLOOD ORDCrystal KAUFMAN Final Result Performing Organization Address City/State/[facility] Co de Phone Number [facility] [address] [place] [address] * Liver-kidney microsome antibody, IgG (BH GH LMW Q YH) (12/10/2024 9:40 AM EST) Liver-Kidney Microsomal Ab, IgG <2.0 <=20.0 Units 12/11/2024 1:46 PM EST [facility] Comment: Reference Interval: [...] ORDE SHAE Final Result Performing Organization Address [facility] de Phone Number [facility] [address] [place] [address] * Hepatitis C Ab with reflex to HCV PCR (12/10/2024 9:40 AM EST) Pathologist [facility] Hepatitis C Antibody Negative Negative 12/10/2024 6:37 PM EST [facility] Comment:A negative result [...] ORDE SHAE Final Result Performing Organization Address [facility] de Phone Number [facility] [address] [place] [address] * Iron and TIBC (12/10/2024 9:40 AM EST) Pathologist [facility] Iron 141 37 - 145 ug/dL 12/10/2024 4:11 PM EST [facility] Comment:In the presence of h igh ferritin concentrations >1200 ng/mL, the assumption that serum iron is almost completely bound to transferrin is no longer valid. Therefore, such iron results should not be used to calculate Total Iron Binding Capacity (TIBC) or percent transferrin saturation (%SAT). Iron Saturation 36 15 - 50 % 4:11 PM EST [facility] TIBC 394 250 - 450 ug/dL 12/10/2024 4:11 PM EST [facility] Blood ARM NEC / Unknown Venipuncture / Unknown 12/10/2024 9:40 AM EST 12/10/2024 3:14 PM EST Orin Ahn MD LAB BLOOD ORDE RABFRANCK Final Result Performing Organization Address City/[facility]/ZIP Co de Phone Number [facility] [address] [place] [address] * Hepatitis A antibody, IgM (12/10/2024 9:40 AM EST) Hepatitis A Antibody, IgM Negative Negative 12/10/2024 11:07 PM EST [facility] Blood ARM NEC / Unknown Venipuncture / Unknown 12/10/2024 9:40 AM EST 12/10/2024 2:56 PM EST Orin Ahn MD LAB BLOOD ORDE RABFRANCK Final Result Performing Organization Address City/[facility] Co de Phone Number [facility] [address] [place] [address] * Ceruloplasmin (12/10/2024 9:40 AM EST) Ceruloplasmin 39 18 - 51 mg/dL 12/10/2024 4:07 PM EST [facility] Blood ARM NEC / Unknown Venipuncture / Unknown 12/10/2024 9:40 AM EST 12/10/2024 3:14 PM EST Orin Ahn MD LAB BLOOD ORDE RABFRANCK Final Result Performing Organization Address City/[facility]/ZIP Co de Phone Number [facility] [address] [place] [address] * Hepatitis B core antibody, total (12/10/2024 9:40 AM EST) Hepatitis B Core Antibody, Total Negative Negative 12/10/2024 6:35 PM EST [facility] Blood ARM NEC / Unknown Venipuncture / Unknown 12/10/2024 9:40 AM EST 12/10/2024 2:56 PM EST Orin Ahn MD LAB BLOOD ORDE RABLES Final Result Performing Organization Address [facility] de Phone Number [facility] [address] [place] [address] * Hepatitis B surface antibody (BH GH L LMW Y) (12/10/2024 9:40 AM EST) Hepatitis B Surface Antibody <8.00 > or = 12 mIU/mL 12/10/2024 6:33 PM EST [facility] Comment: Patient is [...] MD LAB BLOOD ORDE RABLES Final Result Performing Organization Address [facility] de Phone Number [facility] [address] [place] [address] * Hepatitis B surface antigen (BH GH L LMW YH) (12/10/2024 9:40 AM EST) Hepatitis B Surface Antigen Negative Negative 12/10/2024 6:36 PM EST [facility] Blood ARM NEC / Unknown Venipuncture / Unknown 12/10/2024 9:40 AM EST 12/10/2024 2:56 PM EST Orin Ahn MD LAB BLOOD ORDE RABLES Final Result Performing Organization Address [facility] Co de Phone Number [facility] [address] [place] [address] * DAVID IFA screen w/rflx titer and pattern, IFA (12/10/2024 9:40 AM EST) DAVID <1:80 <1:80 (Negative ) 12/11/2024 3:23 PM EST [facility] Comment: Specimen tested using a HEp-2 indirect immunofluorescent assay. Effective June 16, 2024, DAVID testing will be performed on the [employer] IFA platform. Please note; previous results may not directly correlate due to method change. Blood ARM NEC / Unknown Venipuncture / Unknown 12/10/2024 9:40 AM EST 12/10/2024 2:57 PM EST us Orin Ahn MD LAB BLOOD ORDE RABLES Final Result Performing Organization Address [facility] Co de Phone Number [facility] [address] [place] [address] * GAMMA GT (12/10/2024 9:40 AM EST) Pathologist [facility] GGT 34 <48 U/L 12/10/2024 4:11 PM EST [facility] Blood ARM NEC / Unknown Venipuncture / Unknown 12/10/2024 9:40 AM EST 12/10/2024 3:14 PM EST us Orin Ahn MD LAB BLOOD ORDE RABLES Final Result Performing Organization Address City/[facility] Co de Phone Number [facility] [address] [place] [address] * Immunoglobulin G (12/10/2024 9:40 AM EST) Immunoglobulin G 1,241 700 - 1,600 mg/dL 12/10/2024 4:29 PM EST [facility] Blood ARM NEC / Unknown Venipuncture / Unknown 12/10/2024 9:40 AM EST 12/10/2024 3:14 PM EST Orin Ahn MD LAB BLOOD ORDE RABLES Final Result Performing Organization Address [facility] de Phone Number [facility] [address] [place] [address] * Ferritin (12/10/2024 9:40 AM EST) Ferritin 40 13 - 150 ng/mL 12/10/2024 4:11 PM [facility] Blood ARM NEC / Unknown Venipuncture / Unknown 12/10/2024 9:40 AM EST 12/10/2024 3:14 PM EST Orin Ahn MD LAB BLOOD ORDE RABLES Final Result Performing Organization Address [facility] de Phone Number [facility] [address] [place] [address] * (ABNORMAL) Hepatic function panel (12/10/2024 9:40 AM EST) Total Bilirubin 0.9 <=1.2 mg/dL 12/11/19 4:11 PM [facility] Bilirubin, Direct 0.3(H) <=0.2 mg/dL 2024 4:11 PM [facility] Alkaline Phosphatase 76 9 - 122 U/L 12/10/2024 4:11 PM [facility] Alanine Aminotransferase (ALT) 44(H) 10 - 35 U/L 12/10/2024 4:11 PM [facility] Comment:Calcium dobesilate c an cause artificially low ALT results at therapeutic concentrations Aspartate Aminotransferase (AST) 25 10 - 35 U/L 12/10/2024 4:11 PM [facility] AST/ALT Ratio 0.6 Reference Range Not Established 12/10/2024 4:11 PM EST [facility] Total Protein 7.2 5.9 - 8.3 g/dL 025 4:11 PM [facility] Comment:As of 2024, th e reference interval for Total Protein has been changed from (6.6 to 8.7 g/dL) to (5.9 to 8.3 g/dL). Albumin 4.1 3.6 - 5.1 g/dL 12/10/2024 4:11 PM EST [facility] Comment:As of 2024, th e reference interval for Albumin has been changed from (3.6 to 4.9 g/dL) to (3.6 to 5.1 g/dL). Globulin 3.1 2.0 - 3.9 g/dL 12/10/2024 4:11 PM [facility] Comment:As of 2024, th e reference interval for Globulin has been changed from (2.3 to 3.5 g/dL) to (2.0 to 3.9 g/dL). A/G Ratio 1.3 1.0 - 2.2 12/10/2024 4:11 PM EST [facility] Blood ARM NEC / Unknown Venipuncture / Unknown 12/10/2024 9:40 AM EST 12/10/2024 3:14 PM EST Orin Ahn MD LAB BLOOD ORDCrystal KAUFMAN Final Result Performing Organization Address City/State/[facility] Co de Phone Number [facility] [address] [place] [address] * CT Abdomen Pelvis with IV Contrast without oral (BMI>25) (11/17/2024 5:28 PM EST) Anatomical Region Laterality Modality Abdomen, Pelvis, Ortho Pelvis, Abdomen and Pelvi s Computed Tomography 11/17/2024 5:37 PM EST Impressions 11/17/2024 6:10 PM EST No acute findings. Subcentimeter mesenteric lymph nodes are nonspecific. [facility] Classification: Routine. Report initiated by: ??José Antonio Burns MD Reported and signed by: Anali Da Silva MD [facility] Narrative 11/17/2024 6:10 [...] findings. Subcentimeter mesenteric lymph nodes are nonspecific. [facility] Classification: Routine. Report initiated by: José Antonio Burns MD Reported and signed by: Anali Da Silva MD [facility] John Styles MD [facility] [place] ORDERABLES Final Result * CXR (11/17/2024 5:23 PM EST) Anatomical Region Laterality Modality Chest Digital Radiogra phy 11/17/2024 5:24 PM EST Impressions 11/17/2024 5:26 PM EST No acute cardiothoracic abnormality. [facility] Classification: Routine. Report initiated by: ??Hanny Sanford MD, MS Reported and signed by: Anali Da Silva MD [facility] Narrative 11/17/2024 5:26 PM EST XR CHEST PA AND LATERAL INDICATION: chest pain COMPARISON: NONE FINDINGS: ?? The cardiomediastinal silhouette is within normal limits. No focal consolidation, pulmonary edema, pneumothorax, or pleural effusion. There is no acute displaced osseous injury. Right upper quadrant surgical clips. Procedure Note Anali Da Silva MD - 11/17/2024 XR CHEST PA AND LATERAL INDICATION: chest pain COMPARISON: NONE FINDINGS: The cardiomediastinal silhouette is within normal limits. No focal consolidation, pulmonary edema, pneumothorax, or pleuraleffusion. There is no acute displaced osseous injury. Right upper quadrant surgical clips. IMPRESSION: No acute cardiothoracic abnormality. [facility] Classification: Routine. Report initiated by: Hanny Sanford MD, MS Reported and signed by: Anali Da Silva MD [facility] John Styles MD [facility] ORDERABLES Final Result * (ABNORMAL) Comprehensive metabolic panel (11/17/2024 5:07 PM EST) Sodium 141 136 - 144 mmol/L 11/17/2024 6:13 PM EST [facility] Potassium 3.6 3.3 - 5.3 mmol/L 11/17/2024 6:13 PM EST [facility] Chloride 107 98 - 107 mmol/L 11/17/2024 6:13 PM EST [facility] CO2 20 20 - 30 mmol/L 11/17/2024 6:13 PM [facility] Anion Gap 14 7 - 17 11/17/2024 6:13 PM [facility] Glucose 83 70 - 100 mg/dL 11/17/2024 6:13 PM [facility] BUN 9 6 - 20 mg/dL 11/17/2024 6:13 PM [facility] Creatinine 0.99 0.40 - 1.30 mg/dL 11/17/2024 6:13 PM [facility] Calcium 8.9 8.8 - 10.2 mg/dL 11/17/2024 6:13 PM [facility] BUN/Creatinine Ratio 9.1 8.0 - 23.0 11/17/2024 6:13 PM [facility] Total Protein 7.3 5.9 - 8.3 g/dL 025 6:13 PM [facility] Comment:As of 2024, e reference interval for Total Protein has been changed from (6.6 to 8.7 g/dL) to (5.9 to 8.3 g/dL). Albumin 4.2 3.6 - 5.1 g/dL 11/17/2024 6:13 PM [facility] Comment:As of 2024, e reference interval for Albumin has been changed from (3.6 to 4.9 g/dL) to (3.6 to 5.1 g/dL). Total Bilirubin 0.6 <=1.2 mg/dL 11/17/19 25 6:13 PM [facility] Alkaline Phosphatase 133(H) 9 - 122 U/L 11/17/2024 6:13 PM [facility] Alanine Aminotransferase (ALT) 113(H) 10 - 35 U/L 11/17/2024 6:13 PM [facility] Comment:Calcium dobesilate c an cause artificially low ALT results at therapeutic concentrations Aspartate Aminotransferase (AST) 76(H) 10 - 35 U/L 11/17/2024 6:13 PM [facility] Globulin 3.1 2.0 - 3.9 g/dL 11/17/2024 6:13 PM [facility] Comment:As of 2024, e reference interval for Globulin has been changed from (2.3 to 3.5 g/dL) to (2.0 to 3.9 g/dL). A/G Ratio 1.4 1.0 - 2.2 11/17/2024 6:13 PM [facility] AST/ALT Ratio 0.7 Reference Range Not Established 11/17/2024 6:13 PM [facility] eGFR (Creatinine) >60 >=60 mL/min/1.73m2 11/17/2024 6:13 PM [facility] Comment: [facility] utilizes CKD-EPI Creatinine 2020 to report eGFR. Values < 60 mL/min/1.73 m2 may indicate CKD if present for more than three months AND creatinine is at steady state. The eGFR provides a rough estimate of kidney function. For further guidance, please refer to the CKD: Adult Special Delivery Carrier Signature pathway. Creatinine Delta 11/17/19 6:13 PM [facility] Comment:No previous creatini ne <5.00 mg/dL is available within the previous 12 months to calculate a delta creatinine. Blood Venipuncture / Unknown 11/17/2024 5:07 PM EST 11/17/2024 5:23 PM EST John Styles MD LAB BLOOD ORDERABLES Fi nal Result Performing Organization Address City/State/[facility] Co de Phone Number [facility] [address] [place] [address] * (ABNORMAL) CBC auto differential (11/17/2024 5:07 PM EST) WBC 7.4 4.0 - 11.0 x1000/??L 11/17/2024 5:32 PM EST [facility] RBC 4.79 4.00 - 6.00 M/??L 11/17/2024 5:32 PM EST [facility] Hemoglobin 12.8 11.7 - 15.5 g/dL 11/17/2024 5:32 PM [facility] Hematocrit 40.10 35.00 - 45.00 % 11/17/2024 5:32 PM [facility] MCV 83.7 80.0 - 100.0 fL 11/17/2024 5:32 PM [facility] MCH 26.7(L) 27.0 - 33.0 pg 11/17/2024 5:32 PM [facility] MCHC 31.9 31.0 - 36.0 g/dL 11/17/2024 5:32 PM [facility] RDW-CV 13.7 11.0 - 15.0 % 11/17/2024 5:32 PM [facility] Platelets 259 150 - 420 x1000/??L 11/17/2024 5:32 PM [facility] MPV 10.5 8.0 - 12.0 fL 11/17/2024 5:32 PM [facility] Neutrophils 36.8(L) 39.0 - 72.0 % 11/17/2024 5:32 PM [facility] Lymphocytes 44.2 17.0 - 50.0 % 11/17/2024 5:32 PM [facility] Monocytes 13.8(H) 4.0 - 12.0 % 11/17/2024 5:32 PM [facility] Eosinophils 4.2 0.0 - 5.0 % 11/17/2024 5:32 PM [facility] Basophil 0.5 0.0 - 1.4 % 11/17/2024 5:32 PM [facility] Immature Granulocytes 0.5 0.0 - 1.0 % 11/17/2024 5:32 PM [facility] nRBC 0.0 0.0 - 1.0 % 11/17/2024 5:32 PM [facility] Absolute Lymphocyte Count 3.27 0.60 - 3.70 x 1000/??L 11/17/2024 5:32 PM [facility] Monocyte Absolute Count 1.02(H) 0.00 - 1.00 x 1000/??L 11/17/2024 5:32 PM EST [facility] Eosinophil Absolute Count 0.31 0.00 - 1.00 x 1000/??L 11/17/2024 5:32 PM [facility] Basophil Absolute Count 0.04 0.00 - 1.00 x 1000/??L 11/17/2024 5:32 PM [facility] Absolute Immature Granulocyte Count 0.04 0.00 - 0.30 x 1000/??L 11/17/2024 5:32 PM [facility] Absolute nRBC 0.00 0.00 - 1.00 x 1000/??L 11/17/2024 5:32 PM [facility] ANC (Abs Neutrophil Count) 2.71 2.00 - 7.60 x 1000/??L 11/17/2024 5:32 PM EST [facility] Blood Venipuncture / Unknown 11/17/2024 5:07 PM EST 11/17/2024 5:23 PM EST John Styels MD LAB BLOOD ORDERABLES Fi nal Result [facility] [address] [place] [address] * Lipase (11/17/2024 5:07 PM EST) Pathologist [facility] Lipase 26 11 - 55 U/L 11/17/2024 5:57 PM EST [facility] Blood Venipuncture / Unknown 11/17/2024 5:07 PM EST 11/17/2024 5:23 PM EST John Styles MD LAB BLOOD ORDERABLES Fi nal Result [facility] [address] [place] [address] * POCT urine (11/17/2024 4:59 PM EST) Preg Test, Ur, POC Negative Negative [facility] Line in Control Window? (+ Control) Yes [facility] Background Clear? (- Control) Yes [facility] Kit Lot Number [id number] [facility] Expiration Date 03/04/2026 [facility] Urine URINE SPECIMEN / Unknown 11/17/2024 4:59 PM EST John Styles MD POINT OF CARE TEST ORDE SHAE Final Result [facility] [place], [place], [facility] * Lab Scan (10/20/2024 1:37 PM EST) Only the most recent of2 resultswithin the time period is included. Historical Provider LAB BLOOD ORDERABLES Final R esult from Last 3 Months Insurance Mau [place] mandie [place] [id number] [employer] [place] [employer] [address] [place] [facility] Care Teams Shell Mold Bonder Relationship Specialty Start Date End Date Xin Murray NP [address] [place] [phone] PCP - General 11/17/24
== END 2024-12-12 12:51 | disposition home or self-care (01) ==
PROVIDERS: PCP Pediatrics; Visit Provider Nurse Practitioner Family
DX: F41.1 Generalized anxiety disorder (principal); F33.1 Major depressive disorder, recurrent, moderate; F90.0 Attention-deficit hyperactivity disorder, predominantly inattentive type; G43.719 Chronic migraine without aura, intractable, without status migrainosus; R79.89 Other specified abnormal findings of blood chemistry; E66.811 Obesity, class 1; Z68.34 Body mass index [BMI] 34.0-34.9, adult

== ENCOUNTER → 2024-12-12 11:56 | Outpatient (BNVA) | payer OTHER, SELFPAY | PROVIDERS: PCP Pediatrics; Visit Provider Nurse Practitioner Family | DX: F41.1 Generalized anxiety disorder (principal); F33.1 Major depressive disorder, recurrent, moderate; F90.0 Attention-deficit hyperactivity disorder, predominantly inattentive type; G43.719 Chronic migraine without aura, intractable, without status migrainosus; R79.89 Other specified abnormal findings of blood chemistry; E66.811 Obesity, class 1; Z68.34 Body mass index [BMI] 34.0-34.9, adult | CPT/HCPCS: 96127 ==

== ENCOUNTER 2024-12-16 14:58 | Outpatient (AMB) | payer OTHER, SELFPAY ==
[2024-12-16 15:03] VITALS: BP 118/74; PULSE 85; O2SAT 99; BMI 35.2
--- NOTE | 2024-12-16 15:03 | A.OFFVIS_ITS ---
Vital Signs 12/16/24 15:03 Height 5 ft 1 in Weight 186 lb 6 oz BMI 35.2 BP 118/74 Pulse 85 Pulse Source Pulse Oximeter Pulse Oximetry (%) 99 Oxygen Delivery Method Room Air Intake Visit Reasons: Follow Up 3mo Intake Note: Patient presents for 3 month follow up. Sleep study in chart done on 11/25/23. Allergies budesonide [From Pulmicort] Allergy (Verified 12/16/24 15:17) Rash HPI Comments Details: 23-yr-old female presents for f/u visit. Pt denies any significant interval medical changes. She fell in 2012 and hit her head on the concrete, has had a change in personality since. HST was inconclusive- she still has snoring, daytime tiredness and sleep difficulties. She is not comfortable with having a PSG to evaluate her sleep, since she has difficulty sleeping in strange places of nightmares. Baseline headache characteristics: Severe, Pulling tightness in her mid-frontal- pressing/tightness pain a/w photophobia, phonophobia, nausea, occasionally vomiting, brain fog, dizziness, yawning, fatigue, activity intolerance. [facility] dx her with Cyclic Vomiting Episodes, and she will f/u with them for diarrhea 1x week, and constipation 3 x week, and blood in her stools. She has internal hemorrhoids on Colonoscopy Aug 2024 and gastritis on Endoscopy. Severe vomiting episodes with nausea for 48hours and she doesn't eat. She reports she continues to have migraines, 1-2 a month and better managed with Topiramate and Rizatriptan. Mood is depressed, she wakes up at 2am 1-2 x a month and cleans her room, feels manic because she has so much energy, she is trying to find a therapist. Her BMI is elevated, struggles with weight, drinks 64 ounces of water daily, drinks pedialyte 1-2 / week. [facility] with navigating through some difficult challenges. [facility] Medical History (Updated 12/16/24 @ 16:02 by Sadiq Boswell PA-C) Shingles Bipolar affect, depressed GERD (gastroesophageal reflux disease) Concussion Anxiety and depression Sleep difficulties Postprandial vomiting RLS (restless legs syndrome) Anemia Migraines Surgical History H/O eye surgery Hx of bilateral breast reduction surgery Hx of cholecystectomy Family History (Updated 12/12/24 @ 12:59 by Melinda Delgadillo MA) Mother Sleep apnea HTN (hypertension) High cholesterol Father Asthma Social History (Updated 12/12/24 @ 12:10 by Melinda Delgadillo MA) Household Members: Family Housing: House Are you a primary nonfarm animal caretaker to a significant other at home: No Do you presently have visiting nurse or other home services: No Alcohol intake: current Alcohol intake frequency: holidays/special occasions only Patient Tobacco Use Status: Never used Tobacco e-Cigarette/Vaping Use: Never Used Second Hand Smoke Exposure: No Substance Use Type: Marijuana service: No Current occupational status: employed 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 Cognitive needs: No Hearing needs: No Vision needs: Yes (wear glasses) Review of Systems ENT Reports Normal hearing present Neuro Reports Normal hearing present Physical Exam Const General: cooperative, comfortable and no acute distress Nutritional Appearance: average body habitus, obese (BMI is elevated ) and overweight Orientation/consciousness: patient oriented x3 Eyes Pupils: Equal, round and reactive pupils present Resp Effort & Inspection: normal respiratory effort and able to speak in complete sentences Neuro General: patient oriented x3 and moves all extremities Cranial nerves: Yes CN's II-XII intact bilaterally, Yes Facial sensation intact/muscles of mastication intact, Yes Equal, round and reactive pupils present, Yes Normal accommodation reflex present, Yes Bilaterally intact EOM present, Yes Nystagmus not present, Yes Normal facial strength present, Yes Midline tongue present, Yes Normal hearing present, Yes Ability to bilaterally rotate head present and Yes Ability to bilaterally elevate shoulders present Motor exam (neuro): 5/5 motor strength present throughout Deep tendon reflexes (DTR's): Right triceps reflex intensity grade: 2+, Left triceps reflex intensity grade: 2+, Rt Biceps (C5, C6): 2+, Left biceps reflex intensity grade: 2+, Right brachioradialis reflex intensity grade: 2+, Left brachioradialis reflex intensity grade: 2+, Right patellar reflex intensity grade: 2+ and Left patellar reflex intensity grade: 2+ Psych Appearance: grossly normal Mental Status: mental status grossly normal Affect: Labile affect present and Anxious affect present Attitude: cooperative and Avoids eye contact (attititude/behavior) Thought process: Normal thought process present Thought content: Normal thought content present Insight: Good insight present (Psych) Judgement: Good judgement present (Psych) Results Reviewed Results Reviewed: IMPRESSION: 1. This is a normal study. 2. There is no electrodiagnostic evidence for median neuropathy, ulnar neuropathy, brachial plexopathy, or cervical radiculopathy. CLINICAL COMMENT: Patient felt lightheaded after the test. Provided with water and crackers, observe for few minutes. She is feeling much better before discharge. Assessment & Plan Assessment & Plan (1) Fatigue due to sleep pattern disturbance: Code(s): R53.83 - Other fatigue; G47.9 - Sleep disorder, unspecified Category: Medical (2) MDD (major depressive disorder), recurrent episode: Code(s): F33.9 - Major depressive disorder, recurrent, unspecified Category: Medical Qualifiers: Major depression episode severity: moderate Qualified Code(s): F33.1 - Major depressive disorder, recurrent, moderate (3) ADHD (attention deficit hyperactivity disorder), inattentive type: Code(s): F90.0 - Attention-deficit hyperactivity disorder, predominantly inattentive type Category: Medical (4) Bipolar disorder with severe katheryn: Code(s): F31.13 - Bipolar disorder, current episode manic without psychotic features, severe Category: Medical (5) Sleep difficulties: Code(s): G47.9 - Sleep disorder, unspecified Category: Medical (6) Snoring: Code(s): R06.83 - Snoring Category: Medical (7) Excessive daytime sleepiness: Code(s): G47.19 - Other hypersomnia Category: Medical (8) Chronic migraine without aura: Code(s): G43.709 - Chronic migraine without aura, not intractable, without status migrainosus Category: Medical Qualifiers: Status migrainosus presence: without status migrainosus Intractability: intractable Qualified Code(s): G43.719 - Chronic migraine without aura, intractable, without status migrainosus Plan She needs ongoing therapy for depressed mood, anxiety and depression. Referral for Psychiatry is submitted. Meds to be managed by Psychiatrist: Venlafaxine, Wellbutrin , Adderall , Alprazolam Prn, Topiramate Obesity BMI is elevated, patient requested referral to Weight management and she discontinued Emgality. HST is inconclusive, she will do a PSG in the future if she feels more comfortable. Migraines improved with Rizatriptan and Topiramate, 1-2 x a month and well controlled. GI constipation and diarrhea f/u with her specialist at [place]. Psychiatrist Establish therapist and f/u care. Neuro-cognitive testing evaluation Mood disorders. MRI for evaluation of concussion. Labs to r/o deficiencies Orders: Orders Vitamin D 25-OH Total Today G47.9 - Sleep disorder, unspecified, R53.83 - Other fatigue Vitamin B12 and Folate Today G47.9 - Sleep disorder, unspecified, R53.83 - Other fatigue Homocysteine Today G47.9 - Sleep disorder, unspecified, R53.83 - Other fatigue IRON PROFILE Today G47.9 - Sleep disorder, unspecified, R53.83 - Other fatigue Methylmalonic Acid Today G47.9 - Sleep disorder, unspecified, R53.83 - Other fatigue Ferritin Today G47.9 - Sleep disorder, unspecified, R53.83 - Other fatigue Hemoglobin A1c Today G47.9 - Sleep disorder, unspecified, R53.83 - Other fatigue Referrals Neuropsychiatry Referral F31.13 - Bipolar disorder, current episode manic without psychotic features, severe, F90.0 - Attention-deficit hyperactivity disorder, predominantly inattentive type Medications: Refilled rizatriptan max 2 tabs per day or 4 tabs per week 5 - 10 mg (0.5 - 1 x 10 mg) PO Q2H 21 days PRN 12 tabs 3RF migraine headache Discontinued galcanezumab-gnlm (Emgality Pen) for 1st loading dose Discontinued Reason: Patient Refused 240 mg (2 mL) subcut ONCE 30 days 2 mL 0RF Patient Instructions: Polysomnography Study to evaluate for sleep Continue Migraine Meds F/U with MRI F/U with Neuro-cognitive testing Coding Level of Care Code Est Pt Level 4 (64800) Diagnoses Fatigue due to sleep pattern disturbance R53.83; G47.9 Moderate episode of recurrent major depressive disorder F33.1 Major depression episode severity: moderate ADHD (attention deficit hyperactivity disorder), inattentive type F90.0 Bipolar disorder with severe katheryn F31.13 Sleep difficulties G47.9 Snoring R06.83 Excessive daytime sleepiness G47.19 Intractable chronic migraine without aura and without status migrainosus G43.719 Status migrainosus presence: without status migrainosus Intractability: intractable Time Spent (min) 25 Comment Worsening
--- OUTSIDE RECORDS SUMMARY | 2024-12-16 18:17 | XMS_ITS | Encounter Summary ---
Author Organization [facility] Address [address] [place] [phone] Care Team Providers Care Law Firm Receptionist Name Role Phone Xin Murray NP Primary Care Provider [phone] Reason for Visit * Reason Onset Date Comments Other 12/08/2024 Medical records Encounter Details Date Type Department Care Team ([facility] Contact Info) Description 12/08/2024 Telephone [facility] at [address] [place] [address] [place] [id number] Orin Ahn MD [address] [place] [phone] Other (Medical records) Social History Tobacco [...] - 12/09/2024 12:02 PM EST Copied from [facility] #[id number]. Topic: General Inquiry - General Inquiry >> Dec 09, 2024 12:00 PM Christina Phillip wrote: I called Xiomara MARTINEZ [phone] left detailed message regarding fax request sent yesterday. Pt is scheduled for tomorrow with Dr. Ahn and will need records prior to visit or we'll need to r/s pt's appt. Pod:Bariatrics/Colorectal/Digestive (BCD) * Telephone Encounter - Christina Escobar - 12/08/2024 4:51 PM EST Copied from [facility] #[id number]. Topic: General Inquiry - General Inquiry >> Dec 08, 2024 4:50 PM Christina Phillip wrote: Per IB message from Jimy Covington Anamika Margaret Chudhury, MD P [facility] HealthScheduling; Dolores Grant This patient is a second opinion appointment. Please obtain imaging, endoscopic reports, labs, recent OV notes from MICHELLE Bobo at [facility]. Make sure that this info is in the chart before herappt on Sunday. If we cannot get this information before Sunday, the appointment should be rescheduled as I cannot formulate a plan without access to her extensive prior work-up. I faxed request to [facility] attn Viri Bobo, [place] fax [phone] direct tel#[phone] for the above requested records. Pod:Bariatrics/Colorectal/Digestive (BCD) documented in this encounter Plan of Treatment Upcoming Encounters Date Type Department Care Team ([facility] st Contact Info) Description 03/24/2025 9:30 AM EDT Office Visit [facility] at [address] [place] [phone] Orin Ahn MD [address] [place] [phone] documented as of this encounter Visit Diagnoses Not on filedocumented in this encounter Care Teams Law Firm Receptionist Relationship Specialty Start Date End Date Xin Murray NP [address] [place] [phone] PCP - General 11/17/24 documented as of this encounter
--- OUTSIDE RECORDS SUMMARY | 2024-12-16 18:17 | XMS_ITS | Encounter Summary ---
Author Organization [facility] Address [address] [place] [address] Care Team Providers Care Tube Machine Operator Helper Name Role Phone Xin Murray APRN Primary Care Provider + Encounter Details Date Type Department Care Team (Late st Contact Info) Description 10/22/2024 Scanned Document [address] [place] [phone] Provider, Generic Social History Tobacco Use Types [...] on filedocumented in this encounter Care Teams Tube Machine Operator Helper Relationship Specialty Start Date End Date Xin Murray APRN [address] [place] [phone] PCP - General Family Medicine 10/22/24 documented as of this encounter
--- OUTSIDE RECORDS SUMMARY | 2024-12-16 18:17 | XMS_ITS | Clinical Summary ---
Author Organization [address] Address [address] [place] [phone] Phone Care Team Providers Care Corporate Event Planner Name Role Phone Xin Murray NP Primary [...] Office Visit [facility] [address] [address] Orin Ahn MD Abnormal liver function tests (Primary Dx); Bilious vomiting with nausea; Rectal bleeding 12/09/2024 Scanned Document [facility] SCHEDULING [address] [place] [address] Provider, Historical 12/09/2024 Telephone EXTERNAL REFERRAL SOURCE 20 [place] [address] Xin Murray NP Other 12/08/2024 Telephone [facility] at [address] 40 [facility] [address] [place] [address] Orin Ahn MD Other (Medical records) 11/17/2024 2:47 PM EST - 11/17/2024 8:48 PM EST Emergency [facility] Emergency Department 20 [place] [address] John Styles MD Transaminitis (Primary Dx); Nonspecific [...] Office Visit [facility] [address] [phone] Orin Ahn MD [address] [place] [phone] Health Maintenance Due Date Last Done [...] liver function tests LIVER-KIDNEY MICROSOME ANTIBODY, IGG ( GH LMW Q YH) Routine 12/10/2024 9:40 AM EST Abnormal liver function tests SMOOTH MUSCLE AB SCREEN W/ RFLX TITER ( GH LMW YH) Routine 12/10/2024 9:40 AM EST [...] Months Results * Hepatitis A antibody, IgG (Y) (12/10/2024 9:40 AM EST) [facility] Hepatitis A Antibody, IgG Positive Negative 12/10/2024 11:03 PM EST [facility] Blood ARM NEC / Unknown Venipuncture / Unknown 12/10/2024 9:40 AM EST 12/10/2024 2:56 PM EST us Orin Ahn MD LAB BLOOD ORDCrystal KAUFMAN Final Result [facility] [address] [place] [address], [facility] [phone] * Smooth Muscle Ab Screen w/ Rflx Titer (BH GH LMW YH) (12/10/2024 9:40 AM EST) Pathologist [facility] SMOOTH MUSCLE AB SCREEN, S Negative Negative 12/12/2024 1:19 PM EST [facility] Comment: Negative: No further testing will be performed ADDITIONAL INFORMATION This test was developed and its performance characteristics determined by [facility] in a manner consistent with CLIA requirements. This test has not been cleared or approved by the U.S. Food and Drug Administration. Test Performed by: [facility] [address] [place] [address] Loft Worker Apprentice: Brayan Sorto Ph.D.; CLIA# [id number] Blood ARM NEC / Unknown Venipuncture / Unknown 12/10/2024 9:40 AM EST 12/10/2024 3:14 PM EST Orin Ahn MD LAB BLOOD ORDE SHAE Final Result [facility] * Mitochondria M2 antibody (IgG), EIA (12/10/2024 9:40 AM EST) Mitochondrial M2 Antibody, IgG 1.3 <4.0 U/mL 12/11/2024 7:15 PM EST [facility] Comment: Reference [...] this assay is being performed on the TranZfinity[employer] System with results reported quantitively by [employer]. Blood ARM NEC / Unknown Venipuncture / Unknown 12/10/2024 9:40 AM EST 12/10/2024 2:57 PM EST Orin Ahn MD LAB BLOOD ORDE SHAE Final Result Performing Organization Address [facility]/ZIP Co de Phone Number [facility] [address] [place] [address] * Liver-kidney microsome antibody, IgG (BH GH LMW Q YH) (12/10/2024 9:40 AM EST) Liver-Kidney Microsomal Ab, IgG <2.0 <=20.0 Units 12/11/2024 1:46 PM EST [facility] Comment: Reference [...] ORDE RABFRANCK Final Result Performing Organization Address City/[facility]/ZIP Co de Phone Number [facility] [address] [place] [address] * Hepatitis C Ab with reflex to HCV PCR (12/10/2024 9:40 AM EST) Hepatitis C Antibody Negative Negative 12/10/2024 6:37 PM EST [facility] Comment:A negative [...] EST Orin Ahn MD LAB BLOOD ORDE MICHELLEFRANCK Final Result Performing Organization Address [facility] Co de Phone Number [facility] [address] [place] [address] * Iron and TIBC (12/10/2024 9:40 AM EST) Iron 141 37 - 145 ug/dL 12/10/2024 4:11 PM EST [facility] Comment:In the presence of h igh ferritin concentrations >1200 ng/mL, the assumption that serum iron is almost completely bound to transferrin is no longer valid. Therefore, such iron results should not be used to calculate Total Iron Binding Capacity (TIBC) or percent transferrin saturation (%SAT). Iron Saturation 36 15 - 50 % 4:11 PM EST [facility] TIBC 394 250 - 450 ug/dL 12/10/2024 4:11 PM EST [facility] Blood ARM NEC / Unknown Venipuncture / Unknown 12/10/2024 9:40 AM EST 12/10/2024 3:14 PM EST Orin Ahn MD LAB BLOOD ORDE SHAE Final Result Performing Organization Address [facility] Co de Phone Number [facility] [address] [place] [address], [facility] [phone] * Hepatitis A antibody, IgM (12/10/2024 9:40 AM EST) Hepatitis A Antibody, IgM Negative Negative 12/10/2024 11:07 PM EST [facility] Blood ARM NEC / Unknown Venipuncture / Unknown 12/10/2024 9:40 AM EST 12/10/2024 2:56 PM EST Orin Ahn MD LAB BLOOD ORDE RABLES Final Result [facility] [address] [place] [address] * Ceruloplasmin (12/10/2024 9:40 AM EST) Ceruloplasmin 39 18 - 51 mg/dL 12/10/2024 4:07 PM EST [facility] Blood ARM NEC / Unknown Venipuncture / Unknown 12/10/2024 9:40 AM EST 12/10/2024 3:14 PM EST Orin Ahn MD LAB BLOOD ORDE RABLES Final Result Performing Organization Address City/[facility]/ZIP Co de Phone Number [facility] [address] [place] [address] * Hepatitis B core antibody, total (12/10/2024 9:40 AM EST) Hepatitis B Core Antibody, Total Negative Negative 12/10/2024 6:35 PM EST [facility] Blood ARM NEC / Unknown Venipuncture / Unknown 12/10/2024 9:40 AM EST 12/10/2024 2:56 PM EST Orin Ahn MD LAB BLOOD ORDE RABLES Final Result [facility] [address] [place] [address] * Hepatitis B surface antibody (BH GH L LMW YH) (12/10/2024 9:40 AM EST) Hepatitis B Surface Antibody <8.00 > or = 12 mIU/mL 12/10/2024 6:33 PM EST [facility] Comment: Patient [...] MD LAB BLOOD ORDE RABFRANCK Final Result [facility] [address] [place] [address] * Hepatitis B surface antigen (BH GH L LMW YH) (12/10/2024 9:40 AM EST) Pathologist [facility] Hepatitis B Surface Antigen Negative Negative 12/10/2024 6:36 PM EST [facility] Blood ARM NEC / Unknown Venipuncture / Unknown 12/10/2024 9:40 AM EST 12/10/2024 2:56 PM EST Orin Ahn MD LAB BLOOD ORDE RABLES Final Result [facility] [address] [place] [address] * DAVID IFA screen w/rflx titer and pattern, IFA (12/10/2024 9:40 AM EST) DAVID <1:80 <1:80 (Negative ) 12/11/2024 3:23 PM EST [facility] Comment: Specimen tested using a HEp-2 indirect immunofluorescent assay. Effective June 16, 2024, DAVID testing will be performed on the [employer] IFA platform. Please note; previous results may not directly correlate due to method change. Blood ARM NEC / Unknown Venipuncture / Unknown 12/10/2024 9:40 AM EST 12/10/2024 2:57 PM EST Orin hAn MD LAB BLOOD ORDE RABFRANCK Final Result Performing Organization Address [facility]/ZIP Co de Phone Number [facility] [address] [place] [address] * GAMMA GT (12/10/2024 9:40 AM EST) GGT 34 <48 U/L 12/10/2024 4:11 PM EST [facility] Blood ARM NEC / Unknown Venipuncture / Unknown 12/10/2024 9:40 AM EST 12/10/2024 3:14 PM EST Orin Ahn MD LAB BLOOD ORDE RABFRANCK Final Result Performing Organization Address [facility] de Phone Number [facility] [address] [place] [address] * Immunoglobulin G (12/10/2024 9:40 AM EST) Immunoglobulin G 1,241 700 - 1,600 mg/dL 12/10/2024 4:29 PM EST [facility] Blood ARM NEC / Unknown Venipuncture / Unknown 12/10/2024 9:40 AM EST 12/10/2024 3:14 PM EST Orin Ahn MD LAB BLOOD ORDE RABFRANCK Final Result Performing Organization Address [facility] Co de Phone Number [facility] [address] [place] [address] * Ferritin (12/10/2024 9:40 AM EST) Ferritin 40 13 - 150 ng/mL 12/10/2024 4:11 PM EST [facility] Blood ARM NEC / Unknown Venipuncture / Unknown 12/10/2024 9:40 AM EST 12/10/2024 3:14 PM EST Orin Ahn MD LAB BLOOD ORDE SHAE Final Result [facility] [address] [place] [address] * (ABNORMAL) Hepatic function panel (12/10/2024 9:40 AM EST) Total Bilirubin 0.9 <=1.2 mg/dL 12/11/19 25 4:11 PM [facility] Bilirubin, Direct 0.3(H) <=0.2 mg/dL 2024 4:11 PM [facility] Alkaline Phosphatase 76 9 - 122 U/L 12/10/2024 4:11 PM [facility] Alanine Aminotransferase (ALT) 44(H) 10 - 35 U/L 12/10/2024 4:11 PM [facility] Comment:Calcium dobesilate c an cause artificially low ALT results at therapeutic concentrations Aspartate Aminotransferase (AST) 25 10 - 35 U/L 12/10/2024 4:11 PM [facility] AST/ALT Ratio 0.6 Reference Range Not Established 12/10/2024 4:11 PM [facility] Total Protein 7.2 5.9 - 8.3 g/dL 025 4:11 PM [facility] Comment:As of 2024, th e reference interval for Total Protein has been changed from (6.6 to 8.7 g/dL) to (5.9 to 8.3 g/dL). Albumin 4.1 3.6 - 5.1 g/dL 12/10/2024 4:11 PM [facility] Comment:As of 2024, th e reference interval for Albumin has been changed from (3.6 to 4.9 g/dL) to (3.6 to 5.1 g/dL). Globulin 3.1 2.0 - 3.9 g/dL 12/10/2024 4:11 PM EST [facility] Comment:As of 2024, th e reference interval for Globulin has been changed from (2.3 to 3.5 g/dL) to (2.0 to 3.9 g/dL). A/G Ratio 1.3 1.0 - 2.2 12/10/2024 4:11 PM EST [facility] Blood ARM NEC / Unknown Venipuncture / Unknown 12/10/2024 9:40 AM EST 12/10/2024 3:14 PM EST us Orin Ahn MD LAB BLOOD ORDE SHAE Final Result [facility] [address] [place] [address], [facility] [phone] * CT Abdomen Pelvis with IV Contrast without oral (BMI>25) (11/17/2024 5:28 PM EST) Anatomical Region Laterality Modality Abdomen, Pelvis, Ortho Pelvis, Abdomen and Pelvi s Computed Tomography 11/17/2024 5:37 PM EST Impressions 11/17/2024 6:10 PM EST No acute findings. Subcentimeter mesenteric lymph nodes are nonspecific. [facility] Classification: Routine. Report initiated by: ??José Antonio Burns MD Reported and signed by: Anali Da Silva MD [facility] Narrative 11/17/2024 6:10 [...] findings. Subcentimeter mesenteric lymph nodes are nonspecific. [facility] Classification: Routine. Report initiated by: José Antonio Burns MD Reported and signed by: Anali Da Silva MD [facility] John Styles MD IMG CT ORDERABLES Final Result * CXR (11/17/2024 5:23 PM EST) Anatomical Region Laterality Modality Chest Digital Radiogra phy 11/17/2024 5:24 PM EST Impressions 11/17/2024 5:26 PM EST No acute cardiothoracic abnormality. [facility] Classification: Routine. Report initiated by: ??Hanny Sanford MD, MS Reported and signed by: Anali Da Silva MD [facility] Narrative 11/17/2024 5:26 [...] surgical clips. IMPRESSION: No acute cardiothoracic abnormality. [facility] Classification: Routine. Report initiated by: Hanny Sanford MD, MS Reported and signed by: Anali Da Silva MD [facility] John Styles MD IMG DIAGNOSTIC IMAGING ORDERABLES Final Result * (ABNORMAL) Comprehensive metabolic panel (11/17/2024 5:07 PM EST) Sodium 141 136 - 144 mmol/L 11/17/2024 6:13 PM [facility] Potassium 3.6 3.3 - 5.3 mmol/L 11/17/2024 6:13 PM [facility] Chloride 107 98 - 107 mmol/L 11/17/2024 6:13 PM [facility] CO2 20 20 - 30 mmol/L 11/17/2024 6:13 PM [facility] Anion Gap 14 7 - 17 11/17/2024 6:13 PM [facility] Glucose 83 70 - 100 mg/dL 11/17/2024 6:13 PM [facility] BUN 9 6 - 20 mg/dL 11/17/2024 6:13 PM [facility] Creatinine 0.99 0.40 - 1.30 mg/dL 11/17/2024 6:13 PM [facility] Calcium 8.9 8.8 - 10.2 mg/dL 11/17/2024 6:13 PM [facility] BUN/Creatinine Ratio 9.1 8.0 - 23.0 11/17/2024 6:13 PM [facility] Total Protein 7.3 5.9 - 8.3 g/dL 025 6:13 PM [facility] Comment:As of 2024, th e reference interval for Total Protein has been changed from (6.6 to 8.7 g/dL) to (5.9 to 8.3 g/dL). Albumin 4.2 3.6 - 5.1 g/dL 11/17/2024 6:13 PM [facility] Comment:As of 2024, th e reference interval for Albumin has been changed from (3.6 to 4.9 g/dL) to (3.6 to 5.1 g/dL). Total Bilirubin 0.6 <=1.2 mg/dL 11/17/19 25 6:13 PM [facility] Alkaline Phosphatase 133(H) 9 - 122 U/L 11/17/2024 6:13 PM [facility] Alanine Aminotransferase (ALT) 113(H) 10 - 35 U/L 11/17/2024 6:13 PM [facility] Comment:Calcium dobesilate c an cause artificially low ALT results at therapeutic concentrations Aspartate Aminotransferase (AST) 76(H) 10 - 35 U/L 11/17/2024 6:13 PM [facility] Globulin 3.1 2.0 - 3.9 g/dL 11/17/2024 6:13 PM [facility] Comment:As of 2024, e reference interval for Globulin has been changed from (2.3 to 3.5 g/dL) to (2.0 to 3.9 g/dL). A/G Ratio 1.4 1.0 - 2.2 11/17/2024 6:13 PM [facility] AST/ALT Ratio 0.7 Reference Range Not Established 11/17/2024 6:13 PM [facility] eGFR (Creatinine) >60 >=60 mL/min/1.73m2 11/17/2024 6:13 PM [facility] Comment: [facility] utilizes CKD-EPI Creatinine 2020 to report eGFR. Values < 60 mL/min/1.73 m2 may indicate CKD if present for more than three months AND creatinine is at steady state. The eGFR provides a rough estimate of kidney function. For further guidance, please refer to the CKD: Adult Social Worker Aide Signature pathway. Creatinine Delta 11/17/19 6:13 PM [facility] Comment:No previous creatini ne <5.00 mg/dL is available within the previous 12 months to calculate a delta creatinine. Blood Venipuncture / Unknown 11/17/2024 5:07 PM EST 11/17/2024 5:23 PM EST John Styles MD LAB BLOOD ORDERABLES Fi nal Result [facility] [address] [place] [address], [facility] [phone] * (ABNORMAL) CBC auto differential (11/17/2024 5:07 PM EST) Pathologist [facility] WBC 7.4 4.0 - 11.0 x1000/??L 11/17/2024 5:32 PM [facility] RBC 4.79 4.00 - 6.00 M/??L 11/17/2024 5:32 PM [facility] Hemoglobin 12.8 11.7 - 15.5 g/dL 11/17/2024 5:32 PM [facility] Hematocrit 40.10 35.00 - 45.00 % 11/17/2024 5:32 PM [facility] MCV 83.7 80.0 - 100.0 fL 11/17/2024 5:32 PM [facility] MCH 26.7(L) 27.0 - 33.0 pg 11/17/2024 5:32 PM [facility] MCHC 31.9 31.0 - 36.0 g/dL 11/17/2024 5:32 PM [facility] RDW-CV 13.7 11.0 - 15.0 % 11/17/2024 5:32 PM [facility] Platelets 259 150 - 420 x1000/??L 11/17/2024 5:32 PM [facility] MPV 10.5 8.0 - 12.0 fL 11/17/2024 5:32 PM [facility] Neutrophils 36.8(L) 39.0 - 72.0 % 11/17/2024 5:32 PM [facility] Lymphocytes 44.2 17.0 - 50.0 % 11/17/2024 5:32 PM [facility] Monocytes 13.8(H) 4.0 - 12.0 % 11/17/2024 5:32 PM [facility] Eosinophils 4.2 0.0 - 5.0 % 11/17/2024 5:32 PM [facility] Basophil 0.5 0.0 - 1.4 % 11/17/2024 5:32 PM [facility] Immature Granulocytes 0.5 0.0 - 1.0 % 11/17/2024 5:32 PM [facility] nRBC 0.0 0.0 - 1.0 % 11/17/2024 5:32 PM [facility] Absolute Lymphocyte Count 3.27 0.60 - 3.70 x 1000/??L 11/17/2024 5:32 PM [facility] Monocyte Absolute Count 1.02(H) 0.00 - 1.00 x 1000/??L 11/17/2024 5:32 PM [facility] Eosinophil Absolute Count 0.31 0.00 - 1.00 x 1000/??L 11/17/2024 5:32 PM [facility] Basophil Absolute Count 0.04 0.00 - 1.00 x 1000/??L 11/17/2024 5:32 PM [facility] Absolute Immature Granulocyte Count 0.04 0.00 - 0.30 x 1000/??L 11/17/2024 5:32 PM [facility] Absolute nRBC 0.00 0.00 - 1.00 x 1000/??L 11/17/2024 5:32 PM EST [facility] ANC (Abs Neutrophil Count) 2.71 2.00 - 7.60 x 1000/??L 11/17/2024 5:32 PM EST [facility] Blood Venipuncture / Unknown 11/17/2024 5:07 PM EST 11/17/2024 5:23 PM EST John Styles MD LAB BLOOD ORDERABLES Fi nal Result Performing Organization Address [facility] de Phone Number [facility] [address] [place] [address] * Lipase (11/17/2024 5:07 PM EST) Pathologist [facility] Lipase 26 11 - 55 U/L 11/17/2024 5:57 PM EST [facility] Blood Venipuncture / Unknown 11/17/2024 5:07 PM EST 11/17/2024 5:23 PM EST John Styles MD LAB BLOOD ORDERABLES Fi nal Result Performing Organization Address [facility] de Phone Number [facility] [address] [place] [address] * POCT urine (11/17/2024 4:59 PM EST) Preg Test, Ur, POC Negative Negative [facility] Line in Control Window? (+ Control) Yes [facility] Background Clear? (- Control) Yes [facility] Kit Lot Number [id number] [facility] Expiration Date 03/04/2026 [facility] Urine URINE SPECIMEN / Unknown 11/17/2024 4:59 PM EST John Styles MD POINT OF CARE TEST ORDE SHAE Final Result Performing Organization Address [facility]/State/ZIP Co de Phone Number [facility] [place], [place], [facility] * Lab Scan (10/20/2024 1:37 PM EST) Only the most recent of2 resultswithin the time period is included. us Historical Provider LAB BLOOD ORDERABLES Final R esult from Last 3 Months Insurance [address] [facility] [id number] [facility] [address] [facility] Care Teams Corporate Event Planner Relationship Specialty Start Date End Date Xin Murray NP [address] [place] [address] PCP - General 11/17/24
--- OUTSIDE RECORDS SUMMARY | 2024-12-16 18:17 | XMS_ITS | Clinical Summary ---
Author Organization [facility] Address [address] [place] [address] Care Team Providers Care Clinical Rn Manager Name Role Phone Braeden Murrayistin Deejay GLORIA [...] Maintenance, 09/18/24 5:20:00 PM EST, [id number], 84, TAKE 1 TABLET BY MOUTH EVERY [...] Description 10/22/2024 4:30 PM EST Office Visit [facility] [place] [address] [place] [address] Earl Celis MD [place], [place], [place] Viral URI with cough (Primary Dx) 10/22/2024 Scanned Document [facility] [address] [facility] [address] [place] [address] Provider, Generic 10/22/2024 Travel 10/22/2024 Scanned Document [facility] [address] [facility] [address] [place] [address] Provider, Generic from Last 3 Months [...] needs confirmation by PCR. Kit Lot Number [id number] Teletype Adjuster Pass Pass Swab, Nasal Specimen from nose / Unknown 10/22/2024 4:37 PM EST [facility] POINT OF CARE TEST O RDERABLES from Last 3 Months Care Teams Clinical Rn Manager Relationship Specialty Start Date End Date Xin Murray APRN [address] [place] [address] PCP - General Family Medicine 10/22/24
--- OUTSIDE RECORDS SUMMARY | 2024-12-16 18:17 | XMS_ITS | Encounter Summary ---
Author Organization [facility] Address [address] [place] [phone] Care Team Providers Care [employer] Name Role Phone Xin Murray NP Primary Care Provider [phone] Encounter Details Date Type Department Care Team (Late st Contact Info) Description 12/09/2024 Scanned Document [facility] SCHEDULING [address] [place], [place] [phone] Provider, Historical . Social History Tobacco Use [...] AM EDT Office Visit [facility] at [address] [place] [address] [phone] Orin Ahn MD [address] [place] [phone] documented as of this encounter Procedures [...] esult * Colonoscopy (09/03/2024 1:33 PM EST) [facility] Provider GI PROCEDURE ORDERABLES Laura l Result documented in this encounter Visit Diagnoses Not on filedocumented in this encounter Care Teams [employer] Relationship Specialty Start Date End Date Xin Murray NP [address] [place] [address] PCP - General 11/17/24 documented as of this encounter
--- OUTSIDE RECORDS SUMMARY | 2024-12-16 18:17 | XMS_ITS | Encounter Summary ---
Author Organization [facility] Address [address] [place] [address] Care Team Providers Care Heavy Repairer Name Role Phone Xin Murray SWAGING MACHINE OPERATOR Primary Care Provider [phone] Reason for Visit * Reason Onset Date Comments Other 12/09/2024 Encounter Details Date Type Department Care Team (Late st Contact Info) Description 12/09/2024 Telephone EXTERNAL REFERRAL SOURCE [address] [place] [address] Xin Murray, SWAGING MACHINE OPERATOR [address] [place] [address] Other Social History Tobacco Use Types Packs/Day [...] - 12/09/2024 1:27 PM EST Copied from [facility] #[id number]. Topic: General Inquiry - General Inquiry >> [...] Office Visit [facility] [address] [place], [place] [phone] Orin Ahn MD [address] [place] [address] documented as of this encounter Visit Diagnoses Not on filedocumented in this encounter Care Teams Heavy Repairer Relationship Specialty Start Date End Date Xin Murray NP [address] [place] [address] PCP - General 11/17/24 documented as of this encounter
--- OUTSIDE RECORDS SUMMARY | 2024-12-16 18:17 | XMS_ITS | Clinical Summary ---
Author Organization [facility] Address [address] [place] [address] Phone Care Team Providers Care Spout Worker Name Role Phone Marcia Grey MD Primary Care Provider [phone] Allergies No known active allergies Medications topiramate (TOPAMAX) 100 mg tabletIndication s:Other obesity due to excess calories TAKE 1 TABLET BY MOUTH 2 TIMES DAILY FOR 90 DAYS. 180 tablet 09/15/2024 Active Active Problems No known active problems Surgical History Surgery Date Site/Laterality Comments CHOLECYSTECTOMY [...] patient's age to complete this topic Insurance [facility] Care Teams Spout Worker Relationship Specialty Start Date End Date Marcia Grey MD [address] [place] [address] PCP - General 12/28/22
--- OUTSIDE RECORDS SUMMARY | 2024-12-16 18:17 | XMS_ITS | Clinical Summary ---
Author Organization [facility] Address [address] [place] [address] Care Team Providers Care Corporate Director Of Pharmacy Name Role Phone Marcia Grey MD Primary Care Provider [phone] Allergies Active Allergy Reactions Criticality Noted Date [...] age to complete this topic Care Teams Corporate Director Of Pharmacy Relationship Specialty Start Date End Date Marcia Grey MD [address] [place] [address] PCP - General Pediatrics 10/15/23
--- OUTSIDE RECORDS SUMMARY | 2024-12-16 18:17 | XMS_ITS | Encounter Summary ---
Author Organization [facility] Address [address] [place] [address] Care Team Providers Care Analyzer Sales Name Role Phone Xin Murray NP Primary Care Provider [phone] Reason for Referral * Imaging (Routine) - New Request Specialty Diagnoses / Procedures Referred By Bea shaw Referred To Contact Diagnoses Abnormal liver function tests Procedures US ABDOMEN COMPLETE Orin Ahn MD [address] [place] [phone] Phone: tel: fax: Referral ID Status Reason Start Date Expiration Date V isits Requested Visits Authorized [id number] New Request 12/10/2024 12/10/2025 1 1 Reason for Visit * Reason Comments Initial Evaluation New Patient Visit GI consult * Consultation (Urgent) - New Request Specialty Diagnoses / Procedures Referred By Bea shaw Referred To Contact Gastroenterology Diagnoses Transaminitis Steven Mooney MD [address] [facility] [address] [place] [address] Phone: tel: fax: [facility] [address] [facility] [address] [place] [address] Phone: tel: fax: Referral ID Status Reason Start Date Expiration Date Visits Requested Visits Authorized [id number] New Request Specialty Services Required 11/17/2024 11/17/2025 1 1 Encounter Details Date Type Department Care Team (Late st Contact Info) Description 12/10/2024 9:00 AM EST [facility] Visit [facility] [address] [place] [phone] Orin Ahn MD [address] [place] [phone] Abnormal liver function tests (Primary Dx); [...] from the original note were not included. [facility] NEW PATIENT OFFICE VISIT [...] relief. She was recently evaluated at the [facility], and was noted again to [...] hemorrhoids, between episodes. No regular use of [id number] supplements or alcohol, consuming alcohol only on [...] Resource Strain: Medium Risk (01/20/2022) Received from [facility] Financial Resource Strain Financial Concerns: 2 Transportation Needs: Unknown (12/15/2021) Received from [facility] Transportation Needs Lack of Transportation (Medical): 0 Physical Activity: Unknown (12/15/2021) Received from [facility] Physical Activity Calculated Minutes of Exercise per Week:: 0 Stress: Unknown (12/15/2021) Received from [facility] Stress Patient Reported Major Stressor(s): 0 Patient Reported Strengths: 1 Patient Reported Source(s) of Support: 1 Social Connections: Unknown (12/15/2021) Received from [facility] Social Connections Social Connection Calculated Score: 0 Housing Stability: Unknown (12/15/2021) Received from [facility] Housing Stability Housing Concerns: 0 Current Outpatient [...] panel; Future - Hepatitis B surface antibody ([facility]); Future - Hepatitis B surface antigen ([facility]); Future - Hepatitis B core antibody, total; Future - Ceruloplasmin; Future - DAVID IFA screen w/rflx titer and pattern, IFA; Future - Mitochondria M2 antibody (IgG), EIA; Future - Smooth Muscle Ab Screen w/ Rflx Titer ([facility]); Future - Liver-kidney microsome antibody, IgG ([facility]); Future - Immunoglobulin G; Future - Hepatitis A antibody, total ([facility]); Future - GAMMA GT; Future - Iron, TIBC and ferritin panel ([facility]); Future - Hepatitis C Ab with reflex to HCV PCR; Future - US ABDOMEN COMPLETE - Hepatic function panel - Hepatitis B surface antibody ( [facility]) - Hepatitis B surface antigen ([facility]) - Hepatitis B core antibody, total - Ceruloplasmin - DAVID IFA screen w/rflx titer and pattern, IFA - Mitochondria M2 antibody (IgG), EIA - Smooth Muscle Ab Screen w/ Rflx Titer ([facility]) - Liver-kidney microsome antibody, IgG ([facility]) - Immunoglobulin G - Hepatitis A antibody, total ([facility]) - GAMMA GT - Iron, TIBC and ferritin panel ([facility]) - Hepatitis C Ab [...] documented in this encounter Miscellaneous Notes * Result Encounter Note - Orin Ahn MD - 12/10/2024 9:00 AM EST LFT's improved. Serologies negative, * Addendum Note - Danis Stweart - 12/10/2024 9:00 AM ESTAddended by: DANIS STEWART on: 12/10/2024 07:45 PM Modules accepted: Orders documented in this encounter Plan of Treatment Upcoming Encounters Date Type Department Care Team (Late st Contact Info) Description 03/24/2025 9:30 AM EDT Office Visit [facility] [address] [address] Orin Ahn MD [address] [place] [phone] Scheduled Orders Name Type Priority Associated Diagnoses Orde r Schedule US ABDOMEN COMPLETE Imaging Routine Abnormal liver function tests Ordered: 12/10/2024 documented as of this encounter Procedures Procedure Name Priority Date/Time Associated Diagnosis Comments HEPATITIS A ANTIBODY, IGG ([facility]) Routine 12/10/2024 9:40 AM EST Abnormal liver function tests SMOOTH MUSCLE AB SCREEN W/ RFLX TITER ([facility]) Routine 12/10/2024 9:40 AM [...] IgM Negative Negative 12/10/2024 11:07 PM EST [facility] DEPARTMENT OF LABORATORY MEDICINE Blood ARM NEC / Unknown Venipuncture / Unknown 12/10/2024 9:40 AM EST 12/10/2024 2:56 PM EST Orin Ahn MD LAB BLOOD ORDE RABFRANCK Final Result Performing Organization Address City/[facility]/ZIP Co de Phone Number [facility] DEPARTMENT OF LABORATORY MEDICINE [address] [place] [address] * Hepatitis A antibody, IgG (Y) (12/10/2024 9:40 AM EST) Pathologist [facility] Hepatitis A Antibody, IgG Positive Negative 12/10/2024 11:03 PM EST [facility] DEPARTMENT OF LABORATORY MEDICINE Blood ARM NEC / Unknown Venipuncture / Unknown 12/10/2024 9:40 AM EST 12/10/2024 2:56 PM EST Orin Ahn MD LAB BLOOD ORDE SHAE Final Result [facility] DEPARTMENT OF LABORATORY MEDICINE [address] [place] [address] * Ferritin (12/10/2024 9:40 AM EST) Pathologist [facility] Ferritin 40 13 - 150 ng/mL 12/10/2024 4:11 PM EST [facility] DEPARTMENT OF LABORATORY MEDICINE Blood ARM NEC / Unknown Venipuncture / Unknown 12/10/2024 9:40 AM EST 12/10/2024 3:14 PM EST Orin Ahn MD LAB BLOOD ORDE SHAE Final Result Performing Organization Address [facility]/ZIP Co de Phone Number [facility] DEPARTMENT OF LABORATORY MEDICINE [address] [place] [address] * Iron and TIBC (12/10/2024 9:40 AM EST) Pathologist [facility] Iron 141 37 - 145 ug/dL 12/10/2024 4:11 PM EST [facility] DEPARTMENT OF LABORATORY MEDICINE Comment:In the presence of h igh ferritin concentrations >1200 ng/mL, the assumption that serum iron is almost completely bound to transferrin is no longer valid. Therefore, such iron results should not be used to calculate Total Iron Binding Capacity (TIBC) or percent transferrin saturation (%SAT). Iron Saturation 36 15 - 50 % 4:11 PM EST [facility] DEPARTMENT OF LABORATORY MEDICINE TIBC 394 250 - 450 ug/dL 12/10/2024 4:11 PM EST [facility] DEPARTMENT OF LABORATORY MEDICINE Blood ARM NEC / Unknown Venipuncture / Unknown 12/10/2024 9:40 AM EST 12/10/2024 3:14 PM EST Orin Ahn MD LAB BLOOD ORDCrystal KAUFMAN Final Result Performing Organization Address [facility] Co de Phone Number [facility] DEPARTMENT OF LABORATORY MEDICINE [address] [place] [address] * Hepatitis C Ab with reflex to HCV PCR (12/10/2024 9:40 AM EST) Pathologist [facility] Hepatitis C Antibody Negative Negative 12/10/2024 6:[address] [facility] DEPARTMENT OF LABORATORY MEDICINE Comment:A negative [...] EST 12/10/2024 2:56 PM EST us Orin Saniya Chudhury Jimy MD LAB BLOOD ORDE RABLES Final Result Performing Organization Address City/[facility]/ZIP Co de Phone Number [facility] LABORATORY MEDICINE [address] [place] [address] * GAMMA GT (12/10/2024 9:40 AM EST) GGT 34 <48 U/L 12/10/2024 4:11 PM EST [facility] DEPARTMENT OF LABORATORY MEDICINE Blood ARM NEC / Unknown Venipuncture / Unknown 12/10/2024 9:40 AM EST 12/10/2024 3:14 PM EST Orin Ahn MD LAB BLOOD ORDE RABLES Final Result Performing Organization Address [facility] Co de Phone Number [facility] DEPARTMENT OF LABORATORY MEDICINE [address] [place] [address] * Immunoglobulin G (12/10/2024 9:40 AM EST) Immunoglobulin G 1,241 700 - 1,600 mg/dL 12/10/2024 4:29 PM EST [facility] DEPARTMENT OF LABORATORY MEDICINE Blood ARM NEC / Unknown Venipuncture / Unknown 12/10/2024 9:40 AM EST 12/10/2024 3:14 PM EST Orin Ahn MD LAB BLOOD ORDE RABLES Final Result Performing Organization Address City/[facility] Co de Phone Number [facility] DEPARTMENT OF LABORATORY MEDICINE [address] [place] [address] * Liver-kidney microsome antibody, IgG ( GH LMW Q [facility]) (12/10/2024 9:40 AM EST) Liver-Kidney Microsomal Ab, IgG <2.0 <=20.0 Units 12/11/2024 1:46 PM EST [facility] DEPARTMENT OF LABORATORY MEDICINE Comment: Reference [...] ORDE SHAE Final Result Performing Organization Address City/State/[facility] Co de Phone Number [facility] DEPARTMENT OF LABORATORY MEDICINE [address] [place] [address] * Smooth Muscle Ab Screen w/ Rflx Titer ([facility]) (12/10/2024 9:40 AM EST) SMOOTH MUSCLE AB SCREEN, S Negative Negative 12/12/2024 1:19 PM EST [facility] Comment: Negative: No further testing will be performed ADDITIONAL INFORMATION This test was developed and its performance characteristics determined by [facility] in a manner consistent with CLIA requirements. This test has not been cleared or approved by the U.S. Food and Drug Administration. Test Performed by: [facility] - [address] [address] [place] Guide: Brayan Sorto Ph.D.; CLIA# [id number] Blood ARM NEC / Unknown Venipuncture / Unknown 12/10/2024 9:40 AM EST 12/10/2024 3:14 PM EST Orin Ahn MD LAB BLOOD ORDE RABLES Final Result Performing Organization Address [facility] de Phone Number [facility] * Mitochondria M2 antibody (IgG), EIA (12/10/2024 9:40 AM EST) Pathologist [facility] Mitochondrial M2 Antibody, IgG 1.3 <4.0 U/mL 12/11/2024 7:15 PM EST [facility] DEPARTMENT OF LABORATORY MEDICINE Comment: Reference [...] this assay is being performed on the sickweatherA System with results reported quantitively by [employer]. Blood ARM NEC / Unknown Venipuncture / Unknown 12/10/2024 9:40 AM EST 12/10/2024 2:57 PM EST Orin Ahn MD LAB BLOOD BALAJI KAUFMAN Final Result Performing Organization Address [facility] Co de Phone Number [facility] DEPARTMENT OF LABORATORY MEDICINE [address] [place] [address] * DAVID IFA screen w/rflx titer and pattern, IFA (12/10/2024 9:40 AM EST) [facility] DAVID <1:80 <1:80 (Negative ) 12/11/2024 3:23 PM EST [facility] DEPARTMENT OF LABORATORY MEDICINE Comment: Specimen tested using a HEp-2 indirect immunofluorescent assay. Effective June 16, 2024, DAVID testing will be performed on the [employer] IFA platform. Please note; previous results may not directly correlate due to method change. Blood ARM NEC / Unknown Venipuncture / Unknown 12/10/2024 9:40 AM EST 12/10/2024 2:57 PM EST Orin Ahn MD LAB BLOOD ORDE RABLES Final Result [facility] DEPARTMENT OF LABORATORY MEDICINE [address] [place] [address] * Ceruloplasmin (12/10/2024 9:40 AM EST) Ceruloplasmin 39 18 - 51 mg/dL 12/10/2024 4:07 PM EST [facility] DEPARTMENT OF LABORATORY MEDICINE Blood ARM NEC / Unknown Venipuncture / Unknown 12/10/2024 9:40 AM EST 12/10/2024 3:14 PM EST Orin Ahn MD LAB BLOOD ORDE RABLES Final Result Performing Organization Address [facility] Co de Phone Number [facility] DEPARTMENT OF LABORATORY MEDICINE [address] [place] [address] * Hepatitis B core antibody, total (12/10/2024 9:40 AM EST) Hepatitis B Core Antibody, Total Negative Negative 12/10/2024 6:35 PM EST [facility] DEPARTMENT OF LABORATORY MEDICINE Blood ARM NEC / Unknown Venipuncture / Unknown 12/10/2024 9:40 AM EST 12/10/2024 2:56 PM EST Orin Ahn MD LAB BLOOD ORDE RABFRANCK Final Result [facility] DEPARTMENT OF LABORATORY MEDICINE [address] [place] [address] * Hepatitis B surface antigen ([facility] L [facility]W [facility]) (12/10/2024 9:40 AM EST) Pathologist [facility] Hepatitis B Surface Antigen Negative Negative 12/10/2024 6:36 PM EST [facility] DEPARTMENT OF LABORATORY MEDICINE Blood ARM NEC / Unknown Venipuncture / Unknown 12/10/2024 9:40 AM EST 12/10/2024 2:56 PM EST Orin Ahn MD LAB BLOOD ORDE RABFRANCK Final Result Performing Organization Address [facility] de Phone Number [facility] DEPARTMENT OF LABORATORY MEDICINE [address] [place] [address] * Hepatitis B surface antibody ([facility]) (12/10/2024 9:40 AM EST) [facility] Hepatitis B Surface Antibody <8.00 > or = 12 mIU/mL 12/10/2024 6:33 PM EST [facility] DEPARTMENT OF LABORATORY MEDICINE Comment: Patient [...] ORDE SHAE Final Result Performing Organization Address [facility] de Phone Number [facility] DEPARTMENT OF LABORATORY MEDICINE [address] [place] [address] * (ABNORMAL) Hepatic function panel (12/10/2024 9:40 AM EST) [facility] Total Bilirubin 0.9 <=1.2 mg/dL 12/11/19 4:11 PM EST [facility] DEPARTMENT OF LABORATORY MEDICINE Bilirubin, Direct 0.3(H) <=0.2 mg/dL 2024 4:11 PM EST [facility] DEPARTMENT OF LABORATORY MEDICINE Alkaline Phosphatase 76 9 - 122 U/L 12/10/2024 4:11 PM EST [facility] DEPARTMENT OF LABORATORY MEDICINE Alanine Aminotransferase (ALT) 44(H) 10 - 35 U/L 12/10/2024 4:[address] [facility] DEPARTMENT OF LABORATORY MEDICINE Comment:Calcium dobesilate c an cause artificially low ALT results at therapeutic concentrations Aspartate Aminotransferase (AST) 25 10 - 35 U/L 12/10/2024 4:[address] [facility] DEPARTMENT OF LABORATORY MEDICINE AST/ALT Ratio 0.6 Reference Range Not Established 12/10/2024 4:[address] [facility] DEPARTMENT OF LABORATORY MEDICINE Total Protein 7.2 5.9 - 8.3 g/dL 025 4:[address] [facility] DEPARTMENT OF LABORATORY MEDICINE Comment:As of 2024, th e reference interval for Total Protein has been changed from (6.6 to 8.7 g/dL) to (5.9 to 8.3 g/dL). Albumin 4.1 3.6 - 5.1 g/dL 12/10/2024 4:[address] [facility] DEPARTMENT OF LABORATORY MEDICINE Comment:As of 2024, th e reference interval for Albumin has been changed from (3.6 to 4.9 g/dL) to (3.6 to 5.1 g/dL). Globulin 3.1 2.0 - 3.9 g/dL 12/10/2024 4:[address] [facility] DEPARTMENT OF LABORATORY MEDICINE Comment:As of 2024, th e reference interval for Globulin has been changed from (2.3 to 3.5 g/dL) to (2.0 to 3.9 g/dL). A/G Ratio 1.3 1.0 - 2.2 12/10/2024 4:[address] [facility] DEPARTMENT OF LABORATORY MEDICINE Blood ARM NEC / Unknown Venipuncture / Unknown 12/10/2024 9:40 AM EST 12/10/2024 3:14 PM EST us Orin Ahn MD LAB BLOOD ORDE SHAE Final Result [facility] DEPARTMENT OF LABORATORY MEDICINE [address] [place] [address], [facility] [phone] documented in this encounter Visit Diagnoses Diagnosis Abnormal liver function tests- Primary Other abnormal blood chemistry Bilious vomiting with nausea Rectal bleeding Hemorrhage of rectum and anus documented in this encounter Care Teams Analyzer Sales Relationship Specialty Start Date End Date Xin Murray NP [address] [place] [address] PCP - General 11/17/24 documented as of this encounter
--- OUTSIDE RECORDS SUMMARY | 2024-12-16 18:17 | XMS_ITS | Encounter Summary ---
Author Organization [facility] Address [address] [place] [phone] Care Team Providers Care Systems Developer Name Role Phone Xin Murray NP Primary Care Provider [phone] Reason for Referral * Consultation (Urgent) - New Request Specialty Diagnoses / Procedures Referred By Contac t Referred To Contact Gastroenterology Diagnoses Transaminitis Steven Mooney MD [address] [place] [address] [phone] [place] [address] Phone: tel: fax: [facility] [address] [facility] [address] [place] [address] Phone: tel: fax: Referral ID Status Reason Start Date Expiration Date Visits Requested Visits Authorized [id number] New Request Specialty Services Required 11/17/2024 11/17/2025 1 1 Reason for Visit * Reason Comments Abdominal Pain Intermittent RUQ abd pain x 1 year with N/V with intermittent diarrhea and constipation. Pt seen by GI outpatient and tested of h.pylori, colonoscopy, all came back negative. Pt scheduled to have another test outpatient. Pt seen at multiple hospitals in [place] for similar symptoms. Pt recommended by a GI MD Delaney to come to [place]. Poor Po intake. Hx pf gallbladder removal at 15 y.o. Encounter Details Date Type Department Care Team ([facility] Contact Info) Description 11/17/2024 2:47 PM EST - 11/17/2024 8:48 PM EST Emergency [facility] Emergency Department [address] [place] [phone] John Styles MD [address] [place] [phone] Transaminitis (Primary Dx); Nonspecific mesenteric lymphadenitis; [...] Care Everywhere. * Mesenteric Lymphadenitis Discharge Instructions (Serbian) * Severe Abdominal Pain (Serbian) documented in this encounter Medications at Time [...] outpatient. Pt seen at multiple hospitals in [place] for similar symptoms. Pt recommended by a GI MD Delaney to come to [place]. Poor Po intake. Hx pf gallbladder removal [...] outpatient. Pt seen at multiple hospitals in [place] for similar symptoms. Pt recommended by a GI MD Delaney to come to [place]. Poor Po intake. Hx pf gallbladder removal at 15 y.o. History of Present Illness The patient, with a history of cholecystectomy, presents with recurrent abdominal pain, vomiting, and diarrhea. The symptoms have been increasing in frequency and severity, to the point where she is unable to keep anything down. She has been under the care of a material combiner in [place], who has performed a colonoscopy and suggested further imaging studies, such as a CT scan or ultrasound. However, these have not yet been arranged. The material combiner has raised the possibility of Crohn's disease [...] patient, follows with GI Makayla Bobo at [facility], H.pylori, colonoscopy neg. CRP elevated, recommended CT [...] data reviewed: Labs Care limited by SDOH: Stucco Mason Access. Care limited due to: No primary care doctor Directly spoke with: Ship Unloader (GI-urgent follow-up) Physical Exam ED Triage Vitals [...] disease under consideration by GI specialist in [place]. Patient is not able to keep anything [...] on test results. -Consider referral to a material combiner if necessary. Electronically signed: Linda Rodriguez MD ([id number]) Obstetrics and Gynecology Best contact via MHB 11/17/24 7:12 PM I provided a concise overview of the ambient note generation solution. Melody Grover or their legally authorized patient representative verbally consented to a temporary audio [...] EDT Office Visit [facility] [address] [place] [phone] Orin Ahn MD [address] [place] [phone] Scheduled Referrals Name Type Priority Associated [...] findings. Subcentimeter mesenteric lymph nodes are nonspecific. [facility] Classification: Routine. Report initiated by: ??José Antonio Burns MD Reported and signed by: Anali Da Silva MD [facility] Narrative 11/17/2024 6:10 [...] findings. Subcentimeter mesenteric lymph nodes are nonspecific. [facility] Classification: Routine. Report initiated by: José Antonio Burns MD Reported and signed by: Anali Da Silva MD [facility] John Styles MD IMG CT ORDERABLES Final Result * CXR (11/17/2024 5:23 PM EST) Anatomical Region Laterality Modality Chest Digital Radiogra phy 11/17/2024 5:24 PM EST Impressions 11/17/2024 5:26 PM EST No acute cardiothoracic abnormality. [facility] Classification: Routine. Report initiated by: ??Hanny Sanford MD, MS Reported and signed by: Anali Da Silva MD [facility] Narrative 11/17/2024 5:26 [...] surgical clips. IMPRESSION: No acute cardiothoracic abnormality. [facility] Classification: Routine. Report initiated by: Hanny Sanford MD, MS Reported and signed by: Anali Da Silva MD [facility] John Styles MD [facility] ORDERABLES Final Result * (ABNORMAL) Comprehensive metabolic panel (11/17/2024 5:07 PM EST) Sodium 141 136 - 144 mmol/L 11/17/2024 6:13 PM [facility] Potassium 3.6 3.3 - 5.3 mmol/L 11/17/2024 6:13 PM [facility] Chloride 107 98 - 107 mmol/L 11/17/2024 6:13 PM [facility] CO2 20 20 - 30 mmol/L 11/17/2024 6:13 PM [facility] Anion Gap 14 7 - 17 11/17/2024 6:13 PM [facility] Glucose 83 70 - 100 mg/dL 11/17/2024 6:13 PM [facility] BUN 9 6 - 20 mg/dL 11/17/2024 6:13 PM [facility] Creatinine 0.99 0.40 - 1.30 mg/dL 11/17/2024 6:13 PM [facility] Calcium 8.9 8.8 - 10.2 mg/dL 11/17/2024 6:13 PM [facility] BUN/Creatinine Ratio 9.1 8.0 - 23.0 11/17/2024 6:13 PM [facility] Total Protein 7.3 5.9 - 8.3 g/dL 025 6:13 PM [facility] Comment:As of 2024, th e reference interval for Total Protein has been changed from (6.6 to 8.7 g/dL) to (5.9 to 8.3 g/dL). Albumin 4.2 3.6 - 5.1 g/dL 11/17/2024 6:13 PM [facility] Comment:As of 2024, th e reference interval for Albumin has been changed from (3.6 to 4.9 g/dL) to (3.6 to 5.1 g/dL). Total Bilirubin 0.6 <=1.2 mg/dL 11/17/19 6:13 PM [facility] Alkaline Phosphatase 133(H) 9 - 122 U/L 11/17/2024 6:13 PM [facility] Alanine Aminotransferase (ALT) 113(H) 10 - 35 U/L 11/17/2024 6:13 PM [facility] Comment:Calcium dobesilate c an cause artificially low ALT results at therapeutic concentrations Aspartate Aminotransferase (AST) 76(H) 10 - 35 U/L 11/17/2024 6:13 PM [facility] Globulin 3.1 2.0 - 3.9 g/dL 11/17/2024 6:13 PM [facility] Comment:As of 2024, e reference interval for Globulin has been changed from (2.3 to 3.5 g/dL) to (2.0 to 3.9 g/dL). A/G Ratio 1.4 1.0 - 2.2 11/17/2024 6:13 PM [facility] AST/ALT Ratio 0.7 Reference Range Not Established 11/17/2024 6:13 PM [facility] eGFR (Creatinine) >60 >=60 mL/min/1.73m2 11/17/2024 6:13 PM [facility] Comment: [facility] utilizes CKD-EPI Creatinine 2020 to report eGFR. Values < 60 mL/min/1.73 m2 may indicate CKD if present for more than three months AND creatinine is at steady state. The eGFR provides a rough estimate of kidney function. For further guidance, please refer to the CKD: Adult Stucc[employer] Mason Signature pathway. Creatinine Delta 11/17/19 6:13 PM [facility] Comment:No previous creatini ne <5.00 mg/dL is available within the previous 12 months to calculate a delta creatinine. Blood Venipuncture / Unknown 11/17/2024 5:07 PM EST 11/17/2024 5:23 PM EST us John Styles MD LAB BLOOD ORDERABLES Fi nal Result [facility]PART[facility] OF [facility]ATORY MEDICINE [address] [place] [address] * (ABNORMAL) CBC auto differential (11/17/2024 5:07 PM EST) WBC 7.4 4.0 - 11.0 x1000/??L 11/17/2024 5:32 PM [facility] RBC 4.79 4.00 - 6.00 M/??L 11/17/2024 5:32 PM [facility] Hemoglobin 12.8 11.7 - 15.5 g/dL 11/17/2024 5:32 PM [facility] Hematocrit 40.10 35.00 - 45.00 % 11/17/2024 5:32 PM [facility] MCV 83.7 80.0 - 100.0 fL 11/17/2024 5:32 PM [facility] MCH 26.7(L) 27.0 - 33.0 pg 11/17/2024 5:32 PM [facility] MCHC 31.9 31.0 - 36.0 g/dL 11/17/2024 5:32 PM [facility] RDW-CV 13.7 11.0 - 15.0 % 11/17/2024 5:32 PM [facility] Platelets 259 150 - 420 x1000/??L 11/17/2024 5:32 PM [facility] MPV 10.5 8.0 - 12.0 fL 11/17/2024 5:32 PM [facility] Neutrophils 36.8(L) 39.0 - 72.0 % 11/17/2024 5:32 PM [facility] Lymphocytes 44.2 17.0 - 50.0 % 11/17/2024 5:32 PM [facility] Monocytes 13.8(H) 4.0 - 12.0 % 11/17/2024 5:32 PM [facility] Eosinophils 4.2 0.0 - 5.0 % 11/17/2024 5:32 PM [facility] Basophil 0.5 0.0 - 1.4 % 11/17/2024 5:32 PM [facility] Immature Granulocytes 0.5 0.0 - 1.0 % 11/17/2024 5:32 PM [facility] nRBC 0.0 0.0 - 1.0 % 11/17/2024 5:32 PM [facility] Absolute Lymphocyte Count 3.27 0.60 - 3.70 x 1000/??L 11/17/2024 5:32 PM [facility] Monocyte Absolute Count 1.02(H) 0.00 - 1.00 x 1000/??L 11/17/2024 5:32 PM [facility] Eosinophil Absolute Count 0.31 0.00 - 1.00 x 1000/??L 11/17/2024 5:32 PM [facility] Basophil Absolute Count 0.04 0.00 - 1.00 x 1000/??L 11/17/2024 5:32 PM [facility] Absolute Immature Granulocyte Count 0.04 0.00 - 0.30 x 1000/??L 11/17/2024 5:32 PM [facility] Absolute nRBC 0.00 0.00 - 1.00 x 1000/??L 11/17/2024 5:32 PM [facility] ANC (Abs Neutrophil Count) 2.71 2.00 - 7.60 x 1000/??L 11/17/2024 5:32 PM [facility] Blood Venipuncture / Unknown 11/17/2024 5:07 PM EST 11/17/2024 5:23 PM EST us John Styles MD LAB BLOOD ORDERABLES Fi nal Result [facility]INE [address] [place] [address] * Lipase (11/17/2024 5:07 PM EST) Lipase 26 11 - 55 U/L 11/17/2024 5:57 PM EST [facility] Blood Venipuncture / Unknown 11/17/2024 5:07 PM EST 11/17/2024 5:23 PM EST John Styles MD LAB BLOOD ORDERABLES Fi nal Result [facility] [address] [place] [address] * POCT urine (11/17/2024 4:59 PM EST) Preg Test, Ur, POC Negative Negative [facility] Line in Control Window? (+ Control) Yes [facility] Background Clear? (- Control) Yes [facility] Kit Lot Number [id number] [facility] Expiration Date 03/04/2026 [facility] Urine URINE SPECIMEN / Unknown 11/17/2024 4:59 PM EST Result [facility] John Styles MD POINT OF CARE TEST ORDE RABFRANCK Final Result Performing Organization Address [facility] Co de Phone Number [facility] documented in this encounter Visit Diagnoses [...] headache, stomach upset, confusion., Pharmacist will implement [facility] Renal Dose Adjustment Protocol unless otherwise [...] headache, stomach upset, confusion., Pharmacist will implement [facility] Renal Dose Adjustment Protocol unless otherwise [...] Szymanski) documented in this encounter Care Teams Systems Developer Relationship Specialty Start Date End Date Xin Murray NP [address] [place] [phone] PCP - General 11/17/24 documented as of this encounter
--- OUTSIDE RECORDS SUMMARY | 2024-12-16 18:17 | XMS_ITS | Encounter Summary ---
Author Organization [facility] Address [address] [place] [address] Care Team Providers Care Journalism Instructor Name Role Phone Xin Murray APRN Primary Care Provider + Encounter Details Date Type Department Care Team (Late st Contact Info) Description 10/22/2024 Scanned Document [address] [place] [phone] Provider, Generic Social History Tobacco Use Types [...] on filedocumented in this encounter Care Teams Journalism Instructor Relationship Specialty Start Date End Date Xin Murray APRN [address] [place] [phone] PCP - General Family Medicine 10/22/24 documented as of this encounter
--- OUTSIDE RECORDS SUMMARY | 2024-12-16 18:18 | XMS_ITS | Clinical Summary ---
Author Organization [facility] '[facility] Address [address] [id number] Care Team Providers Care Administration Dean Name Role Phone Marcia Grey MD Primary Care Provider [phone] Source Comments Please note that some or [...] so, obtain the minor's consent prior to disclosure.[facility] All[facility] No known active allergies Medications [...] to complete this topic Insurance * Guarantor: OSAWLDO GROVER Account Type Relation to Patient Date of Phone Billing Address Personal/Family Father 1899 [address] [place] [address] MULTIPLAN Care Teams Administration Dean Relationship Specialty Start Date End Date Marcia Grey MD [address] [place] [address] PCP - General 07/14/14
== END 2024-12-16 15:54 | disposition home or self-care (01) ==
PROVIDERS: PCP Nurse Practitioner Family; Visit Provider Physician Assistant Medical
DX: R53.83 Other fatigue (principal); G47.9 Sleep disorder, unspecified; F33.1 Major depressive disorder, recurrent, moderate; F90.0 Attention-deficit hyperactivity disorder, predominantly inattentive type; F31.13 Bipolar disorder, current episode manic without psychotic features, severe; R06.83 Snoring; G47.19 Other hypersomnia; G43.719 Chronic migraine without aura, intractable, without status migrainosus
CPT/HCPCS: 99214

== ENCOUNTER 2024-12-18 08:09 | Outpatient (REF) | payer OTHER, SELFPAY ==
--- OUTSIDE RECORDS SUMMARY | 2024-12-18 08:31 | XMS_ITS | Encounter Summary ---
Author Organization [facility] Address [address] [place] [address] Care Team Providers Care Home Improvement Advisor Name Role Phone Xin Murray APRN Primary Care Provider + Encounter Details Date Type Department Care Team (Late st Contact Info) Description 10/22/2024 Scanned Document [address] [place] [phone] Provider, Generic Social History Tobacco Use Types [...] on filedocumented in this encounter Care Teams Home Improvement Advisor Relationship Specialty Start Date End Date Xin Murray APRN [address] [place] [phone] PCP - General Family Medicine 10/22/24 documented as of this encounter
--- OUTSIDE RECORDS SUMMARY | 2024-12-18 08:31 | XMS_ITS | Clinical Summary ---
Author Organization [facility] Address [address] [place] [address] Care Team Providers Care Concert Manager Name Role Phone Braeden Murrayistin Deejay [...] Maintenance, 09/18/24 5:20:00 PM EST, [id number], 84, TAKE 1 TABLET BY MOUTH EVERY [...] Description 10/22/2024 4:30 PM EST Office Visit [facility] [address] [place] [address] Earl Celis MD [place], [place], [place] Viral URI with cough (Primary Dx) 10/22/2024 Scanned Document [facility] [address] [facility] [address] [place] [phone] Provider, Generic 10/22/2024 Travel 10/22/2024 Scanned Document [facility] [address] [facility] [address] [place] [phone] Provider, Generic from Last 3 Months [...] needs confirmation by PCR. Kit Lot Number [id number] [facility] Hand Pass Pass Swab, Nasal Specimen from nose / Unknown 10/22/2024 4:37 PM EST [facility] POINT OF CARE TEST O RDERABLES from Last 3 Months Care Teams Concert Manager Relationship Specialty Start Date End Date Xin Murray APRN [address] [place] [phone] PCP - General Family Medicine 10/22/24
--- OUTSIDE RECORDS SUMMARY | 2024-12-18 08:31 | XMS_ITS | Clinical Summary ---
Author Organization [facility] Address [address] [place] [address] Phone Care Team Providers Care Fleet Assistant Name Role Phone Marcia Grey MD Primary Care Provider [phone] Allergies No known active allergies Medications topiramate [...] patient's age to complete this topic Insurance [facility] Care Teams Fleet Assistant Relationship Specialty Start Date End Date Marcia Grey MD [address] [place] [phone] PCP - General 12/28/22
--- OUTSIDE RECORDS SUMMARY | 2024-12-18 08:31 | XMS_ITS | Encounter Summary ---
Author Organization [facility] Address [address] [place] [address] Care Team Providers Care Audio Visual Secretary Name Role Phone Xin Murray APRN Primary Care Provider + Encounter Details Date Type Department Care Team (Late st Contact Info) Description 10/22/2024 Scanned Document [address] [place] [phone] Provider, Generic Social History Tobacco Use Types [...] on filedocumented in this encounter Care Teams Audio Visual Secretary Relationship Specialty Start Date End Date Xin Murray APRN [address] [place] [phone] PCP - General Family Medicine 10/22/24 documented as of this encounter
--- OUTSIDE RECORDS SUMMARY | 2024-12-18 08:31 | XMS_ITS | Clinical Summary ---
Author Organization [facility] Address [address] [id number] Care Team Providers Care Hazmat Technician Name Role Phone Marcia Grey MD Primary Care Provider [phone] Source Comments Please note that some or [...] Personal/Family Father 1899 [address] [place] [address] MULTIPLAN Care Teams Hazmat Technician Relationship Specialty Start Date End Date Marcia Grey MD [address] [place] [address] PCP - General 07/14/14
--- OUTSIDE RECORDS SUMMARY | 2024-12-18 08:31 | XMS_ITS | Clinical Summary ---
Author Organization [facility] Address [address] [place] [address] Care Team Providers Care Institutional Nutrition Consultant Name Role Phone Marcia Grey MD Primary Care Provider [phone] Allergies Active Allergy Reactions Criticality Noted Date [...] age to complete this topic Care Teams Institutional Nutrition Consultant Relationship Specialty Start Date End Date Marcia Grey MD [address] [place] [address] PCP - General Pediatrics 10/15/23
[2024-12-18 09:40] LABS: Hematocrit 37.7 % (37.0-47.0); Hemoglobin 11.8 g/dl (12.0-16.0); Mean Corpuscular HGB Conc 31.3 g/dl (31.0-35.0); Mean Corpuscular Hemoglobin 26.9 pg (27.0-33.0); Mean Corpuscular Volume 85.9 fL (80.0-98.0); Mean Platelet Volume 11.4 fL (9.4-12.3); Platelet Count 283 X10*3/uL (160-400); Red Blood Count 4.39 X10*6/uL (4.20-5.50); Red Cell Distribution Width 14.4 % (11.0-16.0); White Blood Count 8.2 X10*3/uL (4.8-10.8)
[2024-12-18 09:49] LABS: Estimated Average Glucose 91 mg/dL; Hemoglobin A1c % 4.8 % (<6.0)
[2024-12-18 10:08] LABS: Blood Urea Nitrogen 11 mg/dL (9-16); Estimated Glomerular Filt Rate > 60
[2024-12-18 10:25] LABS: Alanine Aminotransferase 36 U/L (0-31); Albumin Level 3.8 g/dL (3.5-5.0); Alkaline Phosphatase 65 U/L (39-117); Anion Gap 9 (12-20); Aspartate Amino Transferase 21 U/L (5-31); Bilirubin Total 0.4 mg/dL (0.0-1.0); Blood Urea Nitrogen 12 mg/dL (9-16); Calcium 8.7 mg/dL (8.4-10.2); Carbon Dioxide 18 mmol/L (22-29); Chloride 121 mmol/L (96-108); Estimated Glomerular Filt Rate > 60; Glucose Random 87 mg/dL (60-115); Iron 33 mcg/dL (30-160); Percent Iron Saturation 11 % (15-50); Potassium 3.7 mmol/L (3.3-5.1); Sodium 144 mmol/L (135-145); Total Iron Binding Capacity 314 mcg/dL (228-428); Total Protein 7.3 g/dL (6.5-8.0); Unsaturated Iron Binding 281 ug/dL
[2024-12-18 10:26] LABS: Ferritin 24 ng/mL (10-122)
[2024-12-18 10:33] LABS: TSH reflex Free T4 1.69 uIU/mL (0.32-4.0)
[2024-12-18 10:44] LABS: Folate 10.2 ng/mL (> or = 4.0); Vitamin B12 220 pg/mL (200-900)
[2024-12-19 17:18] LABS: Homocysteine 10.2 umol/L (<10.4)
[2024-12-23 03:08] LABS: Methylmalonic Acid 123 nmol/L (55-335)
[2024-12-24 09:38] LABS: Anti Nuclear Antibody Screen NEGATIVE (NEGATIVE)
== END 2024-12-18 08:10 | disposition home or self-care (01) ==
LOC: HO.LAB 08:09
PROVIDERS: Absent Provider Physician Assistant Medical; PCP Nurse Practitioner Family; Visit Provider Nurse Practitioner Family
DX: G47.9 Sleep disorder, unspecified (principal); R74.8 Abnormal levels of other serum enzymes; K21.9 Gastro-esophageal reflux disease without esophagitis; R53.83 Other fatigue; R10.11 Right upper quadrant pain; Z13.1 Encounter for screening for diabetes mellitus
CPT/HCPCS: 36415; 80053; 82306; 82565; 82607; 82728; 82746; 83036; 83090; 83540; 83921; 84443; 84520; 85027; 86038

== ENCOUNTER 2025-01-16 14:16 | Outpatient (AMB) | payer OTHER, SELFPAY ==
--- NOTE | 2025-01-16 14:17 | A.OFFPC_ITS ---
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 Property Manager Required: No Allergies budesonide [From Pulmicort] Allergy (Verified 01/16/25 15:04) Rash Medication List - Last Reconciled 01/16/25 by Xin Murray, [facility]- alprazolam 0.5 mg PO DAILY PRN bupropion HCl SR 150 mg PO DAILY dextroamphetamine-amphetamine 30 mg (Adderall) 30 mg PO DAILY famotidine (Pepcid) 20 mg PO BID 90 days ferrous gluconate 324 mg PO DAILY 90 days MDD 324 mg lansoprazole 30 mg PO DAILY NS levonorgestrel-ethinyl estrad 0.1-20 mg-mcg (Vienva) 1 tab PO DAILY ondansetron HCl mg PO DAILY rizatriptan 5 - 10 mg (0.5 - 1 x 10 mg) PO Q2H PRN 21 days sucralfate 1 g PO BEDTIME topiramate mg PO DAILY venlafaxine ER 75 mg PO DAILY Tobacco use date assessed: 01/16/25 Dental Screening Dental Screen Date: 01/16/25 Did you have a dental visit in the last 12 months?: Yes Did you have a dental problem in the last 6 months where you did not have access to dental care?: No Was dental information given to patient?: Patient has dentist HPI HPI Comments 2 History of Present Illness0 Details Hyun 24 y/o f with anemia, chronic migraine w ithout aura, generalized anxiety disorder with panic, major depressive disorder, obesity, RLS, elevated LFTs, IBS-C, aDHD Telehealth visit today to review reasonable accommodations at work: I have had a diagnosis of anxiety and pretty severe depression since I was about 14 years old. As you already know, I am currently on medication, and wanting to start counseling again, as well as find a new psychiatrist because I know I?m due for an updated evaluation. Which I know you and I are working to get done. The last therapist I went to wasn?t a good fit for me, but any past medical records from my old , or last psychiatrist should have paper work supporting all this information. I was also in a partial hospitalization program towards the end of 2020 for a couple weeks due to my depression. Since working at [employer] [facility] [employer] in [place] for the last three years, my depression and anxiety has felt a bit more manageable. My principal is well aware of my past issues, which is why prior to me being hired I was given a choice between kindergarten or special education, we all felt kindergarten would be better for me. And it really has been, I have been in the same classroom for the past three years and able to stay strictly in kindergarten. In the last couple days we have received some emails about the possibility of some staff being placed in different positions next year and since then my anxiety has just immediately increased. As previously discussed with my prior PC and therapists, consistency has always been a huge thing for me. Which was a big reason as to why I?ve really liked this job, I don?t have to worry about much changing, this was the position I was hired for. My prior PC was supposed to write something for me saying that since this job has become such a positive in my life. I mean no one here has said anything for sure, but I was wondering if you could write a note in regards to that and that keeping my current position and having that consistency of the sameness would be best in regards to my mental health issues. I work well with the teacher I?m with and the [facility] team as a whole. I know the curriculum and I?ve been able to take the class over on the days the primary care pediatrician isn?t able to be there. I?ve already started feeling on edge and nervous about all this, so I was hoping you could please help me with note until I can get a therapist or a new psychiatrist, or both. I don?t have anyone else to ask. In regards to med prescribing and counseling; she has not yet est care w/ a group. Below is the mssage sent to her today via the NN team. Info reviewed w/ her today. ADHD I sent IR and not ER FOREST SCIENCE PROFESSOR reviewed; she did not pick this up. I have sent Adderal ER 30mg to her pharmacy today which is the correct RX Otherwise, Feels exhausted all of the time outside of her norm Neuro note reviewed imaging ordered for this Plan Print letter and she will pick it up Sunday at the office. Watch and wait regarding fatigue; if no better consider additional workup. Neuro work up in progress Adderral ER refill sent FU with NN RTO as scheduled On 01/16/25 @ 15:35 Julieta Davey Wrote To Melody Grover Florentin Oliver, My name is Julieta Davey and I am a hospital social worker that works with your PCP Xin Murray. One of our Community Health Workers had attempted to contact you last month, but I wanted to provide you with some possible options for counseling/psychiatry. Right now, [facility] does not have it's own outpatient mental health services for individual therapy, but we do have a partnership with [facility]. You did note that consistency is hernández, so I do feel looking into a smaller group practice/private practice office may be a better fit since the community based organizations tend to have higher turnover rates. I can assist with facilitating a referral, but here are a few options if you wanted to look into these first before making a decision. All of these sites also offer telehealth options, as well. This is not an exhaustive list, but just a few options we could look into: [facility] [address] [facility], [place] [phone] [email or web address] [address] [place] [address] [email or web address] first [email or web address]/ [facility] [address] [place] [address] [email or web address]/ [facility] locations in [place], [place], [place], & [place] [email or web address] [facility] [address] [phone] [email or web address] Please feel free to message me back with any questions or concerns, Julieta Davey [facility] Time spent 25 minutes [facility] Medical History Shingles Bipolar affect, depressed GERD (gastroesophageal reflux disease) Concussion Anxiety and depression Sleep difficulties Postprandial vomiting RLS (restless legs syndrome) Anemia Migraines Surgical History H/O eye surgery Hx of bilateral breast reduction surgery Hx of cholecystectomy Family History Mother Sleep apnea HTN (hypertension) High cholesterol Father Asthma Social History Household Members: Family Both parents involved: Yes Caregiver staying overnight: No Housing: House Are you a primary director of primary care to a significant other at home: No Do you presently have visiting nurse or other home services: No 75 years or older and lives alone: No Alcohol intake: current Alcohol intake frequency: holidays/special occasions only Patient Tobacco Use Status: Never used Tobacco e-Cigarette/Vaping Use: Never Used Second Hand Smoke Exposure: No Substance Use Type: Marijuana service: No Current occupational status: employed 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 Jeff Stewart, Tonya Noel, Jean Carlos Nova and colleagues, with an educational funmi from [employer]. Physical exam (Primary Care) Tobacco/Smoking Status: Tobacco use Status Tobacco use date assessed 01/16/25 01/16/25 14:18 Patient Tobacco Use Status Never used Tobacco 01/16/25 14:18 e-Cigarette/Vaping Use Never Used 01/16/25 14:18 Thrive Assessment: Date of Thrive Assessment Date Thrive assessed 12/12/24 01/16/25 14:18 Telehealth Telehealth Telehealth Platform: [facility] Location of provider rendering services: practice address Location of patient: address on file Patient Identification confirmed using: Name, : Yes Telehealth method: voice only Patient verbally consented to treatment: Yes Patient verbally consented to billing insurance company: Yes Patient informed of any privacy concerns related to visit: Yes Minutes spent on Phone/Video with Pt.: 14 Coding Level of Care Code Tele Est Pt Level 3 (14143) Complex EM visit Add On G2211 Diagnoses ADHD (attention deficit hyperactivity disorder), inattentive type F90.0 REGGIE (generalized anxiety disorder) F41.1 Moderate episode of recurrent major depressive disorder F33.1 Major depression episode severity: moderate Excessive daytime sleepiness G47.19 Assessment & Plan Assessment & Plan (1) ADHD (attention deficit hyperactivity disorder), inattentive type: Code(s): F90.0 - Attention-deficit hyperactivity disorder, predominantly inattentive type Category: Medical (2) REGGIE (generalized anxiety disorder): Code(s): F41.1 - Generalized anxiety disorder Category: Medical (3) MDD (major depressive disorder), recurrent episode: Code(s): F33.9 - Major depressive disorder, recurrent, unspecified Category: Medical Qualifiers: Major depression episode severity: moderate Qualified Code(s): F33.1 - Major depressive disorder, recurrent, moderate (4) Excessive daytime sleepiness: Code(s): G47.19 - Other hypersomnia Category: Medical Plan . Medications: New 2 dextroamphetamine-amphetamine 30 mg ER (Adderall XR) Partial Fill upon patient request. 30 mg PO DAILY 90 caps 0RF Discontinued 2 dextroamphetamine-amphetamine 30 mg (Adderall) Discontinued Reason: Entered in error 30 mg PO DAILY 30 tabs 0RF
--- OUTSIDE RECORDS SUMMARY | 2025-01-16 14:35 | XMS_ITS | Encounter Summary ---
Author Organization [facility] Address [address] [place] [address] Care Team Providers Care Recording Studio Internship Name Role Phone Xin Murray NP Primary Care Provider [phone] Encounter Details Date Type Department Care Team (Late st Contact Info) Description 01/14/2025 8:10 PM EDT Hospital Encounter [facility] FILE ROOM [address] [place] [address] Orin Ahn MD [address] [place] [phone] Arrived Social History Tobacco Use Types Packs/Day Years Used Date Smoking Tobacco: Never Alcohol Use Standard Drinks/Week Comments Yes 0 [...] EDT Office Visit [facility] [address] [place] [phone] Orin Ahn MD [address] [place] [phone] documented as of this encounter Procedures Procedure Name Priority Date/Time Associated Diagnosis Comments [facility] US ABDOMEN VIEWS Routine 12/12/2024 8:11 PM EST documented in this encounter Results * [facility] US Abdomen Views (12/12/2024 8:11 PM EST) Narrative RAD4 - 01/14/2025 8:11 PM EDT DISCLAIMER ??This procedure captures images only. ??There is no report. us Orin Ahn MD IMG [facility] NON RE P ORDERABLES Final Result RAD4 documented in this encounter Visit Diagnoses Not on filedocumented in this encounter Care Teams Recording Studio Internship Relationship Specialty Start Date End Date Xin Murray NP [address] [place] [phone] PCP - General 11/17/24 documented as of this encounter
--- OUTSIDE RECORDS SUMMARY | 2025-01-16 14:35 | XMS_ITS | Encounter Summary ---
Author Organization [facility] Address [address] [place] [address] Care Team Providers Care Clinical Genetics Laboratory Chief Name Role Phone Xin Murray APRN Primary Care Provider + Encounter Details Date Type Department Care Team (Late st Contact Info) Description 10/22/2024 Scanned Document [address] [place] [phone] Provider, Generic Social History Tobacco Use Types [...] on filedocumented in this encounter Care Teams Clinical Genetics Laboratory Chief Relationship Specialty Start Date End Date Xin Murray APRN [address] [place] [phone] PCP - General Family Medicine 10/22/24 documented as of this encounter
--- OUTSIDE RECORDS SUMMARY | 2025-01-16 14:35 | XMS_ITS | Clinical Summary ---
Author Organization [facility] Address [address] [phone] Care Team Providers Care Medical Asst Name Role Phone Marcia Grey MD Primary Care Provider [phone] Source Comments Please note that some or [...] so, obtain the minor's consent prior to disclosure.[facility] Allergies No known active allergies Medications [...] Personal/Family Father 1899 [address] [place] [address] MULTIPLAN Care Teams Medical Asst Relationship Specialty Start Date End Date Marcia Grey MD [address] [place] [address] PCP - General 07/14/14
--- OUTSIDE RECORDS SUMMARY | 2025-01-16 14:35 | XMS_ITS | Clinical Summary ---
Author Organization [facility] Address [address] [place] [address] Care Team Providers Care Professor Of Spanish Name Role Phone Marcia Grey MD Primary Care Provider Allergies Active Allergy Reactions Criticality Noted Date [...] age to complete this topic Care Teams Professor Of Spanish Relationship Specialty Start Date End Date Macria Grey MD [address] [place] [address] PCP - General Pediatrics 10/15/23
--- OUTSIDE RECORDS SUMMARY | 2025-01-16 14:35 | XMS_ITS | Encounter Summary ---
Author Organization [facility] Address [address] [place] [address] Care Team Providers Care Supervisor Adult Education Name Role Phone Xin Murray APRN Primary Care Provider + Encounter Details Date Type Department Care Team (Late st Contact Info) Description 10/22/2024 Scanned Document [address] [place] [phone] Provider, Generic Social History Tobacco Use Types [...] on filedocumented in this encounter Care Teams Supervisor Adult Education Relationship Specialty Start Date End Date Xin Murray APRN [address] [place] [phone] PCP - General Family Medicine 10/22/24 documented as of this encounter
--- OUTSIDE RECORDS SUMMARY | 2025-01-16 14:35 | XMS_ITS | Clinical Summary ---
Author Organization [facility] Address [address] [place] [address] Care Team Providers Care Stamp Presser Name Role Phone Braeden Murrayistin Deejay GLORIA [...] Maintenance, 09/18/24 5:20:00 PM EST, [facility], 84, TAKE 1 TABLET BY MOUTH EVERY [...] Description 10/22/2024 4:30 PM EST Office Visit [facility] [address] [place] [address] Earl Celis MD [place], [place], [place] Viral URI with cough (Primary Dx) 10/22/2024 Scanned Document [facility] [address] [facility] [address] [place] [phone] Provider, Generic 10/22/2024 Travel 10/22/2024 Scanned Document [facility] [address] [facility] [address] [place] [phone] Provider, Generic from Last 3 Months [...] needs confirmation by PCR. Kit Lot Number [id number] Lead Ramp Agent Pass Pass Swab, Nasal Specimen from nose / Unknown 10/22/2024 4:37 PM EST [place] DEE POINT OF CARE TEST O RDERABLES from Last 3 Months Care Teams Stamp Presser Relationship Specialty Start Date End Date Xin Murray APRN [address] [place] [phone] PCP - General Family Medicine 10/22/24
--- OUTSIDE RECORDS SUMMARY | 2025-01-16 14:35 | XMS_ITS | Clinical Summary ---
Author Organization [facility] Address [address] [place] [address] Phone Care Team Providers Care Printing Assistant Name Role Phone Marcia Grey MD Primary Care Provider [phone] Allergies No known active allergies Medications topiramate [...] 2023-2 5 season) 2024 10/05/2021 Influenza Vaccine (Season Ended) 2025 HIB Vaccines Aged Out No longer eligi [...] age to complete this topic Meningococcal B Vaccine Aged Out No l onger eligible based on patient's age to complete this topic RSV Immunization Patients Un bianca 20 months Aged Out No longer eligible b ased on patient's age to complete this topic Varicella Vaccines Aged Out No longer eligible based on patient's age to complete this topic Insurance [facility] Care Teams Printing Assistant Relationship Specialty Start Date End Date Marcia Grey MD [address] [place] [phone] PCP - General 12/28/22
--- OUTSIDE RECORDS SUMMARY | 2025-01-16 14:35 | XMS_ITS | Encounter Summary ---
Author Organization [facility] Address [address] [place] [phone] Care Team Providers Care Acquisition Specialist Name Role Phone Xin Murray NP Primary Care Provider [phone] Encounter Details Date Type Department Care Team (Late st Contact Info) Description 12/09/2024 Scanned Document [facility] SCHEDULING [address] [place] [address] Provider, Historical . Social History Tobacco Use [...] AM EDT Office Visit [facility] at [address] [place] [phone] Orin Ahn MD [address] [place] [phone] documented as of this encounter Procedures [...] esult * Colonoscopy (09/03/2024 1:33 PM EST) [facility] Provider GI PROCEDURE ORDERABLES Laura l Result documented in this encounter Visit Diagnoses Not on filedocumented in this encounter Care Teams Acquisition Specialist Relationship Specialty Start Date End Date Xin Murray NP [address] [place] [phone] PCP - General 11/17/24 documented as of this encounter
--- OUTSIDE RECORDS SUMMARY | 2025-01-16 14:35 | XMS_ITS | Clinical Summary ---
Author Organization [address] Address [address] [place] [phone] Phone Care Team Providers Care Document Management Specialist Name Role Phone Xin Murray NP Primary Care Provider [phone] [id number] Medications famotidine (PEPCID) 20 mg tablet Take 1 tablet (20 mg total) by mouth 2 (two) times daily. 30 tablet 11/17/2024 Active ondansetron (ZOFRAN) 4 mg tablet Take 2 tablets (8 mg total) by mouth every 8 (eight) hours as needed for nausea. 12 tablet 11/17/2024 Active ondansetron (ZOFRAN) 8 mg tabletIndicatio ns:Bilious vomiting with nausea Take 1 tablet (8 mg total) by mouth every 12 (twelve) hours as needed for nausea or vomiting. 60 tablet 2 12/10/2024 Active Encounters Date Type Department Care Team Description 01/14/2025 8:10 PM EDT Hospital Encounter [facility] FILE ROOM [address] [place] [address] Orin Ahn MD Arrived 12/10/2024 9:00 AM EST Office Visit [facility] [address] [phone] Orin Ahn MD Abnormal liver function tests (Primary Dx); Bilious vomiting with nausea; Rectal bleeding 12/09/2024 Scanned Document [facility] SCHEDULING [address] [place] [address] Provider, Historical 12/09/2024 Telephone EXTERNAL REFERRAL SOURCE 20 [place] [address] Xin Murray NP Other 12/08/2024 Telephone [facility] 40 [facility] [address] [facility] [address] [place] [address] Orin Ahn MD Other (Medical records) 11/17/2024 2:47 PM EST - 11/17/2024 8:48 PM EST Emergency [facility] Emergency Department 20 [place] [address] John Styles MD Transaminitis (Primary Dx); Nonspecific [...] Office Visit [facility] 8 [facility] 8 [place], [place] [id number] Orin Ahn MD [address] [place] [phone] Health Maintenance Due Date Last Done Comments [...] 10,TDAP once) 2020 Cervical cancer screening 2021 Covid-19 vaccine series (1 - 2023- season) 2024 Influenza vaccine 06/08/2025 RSV Immunization (1 - 1-dose 75+ series) 2075 Hepatitis C screening Completed 12/10/2024 [...] ABDOMEN VIEWS Routine 12/12/2024 8:11 PM EST HEPATITIS A ANTIBODY, IGM Routine 12/10/2024 9:40 AM EST Abnormal liver function tests HEPATITIS A ANTIBODY, IGG (BH GH LMW YH) Routine 12/10/2024 9:40 [...] liver function tests HEPATITIS B SURFACE ANTIGEN ( GH L LMW YH) Routine 12/10/2024 9:40 AM EST Abnormal liver function tests HEPATITIS B SURFACE ANTIBODY ( GH L LMW YH) Routine 12/10/2024 9:40 [...] EST from Last 3 Months Results * [facility] US Abdomen Views (12/12/2024 8:11 PM EST) Narrative RAD4 - 01/14/2025 8:11 PM EDT DISCLAIMER ??This procedure captures images only. ??There is no report. us Orin Ahn MD IMG [facility] NON RE P ORDERABLES Final Result RAD4 * Hepatitis A antibody, IgG () (12/10/2024 9:40 AM EST) Hepatitis A Antibody, IgG Positive Negative 12/10/2024 11:03 PM EST [facility] DEPARTMENT OF LABORATORY MEDICINE Blood ARM NEC / Unknown Venipuncture / Unknown 12/10/2024 9:40 AM EST 12/10/2024 2:56 PM EST us Orin Ahn MD LAB BLOOD ORDE SHAE Final Result [facility] DEPARTMENT OF LABORATORY MEDICINE [address] [place] [address], [facility] [phone] * Smooth Muscle Ab Screen w/ Rflx Titer (BH GH LMW YH) (12/10/2024 9:40 AM EST) SMOOTH MUSCLE AB SCREEN, S Negative Negative 12/12/2024 1:19 PM EST [facility] Comment: Negative: No further testing will be performed ADDITIONAL INFORMATION This test was developed and its performance characteristics determined by [facility] in a manner consistent with CLIA requirements. This test has not been cleared or approved by the U.S. Food and Drug Administration. Test Performed by: [facility] [place] [address] Product Safety Officer: Brayan Sorto Ph.D.; CLIA# [id number] Blood ARM NEC / Unknown Venipuncture / Unknown 12/10/2024 9:40 AM EST 12/10/2024 3:14 PM EST Orin Ahn MD LAB BLOOD ORDCrystal KAUFMAN Final Result [facility] * Mitochondria M2 antibody (IgG), EIA (12/10/2024 9:40 AM EST) Mitochondrial M2 Antibody, IgG 1.3 <4.0 U/mL 12/11/2024 7:15 PM EST [facility] DEPARTMENT OF LABORATORY MEDICINE Comment: Reference [...] this assay is being performed on the [employer] ANDRES System with results reported quantitively by [employer]. Blood ARM NEC / Unknown Venipuncture / Unknown 12/10/2024 9:40 AM EST 12/10/2024 2:57 PM EST Orin Ahn MD LAB BLOOD ORDE SHAE Final Result [facility] DEPARTMENT OF LABORATORY MEDICINE [address] [place] [address] * Liver-kidney microsome antibody, IgG (BH GH LMW Q YH) (12/10/2024 9:40 AM EST) Liver-Kidney Microsomal Ab, IgG <2.0 <=20.0 Units 12/11/2024 1:46 PM EST [facility] DEPARTMENT OF LABORATORY MEDICINE Comment: Reference [...] ORDCrystal KAUFMAN Final Result Performing Organization Address [facility] Co de Phone Number [facility] DEPARTMENT OF LABORATORY MEDICINE [address] [place] [address] * Hepatitis C Ab with reflex to HCV PCR (12/10/2024 9:40 AM EST) Pathologist [facility] Hepatitis C Antibody Negative Negative 12/10/2024 6:37 PM EST [facility] DEPARTMENT OF LABORATORY MEDICINE Comment:A negative [...] BALAJI KAUFMAN Final Result Performing Organization Address [facility] de Phone Number [facility] DEPARTMENT OF LABORATORY MEDICINE [address] [place] [address] * Iron and TIBC (12/10/2024 9:40 AM EST) [facility] Iron 141 37 - 145 ug/dL 12/10/2024 4:11 PM EST [facility] DEPARTMENT OF LABORATORY MEDICINE Comment:In the presence of h igh ferritin concentrations >1200 ng/mL, the assumption that serum iron is almost completely bound to transferrin is no longer valid. Therefore, such iron results should not be used to calculate Total Iron Binding Capacity (TIBC) or percent transferrin saturation (%SAT). Iron Saturation 36 15 - 50 % 4:11 PM EST [facility] DEPARTMENT OF LABORATORY MEDICINE TIBC 394 250 - 450 ug/dL 12/10/2024 4:11 PM EST [facility] DEPARTMENT OF LABORATORY MEDICINE Blood ARM NEC / Unknown Venipuncture / Unknown 12/10/2024 9:40 AM EST 12/10/2024 3:14 PM EST Orin Ahn MD LAB BLOOD ORDE SHAE Final Result Performing Organization Address City/[facility]/ZIP Co de Phone Number [facility] DEPARTMENT OF LABORATORY MEDICINE [address] [place] [address] * Hepatitis A antibody, IgM (12/10/2024 9:40 AM EST) Hepatitis A Antibody, IgM Negative Negative 12/10/2024 11:07 PM EST [facility] DEPARTMENT OF LABORATORY MEDICINE Blood ARM NEC / Unknown Venipuncture / Unknown 12/10/2024 9:40 AM EST 12/10/2024 2:56 PM EST us Orin Ahn MD LAB BLOOD ORDE SHAE Final Result Performing Organization Address [facility] Co de Phone Number [facility] DEPARTMENT OF LABORATORY MEDICINE [address] [place] [address] * Ceruloplasmin (12/10/2024 9:40 AM EST) Pathologist [facility] Ceruloplasmin 39 18 - 51 mg/dL 12/10/2024 4:07 PM EST [facility] DEPARTMENT OF LABORATORY MEDICINE Blood ARM NEC / Unknown Venipuncture / Unknown 12/10/2024 9:40 AM EST 12/10/2024 3:14 PM EST us Orin Ahn MD LAB BLOOD ORDE SHAE Final Result Performing Organization Address City/[facility]/ZIP Co de Phone Number [facility] DEPARTMENT OF LABORATORY MEDICINE [address] [place] [address] * Hepatitis B core antibody, total (12/10/2024 9:40 AM EST) Hepatitis B Core Antibody, Total Negative Negative 12/10/2024 6:35 PM EST [facility] DEPARTMENT OF LABORATORY MEDICINE Blood ARM NEC / Unknown Venipuncture / Unknown 12/10/2024 9:40 AM EST 12/10/2024 2:56 PM EST Orin Ahn MD LAB BLOOD ORDE RABLES Final Result Performing Organization Address City/[facility]/ZIP Co de Phone Number [facility] DEPARTMENT OF LABORATORY MEDICINE [address] [place] [address] * Hepatitis B surface antibody (BH GH L LMW YH) (12/10/2024 9:40 AM EST) Hepatitis B Surface Antibody <8.00 > or = 12 mIU/mL 12/10/2024 6:33 PM EST [facility] DEPARTMENT OF LABORATORY MEDICINE Comment: Patient [...] ORDE RABFRANCK Final Result Performing Organization Address [facility] Co de Phone Number [facility] DEPARTMENT OF LABORATORY MEDICINE [address] [place] [address] * Hepatitis B surface antigen (BH GH L LMW YH) (12/10/2024 9:40 AM EST) Hepatitis B Surface Antigen Negative Negative 12/10/2024 6:36 PM EST [facility] DEPARTMENT OF LABORATORY MEDICINE Blood ARM NEC / Unknown Venipuncture / Unknown 12/10/2024 9:40 AM EST 12/10/2024 2:56 PM EST Orin Ahn MD LAB BLOOD ORDE RABLES Final Result [facility] DEPARTMENT OF LABORATORY MEDICINE [address] [place] [address] * DAVID IFA screen w/rflx titer and pattern, IFA (12/10/2024 9:40 AM EST) DAVID <1:80 <1:80 (Negative ) 12/11/2024 3:23 PM EST [facility] DEPARTMENT OF LABORATORY MEDICINE Comment: Specimen tested using a HEp-2 indirect immunofluorescent assay. Effective June 16, 2024, DAVID testing will be performed on the [employer]weather IFA platform. Please note; previous results may not directly correlate due to method change. Blood ARM NEC / Unknown Venipuncture / Unknown 12/10/2024 9:40 AM EST 12/10/2024 2:57 PM EST Orin Ahn MD LAB BLOOD ORDCrystal KAUFMAN Final Result Performing Organization Address City/[facility]/ZIP Co de Phone Number [facility] DEPARTMENT OF LABORATORY MEDICINE [address] [place] [address] * GAMMA GT (12/10/2024 9:40 AM EST) GGT 34 <48 U/L 12/10/2024 4:11 PM EST [facility] DEPARTMENT OF LABORATORY MEDICINE Blood ARM NEC / Unknown Venipuncture / Unknown 12/10/2024 9:40 AM EST 12/10/2024 3:14 PM EST Orin Ahn MD LAB BLOOD ORDCrystal KAUFMAN Final Result [facility] DEPARTMENT OF LABORATORY MEDICINE [address] [place] [address] * Immunoglobulin G (12/10/2024 9:40 AM EST) Immunoglobulin G 1,241 700 - 1,600 mg/dL 12/10/2024 4:29 PM EST [facility] DEPARTMENT OF LABORATORY MEDICINE Blood ARM NEC / Unknown Venipuncture / Unknown 12/10/2024 9:40 AM EST 12/10/2024 3:14 PM EST Orin Ahn MD LAB BLOOD ORDE SHAE Final Result [facility] DEPARTMENT OF LABORATORY MEDICINE [address] [place] [address] * Ferritin (12/10/2024 9:40 AM EST) Ferritin 40 13 - 150 ng/mL 12/10/2024 4:11 PM EST [facility] DEPARTMENT OF LABORATORY MEDICINE Blood ARM NEC / Unknown Venipuncture / Unknown 12/10/2024 9:40 AM EST 12/10/2024 3:14 PM EST Orin Ahn MD LAB BLOOD ORDE MICHELLEFRANCK Final Result Performing Organization Address [facility] Co de Phone Number [facility] DEPARTMENT OF LABORATORY MEDICINE [address] [place] [address] * (ABNORMAL) Hepatic function panel (12/10/2024 9:40 AM EST) Total Bilirubin 0.9 <=1.2 mg/dL 12/11/19 25 4:[address] [facility] DEPARTMENT OF LABORATORY MEDICINE Bilirubin, Direct 0.3(H) <=0.2 mg/dL 2024 4:[address] [facility] DEPARTMENT OF LABORATORY MEDICINE Alkaline Phosphatase 76 9 - 122 U/L 12/10/2024 4:[address] [facility] DEPARTMENT OF LABORATORY MEDICINE Alanine Aminotransferase (ALT) 44(H) 10 - 35 U/L 12/10/2024 4:[address] [facility] DEPARTMENT OF LABORATORY MEDICINE Comment:Calcium dobesilate c an cause artificially low ALT results at therapeutic concentrations Aspartate Aminotransferase (AST) 25 10 - 35 U/L 12/10/2024 4:[address] [facility] DEPARTMENT OF LABORATORY MEDICINE AST/ALT Ratio 0.6 Reference Range Not Established 12/10/2024 4:[address] [facility] DEPARTMENT OF LABORATORY MEDICINE Total Protein 7.2 5.9 - 8.3 g/dL 025 4:[address] [facility] DEPARTMENT OF LABORATORY MEDICINE Comment:As of 2024, e reference interval for Total Protein has been changed from (6.6 to 8.7 g/dL) to (5.9 to 8.3 g/dL). Albumin 4.1 3.6 - 5.1 g/dL 12/10/2024 4:11 PM EST [facility] DEPARTMENT OF LABORATORY MEDICINE Comment:As of 2024, th e reference interval for Albumin has been changed from (3.6 to 4.9 g/dL) to (3.6 to 5.1 g/dL). Globulin 3.1 2.0 - 3.9 g/dL 12/10/2024 4:11 PM EST [facility] DEPARTMENT OF LABORATORY MEDICINE Comment:As of 2024, th e reference interval for Globulin has been changed from (2.3 to 3.5 g/dL) to (2.0 to 3.9 g/dL). A/G Ratio 1.3 1.0 - 2.2 12/10/2024 4:11 PM EST [facility] DEPARTMENT OF LABORATORY MEDICINE Blood ARM NEC / Unknown Venipuncture / Unknown 12/10/2024 9:40 AM EST 12/10/2024 3:14 PM EST Orin Ahn MD LAB BLOOD ORDE SHAE Final Result Performing Organization Address City/State/[facility] Co de Phone Number [facility] DEPARTMENT OF LABORATORY MEDICINE [address] [place] [address] * CT Abdomen Pelvis with IV Contrast without oral (BMI>25) (11/17/2024 5:28 PM EST) Anatomical Region Laterality Modality Abdomen, Pelvis, Ortho Pelvis, Abdomen and Pelvi s Computed Tomography 11/17/2024 5:37 PM EST Impressions 11/17/2024 6:10 PM EST No acute findings. Subcentimeter mesenteric lymph nodes are nonspecific. [facility] Classification: Routine. Report initiated by: ??José Antonio Burns MD Reported and signed by: Anali Da Silva MD [facility] Narrative 11/17/2024 6:10 [...] findings. Subcentimeter mesenteric lymph nodes are nonspecific. [facility] Classification: Routine. Report initiated by: José Antonio Burns MD Reported and signed by: Anali Da Silva MD [facility] John Styles MD IMG CT ORDERABLES Final Result * CXR (11/17/2024 5:23 PM EST) Anatomical Region Laterality Modality Chest Digital Radiogra phy 11/17/2024 5:24 PM EST Impressions 11/17/2024 5:26 PM EST No acute cardiothoracic abnormality. [facility] Classification: Routine. Report initiated by: ??Hanny Sanford MD, MS Reported and signed by: Anali Da Silva MD [facility] Narrative 11/17/2024 5:26 [...] surgical clips. IMPRESSION: No acute cardiothoracic abnormality. [facility] Classification: Routine. Report initiated by: Hanny Sanford MD, MS Reported and signed by: Anali Da Silva MD [facility] John Styles MD IM DIAGNOSTIC IMAGING ORDERABLES Final Result * (ABNORMAL) Comprehensive metabolic panel (11/17/2024 5:07 PM EST) Sodium 141 136 - 144 mmol/L 11/17/2024 6:[address] [facility] DEPARTMENT OF LABORATORY MEDICINE Potassium 3.6 3.3 - 5.3 mmol/L 11/17/2024 6:13 PM EST [facility] DEPARTMENT OF LABORATORY MEDICINE Chloride 107 98 - 107 mmol/L 11/17/2024 6:[address] [facility] DEPARTMENT OF LABORATORY MEDICINE CO2 20 20 - 30 mmol/L 11/17/2024 6:[address] [facility] DEPARTMENT OF LABORATORY MEDICINE Anion Gap 14 7 - 17 11/17/2024 6:[address] [facility] DEPARTMENT OF LABORATORY MEDICINE Glucose 83 70 - 100 mg/dL 11/17/2024 6:[address] [facility] DEPARTMENT OF LABORATORY MEDICINE BUN 9 6 - 20 mg/dL 11/17/2024 6:[address] [facility] DEPARTMENT OF LABORATORY MEDICINE Creatinine 0.99 0.40 - 1.30 mg/dL 11/17/2024 6:[address] [facility] DEPARTMENT OF LABORATORY MEDICINE Calcium 8.9 8.8 - 10.2 mg/dL 11/17/2024 6:[address] [facility] DEPARTMENT OF LABORATORY MEDICINE BUN/Creatinine Ratio 9.1 8.0 - 23.0 11/17/2024 6:[address] [facility] DEPARTMENT OF LABORATORY MEDICINE Total Protein 7.3 5.9 - 8.3 g/dL 025 6:[address] [facility] DEPARTMENT OF LABORATORY MEDICINE Comment:As of 2024, th e reference interval for Total Protein has been changed from (6.6 to 8.7 g/dL) to (5.9 to 8.3 g/dL). Albumin 4.2 3.6 - 5.1 g/dL 11/17/2024 6:[address] [facility] DEPARTMENT OF LABORATORY MEDICINE Comment:As of 2024, th e reference interval for Albumin has been changed from (3.6 to 4.9 g/dL) to (3.6 to 5.1 g/dL). Total Bilirubin 0.6 <=1.2 mg/dL 11/17/19 25 6:[address] [facility] DEPARTMENT OF LABORATORY MEDICINE Alkaline Phosphatase 133(H) 9 - 122 U/L 11/17/2024 6:[address] [facility] DEPARTMENT OF LABORATORY MEDICINE Alanine Aminotransferase (ALT) 113(H) 10 - 35 U/L 11/17/2024 6:[address] [facility] DEPARTMENT OF LABORATORY MEDICINE Comment:Calcium dobesilate c an cause artificially low ALT results at therapeutic concentrations Aspartate Aminotransferase (AST) 76(H) 10 - 35 U/L 11/17/2024 6:[address] [facility] DEPARTMENT OF LABORATORY MEDICINE Globulin 3.1 2.0 - 3.9 g/dL 11/17/2024 6:[address] [facility] DEPARTMENT OF LABORATORY MEDICINE Comment:As of 2024, th e reference interval for Globulin has been changed from (2.3 to 3.5 g/dL) to (2.0 to 3.9 g/dL). A/G Ratio 1.4 1.0 - 2.2 11/17/2024 6:[address] [facility] DEPARTMENT OF LABORATORY MEDICINE AST/ALT Ratio 0.7 Reference Range Not Established 11/17/2024 6:[address] [facility] DEPARTMENT OF LABORATORY MEDICINE eGFR (Creatinine) >60 >=60 mL/min/1.73m2 11/17/2024 6:[address] [facility] DEPARTMENT OF LABORATORY MEDICINE Comment: [facility] utilizes CKD-EPI Creatinine 2020 to report eGFR. Values < 60 mL/min/1.73 m2 may indicate CKD if present for more than three months AND creatinine is at steady state. The eGFR provides a rough estimate of kidney function. For further guidance, please refer to the CKD: Adult Storage Manager Signature pathway. Creatinine Delta 11/17/19 6:[address] [facility] DEPARTMENT OF LABORATORY MEDICINE Comment:No previous creatini ne <5.00 mg/dL is available within the previous 12 months to calculate a delta creatinine. Blood Venipuncture / Unknown 11/17/2024 5:07 PM EST 11/17/2024 5:23 PM EST us John Styles MD LAB BLOOD ORDERABLES Fi nal Result Performing Organization Address City/State/[facility] Co de Phone Number [facility] DEPARTMENT OF LABORATORY MEDICINE [address] [place] [address] * (ABNORMAL) CBC auto differential (11/17/2024 5:07 PM EST) WBC 7.4 4.0 - 11.0 x1000/??L 11/17/2024 5:[address] [facility] DEPARTMENT OF LABORATORY MEDICINE RBC 4.79 4.00 - 6.00 M/??L 11/17/2024 5:[address] [facility] DEPARTMENT OF LABORATORY MEDICINE Hemoglobin 12.8 11.7 - 15.5 g/dL 11/17/2024 5:[address] [facility] DEPARTMENT OF LABORATORY MEDICINE Hematocrit 40.10 35.00 - 45.00 % 11/17/2024 5:[address] [facility] DEPARTMENT OF LABORATORY MEDICINE MCV 83.7 80.0 - 100.0 fL 11/17/2024 5:[address] [facility] DEPARTMENT OF LABORATORY MEDICINE MCH 26.7(L) 27.0 - 33.0 pg 11/17/2024 5:[address] [facility] DEPARTMENT OF LABORATORY MEDICINE MCHC 31.9 31.0 - 36.0 g/dL 11/17/2024 5:[address] [facility] DEPARTMENT OF LABORATORY MEDICINE RDW-CV 13.7 11.0 - 15.0 % 11/17/2024 5:[address] [facility] DEPARTMENT OF LABORATORY MEDICINE Platelets 259 150 - 420 x1000/??L 11/17/2024 5:[address] [facility] DEPARTMENT OF LABORATORY MEDICINE MPV 10.5 8.0 - 12.0 fL 11/17/2024 5:[address] [facility] DEPARTMENT OF LABORATORY MEDICINE Neutrophils 36.8(L) 39.0 - 72.0 % 11/17/2024 5:[address] [facility] DEPARTMENT OF LABORATORY MEDICINE Lymphocytes 44.2 17.0 - 50.0 % 11/17/2024 5:[address] [facility] DEPARTMENT OF LABORATORY MEDICINE Monocytes 13.8(H) 4.0 - 12.0 % 11/17/2024 5:[address] [facility] DEPARTMENT OF LABORATORY MEDICINE Eosinophils 4.2 0.0 - 5.0 % 11/17/2024 5:[address] [facility] DEPARTMENT OF LABORATORY MEDICINE Basophil 0.5 0.0 - 1.4 % 11/17/2024 5:[address] [facility] DEPARTMENT OF LABORATORY MEDICINE Immature Granulocytes 0.5 0.0 - 1.0 % 11/17/2024 5:[address] [facility] DEPARTMENT OF LABORATORY MEDICINE nRBC 0.0 0.0 - 1.0 % 11/17/2024 5:[address] [facility] DEPARTMENT OF LABORATORY MEDICINE Absolute Lymphocyte Count 3.27 0.60 - 3.70 x 1000/??L 11/17/2024 5:[address] [facility] DEPARTMENT OF LABORATORY MEDICINE Monocyte Absolute Count 1.02(H) 0.00 - 1.00 x 1000/??L 11/17/2024 5:[address] [facility] DEPARTMENT OF LABORATORY MEDICINE Eosinophil Absolute Count 0.31 0.00 - 1.00 x 1000/??L 11/17/2024 5:32 PM EST [facility] DEPARTMENT OF LABORATORY MEDICINE Basophil Absolute Count 0.04 0.00 - 1.00 x 1000/??L 11/17/2024 5:[address] [facility] DEPARTMENT OF LABORATORY MEDICINE Absolute Immature Granulocyte Count 0.04 0.00 - 0.30 x 1000/??L 11/17/2024 5:[address] [facility] DEPARTMENT OF LABORATORY MEDICINE Absolute nRBC 0.00 0.00 - 1.00 x 1000/??L 11/17/2024 5:[address] [facility] DEPARTMENT OF LABORATORY MEDICINE ANC (Abs Neutrophil Count) 2.71 2.00 - 7.60 x 1000/??L 11/17/2024 5:32 PM EST [facility] DEPARTMENT OF LABORATORY MEDICINE Blood Venipuncture / Unknown 11/17/2024 5:07 PM EST 11/17/2024 5:23 PM EST John Styles MD LAB BLOOD ORDERABLES Fi nal Result Performing Organization Address City/[facility]/ZIP Co de Phone Number [facility] DEPARTMENT OF LABORATORY MEDICINE [address] [place] [address] * Lipase (11/17/2024 5:07 PM EST) Pathologist [facility] Lipase 26 11 - 55 U/L 11/17/2024 5:57 PM EST [facility] OF LABORATORY MEDICINE Blood Venipuncture / Unknown 11/17/2024 5:07 PM EST 11/17/2024 5:23 PM EST John Styles MD LAB BLOOD ORDERABLES Fi nal Result [facility] LABORATORY MEDICINE [address] [place] [address] * POCT urine (11/17/2024 4:59 PM EST) Preg Test, Ur, POC Negative Negative [facility] Line in Control Window? (+ Control) Yes [facility] Background Clear? (- Control) Yes [facility] Kit Lot Number [id number] [facility] Expiration Date 03/04/2026 [facility] Urine URINE SPECIMEN / Unknown 11/17/2024 4:59 PM EST John Styles MD POINT OF CARE TEST ORDCrystal KAUFMAN Final Result [facility] [place], [place], [facility] * Lab Scan (10/20/2024 1:37 PM EST) Only the most recent of2 resultswithin the time period is included. Historical Provider LAB BLOOD ORDERABLES Final R esult from Last 3 Months Insurance [address] [facility] Care Teams Document Management Specialist Relationship Specialty Start Date End Date Xin Murray NP [address] [place] [id number] PCP - General 11/17/24
== END 2025-01-16 17:05 | disposition home or self-care (01) ==
LOC: HO.HMCFM 14:16
PROVIDERS: PCP Nurse Practitioner Family; Visit Provider Nurse Practitioner Family
DX: G47.19 Other hypersomnia (principal); F90.0 Attention-deficit hyperactivity disorder, predominantly inattentive type; F41.1 Generalized anxiety disorder; F33.1 Major depressive disorder, recurrent, moderate

== ENCOUNTER → 2025-01-16 14:16 | Outpatient (BNVA) | payer OTHER, SELFPAY | PROVIDERS: PCP Nurse Practitioner Family; Visit Provider Nurse Practitioner Family | DX: Z13.89 Encounter for screening for other disorder (principal) ==

== ENCOUNTER 2025-02-11 15:05 | Outpatient (REF) | payer OTHER, SELFPAY ==
--- NOTE | ~2025-02-11 | CT_ITS ---
EXAMINATION: CT ENTEROGRAPHY ABDOMEN AND PELVIS WITH CONTRAST CLINICAL INFORMATION: Other fecal abnormalities. 24-year-old female. COMPARISON: None available. TECHNIQUE: Study performed with oral VoLumen (1500 mL) to provide negative contrast agent of the small bowel. The patient was injected with 85 mL Omnipaque 350 intravenous contrast which was administered without adverse effect. Coronal and sagittal reformatted images were obtained at the technologist's workstation. This CT examination was performed using dose optimization techniques as appropriate, variously including the following: *Automated exposure control *Adjustment of mA and/or kV according to patient size (this includes techniques or standardized protocols for targeted exams where dose is matched to indication/reason for exam; i.e. extremities or head) *Use of iterative reconstruction technique FINDINGS: GASTROINTESTINAL FINDINGS: Stomach: Well-distended and normal in appearance. No abnormal mucosal enhancement or wall thickening. Small intestine: Satisfactorily distended and normal in appearance. No abnormal mucosal enhancement or wall thickening. The terminal ileum is normal in appearance. Large intestine: Normal in appearance. Moderate retained fecal material throughout the colon and rectum. No abnormal mucosal enhancement or wall thickening. Mildly redundant sigmoid colon. No perirectal changes demonstrated. The appendix is normal. Additional findings: No abnormal enhancement of the vasa recta or significant mesenteric or retroperitoneal lymphadenopathy is seen. LUNG BASES: Lung bases are clear. Heart size is normal. No effusions. GE junction is normal. LIVER, GALLBLADDER, AND BILIARY TREE: The liver is normal in size, shape, an demonstrate mild fatty infiltration diffusely. No focal hepatic lesion or biliary ductal dilatation is present. The gallbladder is surgically absent. PANCREAS: Unremarkable. SPLEEN: Unremarkable. ADRENAL GLANDS: Unremarkable. KIDNEYS AND URETERS: The kidneys are normal in size, shape, and attenuation. No hydronephrosis, hydroureter, or calculi seen. No perinephric stranding. BLADDER: Suboptimally distended, but grossly normal. ABDOMINAL WALL: No significant hernia is appreciated. LYMPH NODES: Normal. VASCULAR: Unremarkable. PELVIC VISCERA: The uterus and adnexa are unremarkable. OSSEOUS STRUCTURES: Normal in appearance. No suspicious lytic or blastic bone lesion. SI joints appear normal. There are bone islands in the left medial iliac bone and right femoral neck. CT/CT enterography IMPRESSION: 1. Normal CT enterography. No abnormality of the stomach, duodenum, small bowel, colon, or rectum. Moderate retained fecal material throughout the colon. 2. Mild fatty infiltration of the liver. 3. Cholecystectomy. Electronically signed by: Carter Dobbins MD 02/12/2025 08:31 AM EDT
--- OUTSIDE RECORDS SUMMARY | 2025-02-11 16:05 | XMS_ITS | Clinical Summary ---
Author Organization [facility] Address [address] [place] [address] Phone Care Team Providers Care Ballast Cleaning Operator Name Role Phone Marcia Grey MD Primary Care Provider [phone] Allergies No known active allergies Medications topiramate [...] patient's age to complete this topic Insurance [facility] Care Teams Ballast Cleaning Operator Relationship Specialty Start Date End Date Marcia Grey MD [address] [place] [id number] PCP - General 12/28/22
--- OUTSIDE RECORDS SUMMARY | 2025-02-11 16:05 | XMS_ITS | Encounter Summary ---
Author Organization [facility] Address [address] [place] [address] Care Team Providers Care Software Engineering Manager Name Role Phone Xin Murray APRN Primary Care Provider + Encounter Details Date Type Department Care Team (Late st Contact Info) Description 10/22/2024 Scanned Document [address] [place] [phone] Provider, Generic Social History Tobacco Use Types Packs/Day Years Used Date Smoking Tobacco: Never Assessed Comments Unknown Sex and Gender Information Value Date Recorded Sex Assigned at Not on file Legal Sex Female 1:35 PM EST Gender Identity Not on file Sexual Orientation Not on file documented as of this encounter Plan of Treatment Not on file documented as of this encounter Visit Diagnoses Not on filedocumented in this encounter Care Teams Software Engineering Manager Relationship Specialty Start Date End Date Xin Murray APRN [address] [place] [address] PCP - General Family Medicine 10/22/24 documented as of this encounter
--- OUTSIDE RECORDS SUMMARY | 2025-02-11 16:05 | XMS_ITS | Encounter Summary ---
Author Organization [facility] Address [address] [place] [address] Care Team Providers Care Pillowcase Cutter Name Role Phone Xin Murray APRN Primary Care Provider + Encounter Details Date Type Department Care Team (Late st Contact Info) Description 10/22/2024 Scanned Document [address] [place] [phone] Provider, Generic Social History Tobacco Use [...] on filedocumented in this encounter Care Teams Pillowcase Cutter Relationship Specialty Start Date End Date Xin Murray APRN [address] [place] [address] PCP - General Family Medicine 10/22/24 documented as of this encounter
--- OUTSIDE RECORDS SUMMARY | 2025-02-11 16:05 | XMS_ITS | Encounter Summary ---
Author Organization [facility] Address [address] [place] [phone] Care Team Providers Care Dsp Engineer Name Role Phone Xin Murray NP Primary Care Provider [phone] Encounter Details Date Type Department Care Team (Late st Contact Info) Description 12/09/2024 Scanned Document [facility] SCHEDULING [address] [place] [address] Provider, Historical . Social History [...] AM EDT Office Visit [facility] Diseases at [address] [place] [phone] Orin Ahn MD [address] [place] [phone] documented as of this encounter Procedures [...] * Colonoscopy (09/03/2024 1:33 PM EST) [facility] Provider GI PROCEDURE ORDERABLES Laura l Result documented in this encounter Visit Diagnoses Not on filedocumented in this encounter Care Teams Dsp Engineer Relationship Specialty Start Date End Date Xin Murray NP [address] [place] [address] PCP - General 11/17/24 documented as of this encounter
--- OUTSIDE RECORDS SUMMARY | 2025-02-11 16:05 | XMS_ITS | Encounter Summary ---
Author Organization [facility] Address [address] [place] [phone] Care Team Providers Care Nozzle Operator Name Role Phone Xin Murray NP Primary Care Provider [phone] Encounter Details Date Type Department Care Team (Late st Contact Info) Description 01/19/2025 Scanned Document CARE [facility]ENTER SCHEDULING [address] [place] [address] Provider, Historical . Social History [...] AM EDT Office Visit Digestive Diseases at [address] [facility] [address] [place], [place] [phone] Orin Ahn MD [address] [place] [phone] documented as of this encounter Procedures Procedure Name Priority Date/Time Associated Diagnosis Comments US RESULT SCAN Routine 12/12/2024 7:10 AM EST documented in this encounter Results * US Result Scan (12/12/2024 7:10 AM EST) us Historical Provider IMG SCAN REPORTS Final Resul t documented in this encounter Visit Diagnoses Not on filedocumented in this encounter Care Teams Nozzle Operator Relationship Specialty Start Date End Date Xin Murray NP [address] [place] [address] PCP - General 11/17/24 documented as of this encounter
--- OUTSIDE RECORDS SUMMARY | 2025-02-11 16:05 | XMS_ITS | Clinical Summary ---
Author Organization [facility] Address [address] [place] [address] Care Team Providers Care Income Tax Analyst Name Role Phone Xin Murray APRN Primary Care Provider + Allergies Active Allergy Reactions Criticality Noted Date Comments Budesonide Hives Medium 10/15/2023 Medications amphetamine-dext roamphetamine (ADDERALL XR) 30 MG 24 hr capsule Take 30 mg by mouth every morning. 08/07/2024 Active buPROPion (WELLBUTRIN SR) 150 MG 12 hr tablet Take 150 mg by mouth every morning. 08/06/2024 Active levonorgestrel-e thinyl estradiol (Vienva) 0.1-20 MG-MCG per tablet See Instruction s, TAKE 1 TABLET BY MOUTH EVERY DAY, # 84 tablet, 1 Refills, Maintenance , 09/18/24 5:20:00 PM EST, [facility], 84, TAKE 1 TABLET BY MOUTH EVERY DAY, 154, cm, 06/03/24 17:43:00 EDT, Height, 90.1, kg, 03/28/23 8:33:00 EDT, Dry Weight 09/18/2024 Active sucralfate (CARAFATE) 1 g tablet 10/20/2024 Active topiramate (TOPAMAX) 100 MG tablet TAKE 1 TABLET BY MOUTH 2 TIMES DAILY FOR 90 DAYS. 09/15/2024 Active venlafaxine 75 MG Tablet SR 24 hr Take 75 mg by mouth 1 time. Active Social History Tobacco Use Types Packs/Day Years [...] patient's age to complete this topic Insurance [facility] Care Teams Income Tax Analyst Relationship Specialty Start Date End Date Xin Murray APRN [address] [place] [address] [place] [phone] PCP - General Family Medicine 10/22/24
--- OUTSIDE RECORDS SUMMARY | 2025-02-11 16:05 | XMS_ITS | Clinical Summary ---
Author Organization [facility] Address [address] [place] [address] Care Team Providers Care Molding Press Operator Name Role Phone Marcia Grey MD Primary Care Provider [phone] Allergies Active Allergy Reactions Criticality Noted Date [...] age to complete this topic Care Teams Molding Press Operator Relationship Specialty Start Date End Date Marcia Grey MD [address] [place] [address] PCP - General Pediatrics 10/15/23
--- OUTSIDE RECORDS SUMMARY | 2025-02-11 16:06 | XMS_ITS | Clinical Summary ---
Author Organization [address] Address [address] [place] [phone] Phone Care Team Providers Care Optical Worker Name Role Phone Xin Murray NP Primary Care Provider [phone]- [phone] Medications famotidine (PEPCID) 20 mg tablet [...] Encounters Date Type Department Care Team Description 01/28/2025 Telephone [facility] at [address] [place] [phone] Orin Ahn MD Results (US results) 01/22/2025 Telephone [facility] [address] [place] [phone] Orin Ahn MD Results (Second attempt to discuss US results) 01/21/2025 Telephone [facility] [address] [place] [phone] Orin Ahn MD Results (US results) 01/19/2025 Scanned Document [facility] SCHEDULING [address] [place] [address] Provider, Historical 01/14/2025 8:10 PM EDT - 01/14/2025 11:59 PM EDT Hospital Encounter [facility] FILE ROOM [address] [place] [address] Orin Ahn MD Discharge Disposition: Home or Self Care 12/10/2024 9:00 AM EST Office Visit [facility] at 8 [facility] 8 [place] [address] Orin Ahn MD Abnormal liver function tests (Primary Dx); Bilious vomiting with nausea; Rectal bleeding 12/09/2024 Scanned Document [facility] SCHEDULING [address] [place] [address] Provider, Historical 12/09/2024 Telephone EXTERNAL REFERRAL SOURCE [address] [place] [phone] Xin Murray, MOTEL KEEPER Other 12/08/2024 Telephone [facility] at 40 [facility] [address] [facility] [address] [place] [address] Orin Ahn MD Other (Medical records) 11/17/2024 2:47 PM EST - 11/17/2024 8:48 PM EST Emergency [facility] Emergency Department [address] [place] [phone] John Styles MD Transaminitis (Primary Dx); Nonspecific [...] EDT Office Visit [facility] [address] [place] [phone] Orin Ahn MD [address] [place] [phone] Health Maintenance Due Date Last Done [...] Cervical cancer screening 2021 Covid-19 vaccine series ( - season) 2024 Influenza vaccine 06/08/2025 RSV Immunization [...] ABDOMEN VIEWS Routine 12/12/2024 8:11 PM EST US RESULT SCAN Routine 12/12/2024 7:10 AM EST HEPATITIS A ANTIBODY, IGM Routine 12/10/2024 9:40 AM EST Abnormal liver function tests HEPATITIS A ANTIBODY, IGG ( GH LMW YH) Routine 12/10/2024 9:40 [...] POCT URINE STAT 11/17/2024 4:59 PM EST from Last 3 Months Results * [facility] US Abdomen Views (12/12/2024 8:11 PM EST) Narrative RAD4 - 01/14/2025 8:11 PM EDT DISCLAIMER ??This procedure captures images only. ??There is no report. Orin Ahn MD IMG [facility] NON RE P ORDERABLES Final Result Performing Organization Address City/[facility]/ZIP Co de Phone Number RAD4 * US Result Scan (12/12/2024 7:10 AM EST) Historical Provider IMG SCAN REPORTS Final Resul t * Hepatitis A antibody, IgG () (12/10/2024 9:40 AM EST) Hepatitis A Antibody, IgG Positive Negative 12/10/2024 11:03 PM EST [facility] LABORATORY MEDICINE Blood ARM NEC / Unknown Venipuncture / Unknown 12/10/2024 9:40 AM EST 12/10/2024 2:56 PM EST Orin Ahn MD LAB BLOOD ORDE RABFRANCK Final Result Performing Organization Address [facility] de Phone Number [facility] DEPARTMENT OF LABORATORY MEDICINE [address] [place] [address] * Smooth Muscle Ab Screen w/ Rflx Titer (BH GH LMW Y) (12/10/2024 9:40 AM EST) Pathologist [facility] SMOOTH MUSCLE AB SCREEN, S Negative Negative 12/12/2024 1:19 PM EST [facility] Comment: Negative: No further testing will be performed ADDITIONAL INFORMATION This test was developed and its performance characteristics determined by [facility] in a manner consistent with CLIA requirements. This test has not been cleared or approved by the U.S. Food and Drug Administration. Test Performed by: [facility] - [address] [address] Track Repair Supervisor: Brayan Sorto Ph.D.; CLIA# [id number] Blood ARM NEC / Unknown Venipuncture / Unknown 12/10/2024 9:40 AM EST 12/10/2024 3:14 PM EST Orin Ahn MD LAB BLOOD ORDE RABFRANCK Final Result [facility] * Mitochondria M2 antibody (IgG), EIA (12/10/2024 9:40 AM EST) Mitochondrial M2 Antibody, IgG 1.3 <4.0 U/mL 12/11/2024 7:15 PM EST [facility] LABORATORY MEDICINE Comment: Reference Interval: [...] this assay is being performed on the [employer] ANDRES System with results reported quantitively by [employer]. Blood ARM NEC / Unknown Venipuncture / Unknown 12/10/2024 9:40 AM EST 12/10/2024 2:57 PM EST us Orin Ahn MD LAB BLOOD ORDE SHAE Final Result [facility] OF LABORATORY MEDICINE [address] [place] [address] * Liver-kidney microsome antibody, IgG (BH GH LMW Q YH) (12/10/2024 9:40 AM EST) Liver-Kidney Microsomal Ab, IgG <2.0 <=20.0 Units 12/11/2024 1:46 PM EST [facility] OF LABORATORY MEDICINE Comment: Reference Interval: [...] Final Result Performing Organization Address [facility] Co de Phone Number [facility] DEPARTMENT OF LABORATORY MEDICINE [address] [place] [address] * Hepatitis C Ab with reflex to HCV PCR (12/10/2024 9:40 AM EST) Hepatitis C Antibody Negative Negative 12/10/2024 6:37 PM EST [facility] LABORATORY MEDICINE Comment:A negative result [...] ORDE RABLES Final Result Performing Organization Address [facility] Co de Phone Number [facility]MENT OF LABORATORY MEDICINE [address] [place] [address] * Iron and TIBC (12/10/2024 9:40 AM EST) Pathologist [facility] Iron 141 37 - 145 ug/dL 12/10/2024 4:11 PM EST [facility] OF LABORATORY MEDICINE Comment:In the presence of h igh ferritin concentrations >1200 ng/mL, the assumption that serum iron is almost completely bound to transferrin is no longer valid. Therefore, such iron results should not be used to calculate Total Iron Binding Capacity (TIBC) or percent transferrin saturation (%SAT). Iron Saturation 36 15 - 50 % 4:11 PM EST [facility] OF LABORATORY MEDICINE TIBC 394 250 - 450 ug/dL 12/10/2024 4:11 PM EST [facility] OF LABORATORY MEDICINE Blood ARM NEC / Unknown Venipuncture / Unknown 12/10/2024 9:40 AM EST 12/10/2024 3:14 PM EST Orin Ahn MD LAB BLOOD ORDE SHAE Final Result [facility] OF LABORATORY MEDICINE [address] [place] [address] * Hepatitis A antibody, IgM (12/10/2024 9:40 AM EST) Pathologist [facility] Hepatitis A Antibody, IgM Negative Negative 12/10/2024 11:07 PM EST [facility] OF LABORATORY MEDICINE Blood ARM NEC / Unknown Venipuncture / Unknown 12/10/2024 9:40 AM EST 12/10/2024 2:56 PM EST Orin Ahn MD LAB BLOOD ORDE RABFRANCK Final Result [facility]MENT OF LABORATORY MEDICINE [address] [place] [address] * Ceruloplasmin (12/10/2024 9:40 AM EST) Pathologist [facility] Ceruloplasmin 39 18 - 51 mg/dL 12/10/2024 4:07 PM EST [facility] OF LABORATORY MEDICINE Blood ARM NEC / Unknown Venipuncture / Unknown 12/10/2024 9:40 AM EST 12/10/2024 3:14 PM EST Orin Ahn MD LAB BLOOD ORDE RABFRANCK Final Result Performing Organization Address City/[facility] Co de Phone Number [facility]MENT OF LABORATORY MEDICINE [address] [place] [address] * Hepatitis B core antibody, total (12/10/2024 9:40 AM EST) Hepatitis B Core Antibody, Total Negative Negative 12/10/2024 6:35 PM EST [facility] OF LABORATORY MEDICINE Blood ARM NEC / Unknown Venipuncture / Unknown 12/10/2024 9:40 AM EST 12/10/2024 2:56 PM EST Orin Ahn MD LAB BLOOD ORDE RABFRANCK Final Result Performing Organization Address [facility] de Phone Number [facility] OF [facility] MEDICINE [address] [place] [address] * Hepatitis B surface antibody (BH GH L LMW YH) (12/10/2024 9:40 AM EST) Hepatitis B Surface Antibody <8.00 > or = 12 mIU/mL 12/10/2024 6:33 PM EST [facility] OF LABORATORY MEDICINE Comment: Patient is [...] ORDE RABFRANCK Final Result Performing Organization Address City/State/[facility] Co de Phone Number [facility] DEPARTMENT OF LABORATORY MEDICINE [address] [place] [address] * Hepatitis B surface antigen (BH GH L LMW YH) (12/10/2024 9:40 AM EST) Hepatitis B Surface Antigen Negative Negative 12/10/2024 6:36 PM EST [facility] OF LABORATORY MEDICINE Blood ARM NEC / Unknown Venipuncture / Unknown 12/10/2024 9:40 AM EST 12/10/2024 2:56 PM EST us Orin Ahn MD LAB BLOOD ORDE SHAE Final Result Performing Organization Address [facility] Co de Phone Number [facility]MENT OF LABORATORY MEDICINE [address] [place] [address] * DAVID IFA screen w/rflx titer and pattern, IFA (12/10/2024 9:40 AM EST) Pathologist [facility] DAVID <1:80 <1:80 (Negative ) 12/11/2024 3:23 PM EST [facility] OF LABORATORY MEDICINE Comment: Specimen tested using a HEp-2 indirect immunofluorescent assay. Effective June 16, 2024, DAVID testing will be performed on the [employer] IFA platform. Please note; previous results may not directly correlate due to method change. Blood ARM NEC / Unknown Venipuncture / Unknown 12/10/2024 9:40 AM EST 12/10/2024 2:57 PM EST us Orin Ahn MD LAB BLOOD ORDE SHAE Final Result Performing Organization Address City/[facility]/ZIP Co de Phone Number [facility]MENT OF LABORATORY MEDICINE [address] [place] [address] * GAMMA GT (12/10/2024 9:40 AM EST) GGT 34 <48 U/L 12/10/2024 4:11 PM EST [facility] OF LABORATORY MEDICINE Blood ARM NEC / Unknown Venipuncture / Unknown 12/10/2024 9:40 AM EST 12/10/2024 3:14 PM EST Orin Ahn MD LAB BLOOD ORDE RABFRANCK Final Result Performing Organization Address [facility] Co de Phone Number [facility] DE[facility]MENT OF LABORATORY MEDICINE [address] [place] [address] * Immunoglobulin G (12/10/2024 9:40 AM EST) Immunoglobulin G 1,241 700 - 1,600 mg/dL 12/10/2024 4:29 PM EST [facility] OF LABORATORY MEDICINE Blood ARM NEC / Unknown Venipuncture / Unknown 12/10/2024 9:40 AM EST 12/10/2024 3:14 PM EST Orin Ahn MD LAB BLOOD ORDE RABFRANCK Final Result Performing Organization Address [facility] Co de Phone Number [facility] DEPARTMENT OF LABORATORY MEDICINE [address] [place] [address] * Ferritin (12/10/2024 9:40 AM EST) Pathologist [facility] Ferritin 40 13 - 150 ng/mL 12/10/2024 4:11 PM EST [facility] DE[facility]MENT OF LABORATORY MEDICINE Blood ARM NEC / Unknown Venipuncture / Unknown 12/10/2024 9:40 AM EST 12/10/2024 3:14 PM EST Orin Ahn MD LAB BLOOD ORDE RABFRANCK Final Result Performing Organization Address City/[facility] de Phone Number [facility] DEPARTMENT OF LABORATORY MEDICINE [address] [place] [address] * (ABNORMAL) Hepatic function panel (12/10/2024 9:40 AM EST) Total Bilirubin 0.9 <=1.2 mg/dL 12/11/19 4:11 PM EST [facility] DEPARTMENT OF LABORATORY MEDICINE Bilirubin, Direct 0.3(H) <=0.2 mg/dL 2024 4:11 PM [facility] DEPARTMENT OF LABORATORY MEDICINE Alkaline Phosphatase 76 9 - 122 U/L 12/10/2024 4:11 PM [facility] DEPARTMENT OF LABORATORY MEDICINE Alanine Aminotransferase (ALT) 44(H) 10 - 35 U/L 12/10/2024 4:11 PM [facility] DE[facility]MENT OF LABORATORY MEDICINE Comment:Calcium dobesilate c an cause artificially low ALT results at therapeutic concentrations Aspartate Aminotransferase (AST) 25 10 - 35 U/L 12/10/2024 4:11 PM [facility] DEPARTMENT OF LABORATORY MEDICINE AST/ALT Ratio 0.6 Reference Range Not Established 12/10/2024 4:11 PM [facility] DEPARTMENT OF LABORATORY MEDICINE Total Protein 7.2 5.9 - 8.3 g/dL 025 4:11 PM [facility] DEPARTMENT OF LABORATORY MEDICINE Comment:As of 2024, th e reference interval for Total Protein has been changed from (6.6 to 8.7 g/dL) to (5.9 to 8.3 g/dL). Albumin 4.1 3.6 - 5.1 g/dL 12/10/2024 4:11 PM [facility] DEPARTMENT OF LABORATORY MEDICINE Comment:As of 2024, th e reference interval for Albumin has been changed from (3.6 to 4.9 g/dL) to (3.6 to 5.1 g/dL). Globulin 3.1 2.0 - 3.9 g/dL 12/10/2024 4:11 PM [facility] DEPARTMENT OF LABORATORY MEDICINE Comment:As of 2024, th e reference interval for Globulin has been changed from (2.3 to 3.5 g/dL) to (2.0 to 3.9 g/dL). A/G Ratio 1.3 1.0 - 2.2 12/10/2024 4:11 PM [facility] DEPARTMENT OF LABORATORY MEDICINE Blood ARM NEC / Unknown Venipuncture / Unknown 12/10/2024 9:40 AM EST 12/10/2024 3:14 PM EST us Orin Ahn MD LAB BLOOD ORDCrystal KAUFMAN Final Result [facility] DEPARTMENT OF [facility] MEDICINE [address] [place] [id number], [facility] [phone] * CT Abdomen Pelvis with IV Contrast without oral (BMI>25) (11/17/2024 5:28 PM EST) Anatomical Region Laterality Modality Abdomen, Pelvis, Ortho Pelvis, Abdomen and Pelvi s Computed Tomography 11/17/2024 5:37 PM EST Impressions 11/17/2024 6:10 PM EST No acute findings. Subcentimeter mesenteric lymph nodes are nonspecific. [facility] Classification: Routine. Report initiated by: ??José Antonio Burns MD Reported and signed by: Anali Da Silva MD [facility] Narrative 11/17/2024 6:10 [...] findings. Subcentimeter mesenteric lymph nodes are nonspecific. [facility] Classification: Routine. Report initiated by: José Antonio Burns MD Reported and signed by: Anali Da Silva MD [facility] us John Styles MD IMG CT ORDERABLES Final Result * CXR (11/17/2024 5:23 PM EST) Anatomical Region Laterality Modality Chest Digital Radiogra phy 11/17/2024 5:24 PM EST Impressions 11/17/2024 5:26 PM EST No acute cardiothoracic abnormality. [facility] Classification: Routine. Report initiated by: ??Hanny Sanford MD, MS Reported and signed by: Anali Da Silva MD [facility] Narrative 11/17/2024 5:26 [...] surgical clips. IMPRESSION: No acute cardiothoracic abnormality. [facility] Classification: Routine. Report initiated by: Hanny Sanford MD, MS Reported and signed by: Anali Da Silva MD [facility] John Styles MD [facility] ORDERABLES Final Result * (ABNORMAL) Comprehensive metabolic panel (11/17/2024 5:07 PM EST) Sodium 141 136 - 144 mmol/L 11/17/2024 6:13 PM [facility] DEPARTMENT OF LABORATORY MEDICINE Potassium 3.6 3.3 - 5.3 mmol/L 11/17/2024 6:13 PM [facility] DEPARTMENT OF LABORATORY MEDICINE Chloride 107 98 - 107 mmol/L 11/17/2024 6:13 PM [facility] DEPARTMENT OF LABORATORY MEDICINE CO2 20 20 - 30 mmol/L 11/17/2024 6:13 PM [facility] DE[facility]MENT OF LABORATORY MEDICINE Anion Gap 14 7 - 17 11/17/2024 6:13 PM [facility] OF LABORATORY MEDICINE Glucose 83 70 - 100 mg/dL 11/17/2024 6:13 PM [facility] DE[facility]MENT OF LABORATORY MEDICINE BUN 9 6 - 20 mg/dL 11/17/2024 6:13 PM [facility] OF LABORATORY MEDICINE Creatinine 0.99 0.40 - 1.30 mg/dL 11/17/2024 6:13 PM [facility] DE[facility]MENT OF LABORATORY MEDICINE Calcium 8.9 8.8 - 10.2 mg/dL 11/17/2024 6:13 PM [facility] DEPARTMENT OF LABORATORY MEDICINE BUN/Creatinine Ratio 9.1 8.0 - 23.0 11/17/2024 6:13 PM [facility] DE[facility]MENT OF LABORATORY MEDICINE Total Protein 7.3 5.9 - 8.3 g/dL 025 6:13 PM [facility] OF LABOR[facility]ORY MEDICINE Comment:As of 2024, th e reference interval for Total Protein has been changed from (6.6 to 8.7 g/dL) to (5.9 to 8.3 g/dL). Albumin 4.2 3.6 - 5.1 g/dL 11/17/2024 6:13 PM [facility] OF LABORATORY MEDICINE Comment:As of 2024, th e reference interval for Albumin has been changed from (3.6 to 4.9 g/dL) to (3.6 to 5.1 g/dL). Total Bilirubin 0.6 <=1.2 mg/dL 11/17/19 6:13 PM [facility] DEPARTMENT OF LABORATORY MEDICINE Alkaline Phosphatase 133(H) 9 - 122 U/L 11/17/2024 6:13 PM [facility] DEPARTMENT OF LABORATORY MEDICINE Alanine Aminotransferase (ALT) 113(H) 10 - 35 U/L 11/17/2024 6:13 PM [facility] OF LAB[facility]ORY MEDICINE Comment:Calcium dobesilate c an cause artificially low ALT results at therapeutic concentrations Aspartate Aminotransferase (AST) 76(H) 10 - 35 U/L 11/17/2024 6:13 PM [facility] DE[facility]MENT OF LABORATORY MEDICINE Globulin 3.1 2.0 - 3.9 g/dL 11/17/2024 6:13 PM [facility] OF LABOR[facility]ORY MEDICINE Comment:As of 2024, e reference interval for Globulin has been changed from (2.3 to 3.5 g/dL) to (2.0 to 3.9 g/dL). A/G Ratio 1.4 1.0 - 2.2 11/17/2024 6:13 PM [facility] DEPARTMENT OF LABORATORY MEDICINE AST/ALT Ratio 0.7 Reference Range Not Established 11/17/2024 6:13 PM [facility] DEPARTMENT OF LABORATORY MEDICINE eGFR (Creatinine) >60 >=60 mL/min/1.73m2 11/17/2024 6:13 PM [facility]MENT OF LABORATORY MEDICINE Comment: [facility] utilizes CKD-EPI Creatinine 2020 to report eGFR. Values < 60 mL/min/1.73 m2 may indicate CKD if present for more than three months AND creatinine is at steady state. The eGFR provides a rough estimate of kidney function. For further guidance, please refer to the CKD: Adult Dairy Processing Equipment Operator Signature pathway. Creatinine Delta 11/17/19 6:13 PM [facility] OF [facility] MEDIC[facility] Comment:No previous creatini ne <5.00 mg/dL is available within the previous 12 months to calculate a delta creatinine. Blood Venipuncture / Unknown 11/17/2024 5:07 PM EST 11/17/2024 5:23 PM EST us John Styles MD LAB BLOOD ORDERABLES Fi nal Result [facility] DEPARTMENT OF LABORATORY MEDICINE [address] [place] [address] * (ABNORMAL) CBC auto differential (11/17/2024 5:07 PM EST) WBC 7.4 4.0 - 11.0 x1000/??L 11/17/2024 5:32 PM [facility] DEPARTMENT OF LABORATORY MEDICINE RBC 4.79 4.00 - 6.00 M/??L 11/17/2024 5:32 PM [facility] DEPARTMENT OF LABORATORY MEDICINE Hemoglobin 12.8 11.7 - 15.5 g/dL 11/17/2024 5:32 PM [facility] DEPARTMENT OF LABORATORY MEDICINE Hematocrit 40.10 35.00 - 45.00 % 11/17/2024 5:32 PM [facility] DEPARTMENT OF LABORATORY MEDICINE MCV 83.7 80.0 - 100.0 fL 11/17/2024 5:32 PM [facility] DEPARTMENT OF LABORATORY MEDICINE MCH 26.7(L) 27.0 - 33.0 pg 11/17/2024 5:32 PM [facility] DEPARTMENT OF LABORATORY MEDICINE MCHC 31.9 31.0 - 36.0 g/dL 11/17/2024 5:32 PM [facility] DEPARTMENT OF LABORATORY MEDICINE RDW-CV 13.7 11.0 - 15.0 % 11/17/2024 5:32 PM [facility] DEPARTMENT OF LABORATORY MEDICINE Platelets 259 150 - 420 x1000/??L 11/17/2024 5:32 PM [facility] DEPARTMENT OF LABORATORY MEDICINE MPV 10.5 8.0 - 12.0 fL 11/17/2024 5:32 PM [facility] DEPARTMENT OF LABORATORY MEDICINE Neutrophils 36.8(L) 39.0 - 72.0 % 11/17/2024 5:32 PM [facility] DEPARTMENT OF LABORATORY MEDICINE Lymphocytes 44.2 17.0 - 50.0 % 11/17/2024 5:32 PM [facility] DEPARTMENT OF LABORATORY MEDICINE Monocytes 13.8(H) 4.0 - 12.0 % 11/17/2024 5:32 PM EST [facility] DEPARTMENT OF LABORATORY MEDICINE Eosinophils 4.2 0.0 - 5.0 % 11/17/2024 5:32 PM [facility] DEPARTMENT OF LABORATORY MEDICINE Basophil 0.5 0.0 - 1.4 % 11/17/2024 5:32 PM [facility] DEPARTMENT OF LABORATORY MEDICINE Immature Granulocytes 0.5 0.0 - 1.0 % 11/17/2024 5:32 PM [facility] DEPARTMENT OF LABORATORY MEDICINE nRBC 0.0 0.0 - 1.0 % 11/17/2024 5:32 PM [facility] DEPARTMENT OF LABORATORY MEDICINE Absolute Lymphocyte Count 3.27 0.60 - 3.70 x 1000/??L 11/17/2024 5:32 PM [facility] DEPARTMENT OF LABORATORY MEDICINE Monocyte Absolute Count 1.02(H) 0.00 - 1.00 x 1000/??L 11/17/2024 5:32 PM [facility] DEPARTMENT OF LABORATORY MEDICINE Eosinophil Absolute Count 0.31 0.00 - 1.00 x 1000/??L 11/17/2024 5:32 PM [facility] DEPARTMENT OF LABORATORY MEDICINE Basophil Absolute Count 0.04 0.00 - 1.00 x 1000/??L 11/17/2024 5:32 PM [facility] DEPARTMENT OF LABORATORY MEDICINE Absolute Immature Granulocyte Count 0.04 0.00 - 0.30 x 1000/??L 11/17/2024 5:32 PM [facility] DEPARTMENT OF LABORATORY MEDICINE Absolute nRBC 0.00 0.00 - 1.00 x 1000/??L 11/17/2024 5:32 PM [facility] DEPARTMENT OF LABORATORY MEDICINE ANC (Abs Neutrophil Count) 2.71 2.00 - 7.60 x 1000/??L 11/17/2024 5:32 PM [facility] DEPARTMENT OF LABORATORY MEDICINE Blood Venipuncture / Unknown 11/17/2024 5:07 PM EST 11/17/2024 5:23 PM EST us John Styles MD LAB BLOOD ORDERABLES Fi nal Result [facility] DEPARTMENT OF LABORATORY MEDICINE [address] [place] [address] * Lipase (11/17/2024 5:07 PM EST) Lipase 26 11 - 55 U/L 11/17/2024 5:57 PM EST [facility]MENT OF LABORATORY MEDICINE Blood Venipuncture / Unknown 11/17/2024 5:07 PM EST 11/17/2024 5:23 PM EST John Styles MD LAB BLOOD ORDERABLES Fi nal Result [facility] DEPARTMENT OF LABORATORY MEDICINE [address] [place] [address] * POCT urine (11/17/2024 4:59 PM EST) Pathologist [facility] Preg Test, Ur, POC Negative Negative [facility] Line in Control Window? (+ Control) Yes [facility] Background Clear? (- Control) Yes [facility] Kit Lot Number [id number] [facility] Expiration Date 03/04/2026 [facility] Urine URINE SPECIMEN / Unknown 11/17/2024 4:59 PM EST John Styles MD POINT OF CARE TEST ORDE RABLES Final Result Performing Organization Address City/[facility]/ZIP Co de Phone Number [facility] from Last 3 Months Insurance [facility] [address] [facility] [address] [facility] Care Teams Optical Worker Relationship Specialty Start Date End Date Xin Murray NP [address] [place] [address] PCP - General 11/17/24
--- OUTSIDE RECORDS SUMMARY | 2025-02-11 16:06 | XMS_ITS | Clinical Summary ---
Author Organization [facility] 's Address [address] [id number] Care Team Providers Care Rock Star Name Role Phone Marcia Grey MD Primary Care Provider [phone] Source Comments Please note that some or [...] obtain the minor's consent prior to disclosure.[facility] Allergies No known active allergies Medications [...] Personal/Family Father 1899 [address] [place] [address] MULTIPLAN Care Teams Rock Star Relationship Specialty Start Date End Date Marcia Grey MD [address] [place] [address] PCP - General 07/14/14
[2025-02-11] MEDS: iohexoL 350 MG/ML 100 ML INFUS..BTL 85 ML IV (16:38)
[2025-02-11] MEDS: Sorbitol/Mannit/Xanth Imaging 500 ML LIQUID 1500 ML PO (16:39)
== END 2025-02-11 15:06 | disposition home or self-care (01) ==
LOC: HO.CT 15:05
PROVIDERS: PCP Nurse Practitioner Family; Visit Provider Nurse Practitioner Family
DX: R19.5 Other fecal abnormalities (principal)
CPT/HCPCS: 74177; Q9967

== ENCOUNTER → 2025-02-11 15:06 | Outpatient (BNV) | payer OTHER, SELFPAY | PROVIDERS: PCP Nurse Practitioner Family; Visit Provider Radiology Diagnostic Radiology | DX: K56.41 Fecal impaction (principal) | CPT/HCPCS: 74177 ==

== ENCOUNTER 2025-03-17 15:39 | Outpatient (AMB) | payer OTHER, SELFPAY ==
--- NOTE | 2025-03-17 15:42 | A.OFFVIS_ITS ---
Vital Signs 03/17/25 15:43 Height 5 ft 1 in Weight 186 lb 6 oz BMI 35.2 Pulse 101 H Pulse Source Pulse Oximeter Pulse Oximetry (%) 99 Oxygen Delivery Method Room Air Intake Visit Reasons: 3mon follow-up Intake Note: Patient presents follow up Sleep/Migraine. Labs in chart. Patient states tired a lot, a lot of stress. getting back into counseling. MRI was denied. Allergies budesonide [From Pulmicort] Allergy (Verified 03/17/25 15:45) Rash HPI Comments Details: 24-yr-old female presents for f/u visit. HST was inconclusive She continues to snores, is fatigued and has sleep difficulties. She is not comfortable with having a PSG to evaluate her sleep, since she has difficulty sleeping in strange places due to nightmares. 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 Baseline headache characteristics: Severe, Pulling tightness in her mid-frontal- pressing/tightness pain a/w photophobia, phonophobia. She reports she continues to have migraines, 1-2 a month and better managed with Topiramate and Rizatriptan. She still has constipation daily and with blood in the stools, she takes miralax. She has internal hemorrhoids on Colonoscopy Aug 2024 and gastritis on endoscopy, GI AST and ALT had been elevated and she tested positive for HEP A virus and titers. Mood is depressed, she wakes up at 2am 1-2 x a month and cleans her room, feels energetic, manic because she has no other means of channeling her engergy and she is trying to find a therapist. Her BMI is elevated, struggles with weight, drinks 64 ounces of water daily, drinks pedialyte 1-2 / week. [facility] Medical History Shingles Bipolar affect, depressed GERD (gastroesophageal reflux disease) Concussion Anxiety and depression Sleep difficulties Postprandial vomiting RLS (restless legs syndrome) Anemia Migraines Surgical History H/O eye surgery Hx of bilateral breast reduction surgery Hx of cholecystectomy Family History Mother Sleep apnea HTN (hypertension) High cholesterol Father Asthma Social History Household Members: Family Both parents involved: Yes Caregiver staying overnight: No Housing: House Are you a primary pulmonary care nurse to a significant other at home: No Do you presently have visiting nurse or other home services: No 75 years or older and lives alone: No Alcohol intake: current Alcohol intake frequency: holidays/special occasions only Patient Tobacco Use Status: Never used Tobacco e-Cigarette/Vaping Use: Never Used Second Hand Smoke Exposure: No Substance Use Type: Marijuana service: No Current occupational status: employed 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 Cognitive needs: No Hearing needs: No Vision needs: Yes (wear glasses) Physical Exam Vital Signs: Last Vital Signs Pulse 101 H 03/17/25 15:43 Pulse Ox 99 03/17/25 15:43 Oxygen Delivery Method Room Air 03/17/25 15:43 BMI result Body Mass Index 35.2 Const General: cooperative, comfortable and no acute distress Nutritional Appearance: average body habitus, obese (BMI is elevated ) and overweight Orientation/consciousness: patient oriented x3 Eyes Pupils: Equal, round and reactive pupils present Resp Effort & Inspection: normal respiratory effort and able to speak in complete sentences Neuro General: patient oriented x3 and moves all extremities Cranial nerves: Yes Equal, round and reactive pupils present Motor exam (neuro): 5/5 motor strength present throughout Psych Appearance: grossly normal Speech and movement: Normal speech and movement present Attitude: cooperative Assessment & Plan Assessment & Plan (1) Fatigue due to sleep pattern disturbance: Code(s): R53.83 - Other fatigue; G47.9 - Sleep disorder, unspecified Category: Medical (2) Bruxism (teeth grinding): Comment: referral for sleep dentistry Code(s): F45.8 - Other somatoform disorders Category: Medical (3) ADHD (attention deficit hyperactivity disorder), inattentive type: Code(s): F90.0 - Attention-deficit hyperactivity disorder, predominantly inattentive type Category: Medical (4) Bipolar disorder with severe katheryn: Code(s): F31.13 - Bipolar disorder, current episode manic without psychotic features, severe Category: Medical (5) Snoring: Code(s): R06.83 - Snoring Category: Medical (6) Chronic migraine without aura: Code(s): G43.709 - Chronic migraine without aura, not intractable, without status migrainosus Category: Medical Qualifiers: Intractability: intractable Status migrainosus presence: without status migrainosus Qualified Code(s): G43.719 - Chronic migraine without aura, intractable, without status migrainosus Plan She needs ongoing therapy for BP disorder, katheryn, anxiety and depression. Meds to be managed by Psychiatrist: Venlafaxine, Wellbutrin , Adderall , Alprazolam Prn, Topiramate Psychologist, recommend weekly sessions and building a therapeutic relationship with therapist, Psychiatrist with f/u care. Obesity BMI is elevated, patient requested referral to Weight management and she discontinued Emgality. HST is inconclusive, she will do a PSG in the future if amenable. Bruxism sleep dentistry referral Continue Rizatriptan prn and Topiramate 100mg po daily for preventative and chronic headache treatments. GI constipation and diarrhea with hemorrhoids, stool softeners and f/u with her specialist at [place]. Neuro-cognitive testing evaluation Mood disorders. MRI is pending insurance approval Labs reviewed with patient today. F/u in 3 months Orders: Referrals Dentistry Referral F45.8 - Other somatoform disorders Medications: Changed From topiramate PO DAILY R51.9 - Headache, unspecified To topiramate take one tablet at 100mg daily for headaches 100 mg PO DAILY 30 days 30 tabs 0RF headaches MDD 100mg R51.9 - Headache, unspecified Patient Instructions: Sleep Hygiene provided: set a scheduled bedtime and wake time to help regulate the circadian rhythm and balance the release of pituitary hormones. Sleep in a dark room, temperatures below 68 degrees, and no devices n bed. Limit caffeinated products 6 hours prior to bed, and limit fluids 2-4 hours prior to bed. Gentle night yoga, diffusing essential oils, and playing soft music can be relaxing. Coding Level of Care Code Est Pt Level 4 (23861) Diagnoses Fatigue due to sleep pattern disturbance R53.83; G47.9 Bruxism (teeth grinding) F45.8 ADHD (attention deficit hyperactivity disorder), inattentive type F90.0 Bipolar disorder with severe katheryn F31.13 Snoring R06.83 Intractable chronic migraine without aura and without status migrainosus G43.719 Intractability: intractable Status migrainosus presence: without status migrainosus Time Spent (min) 30 Comment Improving
[2025-03-17 15:43] VITALS: PULSE 101; O2SAT 99; BMI 35.2
--- OUTSIDE RECORDS SUMMARY | 2025-03-17 18:43 | XMS_ITS | Encounter Summary ---
Author Organization [facility] Address [address] [place] [address] Care Team Providers Care Toby Maker Name Role Phone Xin Murray APRN Primary Care Provider + Encounter Details Date Type Department Care Team (Late st Contact Info) Description 10/22/2024 Scanned Document [address] [place] [id number] Provider, Generic Social History Tobacco Use [...] on filedocumented in this encounter Care Teams Toby Maker Relationship Specialty Start Date End Date Xin Murray APRN [address] [place] [address] PCP - General Family Medicine 10/22/24 documented as of this encounter
== END 2025-03-18 16:12 | disposition home or self-care (01) ==
LOC: HO.HSMS 15:40
PROVIDERS: PCP Nurse Practitioner Family; Visit Provider Physician Assistant Medical
DX: R53.83 Other fatigue (principal); G47.9 Sleep disorder, unspecified; F45.8 Other somatoform disorders; F90.0 Attention-deficit hyperactivity disorder, predominantly inattentive type; F31.13 Bipolar disorder, current episode manic without psychotic features, severe; R06.83 Snoring; G43.719 Chronic migraine without aura, intractable, without status migrainosus
CPT/HCPCS: 99214

== ENCOUNTER → 2025-03-17 15:39 | Outpatient (BNVA) | payer OTHER, SELFPAY | PROVIDERS: PCP Nurse Practitioner Family; Visit Provider Physician Assistant Medical ==